=== PATIENT | female | born 1955 | race Caucasian/White ===

== ENCOUNTER 2022-01-14 19:43 | Emergency (ER) | payer OTHER ==
--- OUTSIDE RECORDS SUMMARY | 2022-01-14 19:49 | XMS REPORT | Continuity of Care Document ---
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 He alth 11:40: s 40 No known 2020-0 No No known UT medications 9-21 medication He alth 11:40: s 40 metFORMIN 2020-0 Yes TAKE 1 UT (Glucophage 9-16 TABLET BY [facility] ) 500 MG 00:00: MOUTH TWO tablet 00 TIMES A DAY (WITH BREAKFAST AND SUPPER) metFORMIN Yes TAKE 1 UT (Glucophage 9-16 TABLET BY [facility] ) 500 MG 00:00: MOUTH TWO tablet 00 TIMES A DAY (WITH BREAKFAST AND SUPPER) metFORMIN 2020-0 Yes TAKE 1 UT (Glucophage 9-16 TABLET BY [facility] ) 500 MG 00:00: MOUTH TWO tablet 00 TIMES A DAY (WITH BREAKFAST AND SUPPER) metFORMIN 2020-0 Yes TAKE 1 UT (Glucophage 9-16 TABLET BY [facility] ) 500 MG 00:00: MOUTH TWO tablet 00 TIMES A DAY (WITH BREAKFAST AND SUPPER) metFORMIN 2020-0 Yes TAKE 1 UT (Glucophage 9-16 TABLET BY [facility] ) 500 MG 00:00: MOUTH TWO tablet 00 TIMES A DAY (WITH BREAKFAST AND SUPPER) metFORMIN 2020-0 Yes TAKE 1 UT (Glucophage 9-16 TABLET BY [facility] ) 500 MG 00:00: MOUTH TWO tablet 00 TIMES A DAY (WITH BREAKFAST AND SUPPER) metFORMIN 2020-0 Yes TAKE 1 UT (Glucophage 9-16 TABLET BY [facility] ) 500 MG 00:00: MOUTH TWO tablet 00 TIMES A DAY (WITH BREAKFAST AND SUPPER) metFORMIN 2020-0 Yes TAKE 1 UT (Glucophage 9-16 TABLET BY [facility] ) 500 MG 00:00: MOUTH TWO tablet 00 TIMES A DAY (WITH BREAKFAST AND SUPPER) metFORMIN 2020-0 Yes TAKE 1 UT (Glucophage 9-16 TABLET BY [facility] ) 500 MG 00:00: MOUTH TWO tablet 00 TIMES A DAY (WITH BREAKFAST AND SUPPER) metFORMIN 2020-0 Yes TAKE 1 UT (Glucophage 9-16 TABLET BY [facility] ) 500 MG 00:00: MOUTH TWO tablet 00 TIMES A DAY (WITH BREAKFAST AND SUPPER) metFORMIN 2020-0 Yes TAKE 1 UT (Glucophage 9-16 TABLET BY [facility] ) 500 MG 00:00: MOUTH TWO tablet 00 TIMES A DAY (WITH BREAKFAST AND SUPPER) metFORMIN 2020-0 Yes TAKE 1 UT (Glucophage 9-16 TABLET BY [facility] ) 500 MG 00:00: MOUTH TWO tablet 00 TIMES A DAY (WITH BREAKFAST AND SUPPER) metFORMIN 2020-0 Yes TAKE 1 UT (Glucophage 9-16 TABLET BY [facility] ) 500 MG 00:00: MOUTH TWO tablet 00 TIMES A DAY (WITH BREAKFAST AND SUPPER) metFORMIN 2020-0 Yes TAKE 1 UT (Glucophage 9-16 TABLET BY [facility] ) 500 MG 00:00: MOUTH TWO tablet 00 TIMES A DAY (WITH BREAKFAST AND SUPPER) metFORMIN 2020-0 Yes TAKE 1 UT (Glucophage 9-16 TABLET BY [facility] ) 500 MG 00:00: MOUTH TWO tablet 00 TIMES A DAY (WITH BREAKFAST AND SUPPER) metFORMIN 2020-0 Yes TAKE 1 UT (Glucophage 9-16 TABLET BY [facility] ) 500 MG 00:00: MOUTH TWO tablet 00 TIMES A DAY (WITH BREAKFAST AND SUPPER) metFORMIN 2020-0 Yes TAKE 1 UT (Glucophage 9-16 TABLET BY [facility] ) 500 MG 00:00: MOUTH TWO tablet 00 TIMES A DAY (WITH BREAKFAST AND SUPPER) metFORMIN 2020-0 Yes TAKE 1 UT (Glucophage 9-16 TABLET BY [facility] ) 500 MG 00:00: MOUTH TWO tablet 00 TIMES A DAY (WITH BREAKFAST AND SUPPER) metFORMIN 2020-0 Yes TAKE 1 UT (Glucophage 9-16 TABLET BY [facility] ) 500 MG 00:00: MOUTH TWO tablet 00 TIMES A DAY (WITH BREAKFAST AND SUPPER) metFORMIN 2020-0 Yes TAKE 1 UT (Glucophage 9-16 TABLET BY [facility] ) 500 MG 00:00: MOUTH TWO tablet 00 TIMES A DAY (WITH BREAKFAST AND SUPPER) metFORMIN 2020-0 Yes TAKE 1 UT (Glucophage 9-16 TABLET BY [facility] ) 500 MG 00:00: MOUTH TWO tablet 00 TIMES A DAY (WITH BREAKFAST AND SUPPER) metFORMIN Yes TAKE 1 UT (Glucophage 9-16 TABLET BY [facility] ) 500 MG 00:00: MOUTH TWO tablet 00 TIMES A DAY (WITH BREAKFAST AND SUPPER) metFORMIN Yes TAKE 1 UT (Glucophage 9-16 TABLET BY [facility] ) 500 MG 00:00: MOUTH TWO tablet 00 TIMES A DAY (WITH BREAKFAST AND SUPPER) oxyCODONE 2020- No [id number] 10mg Take 2 UT (Roxicodone 11-04 tablets [facility] ) 5 MG 00:00: 04:59 (10 mg immediate 00 :00 total) by release mouth tablet every 8 (eight) hours if needed for severe pain for up to 5 days. oxyCODONE 2020- No [id number] 10mg Take 2 UT (Roxicodone 11-04 tablets [facility] ) 5 MG 00:00: 04:59 (10 mg immediate 00 :00 total) by release mouth tablet every 8 (eight) hours if needed for severe pain for up to 5 days. oxyCODONE 2020- No [id number] 10mg Take 2 UT (Roxicodone 11-04 tablets [facility] ) 5 MG 00:00: 04:59 (10 mg immediate 00 :00 total) by release mouth tablet every 8 (eight) hours if needed for severe pain for up to 5 days. oxyCODONE 2020- No [id number] 10mg Take 2 UT (Roxicodone 11-04 tablets [facility] ) 5 MG 00:00: 04:59 (10 mg immediate 00 :00 total) by release mouth tablet every 8 (eight) hours if needed for severe pain for up to 5 days. tiZANidine 2021- No [id number] 4mg QD TAKE 1 UT (Zanaflex) 10-23 CAPSULE (4 [facility] alth 4 MG 00:00: 04:59 MG TOTAL) capsule 00 :00 BY MOUTH AT NIGHT IF NEEDED FOR MUSCLE SPASMS. tiZANidine 2021- No [id number] 4mg QD TAKE 1 UT (Zanaflex) 10-23 CAPSULE (4 [facility] 4 MG 00:00: 04:59 MG TOTAL) capsule 00 :00 BY MOUTH AT NIGHT IF NEEDED FOR MUSCLE SPASMS. tiZANidine No [id number] 4mg QD TAKE 1 UT (Zanaflex) 10-23 CAPSULE (4 [facility] 4 MG 00:00: 04:59 MG TOTAL) capsule 00 :00 BY MOUTH AT NIGHT IF NEEDED FOR MUSCLE SPASMS. tiZANidine No [id number] 4mg QD TAKE 1 UT (Zanaflex) 10-23 CAPSULE (4 [facility] 4 MG 00:00: 04:59 MG TOTAL) capsule 00 :00 BY MOUTH AT NIGHT IF NEEDED FOR MUSCLE SPASMS. tiZANidine No [id number] 4mg QD TAKE 1 UT (Zanaflex) 10-23 CAPSULE (4 [facility] 4 MG 00:00: 04:59 MG TOTAL) capsule 00 :00 BY MOUTH AT NIGHT IF NEEDED FOR MUSCLE SPASMS. tiZANidine No [id number] 4mg QD TAKE 1 UT (Zanaflex) 10-23 CAPSULE (4 [facility] 4 MG 00:00: 04:59 MG TOTAL) capsule 00 :00 BY MOUTH AT NIGHT IF NEEDED FOR MUSCLE SPASMS. tiZANidine 2021- No [id number] 4mg QD TAKE 1 UT (Zanaflex) 10-23 CAPSULE (4 [facility] 4 MG 00:00: 04:59 MG TOTAL) capsule 00 :00 BY MOUTH AT NIGHT IF NEEDED FOR MUSCLE SPASMS. tiZANidine 2021- No [id number] 4mg QD TAKE 1 UT (Zanaflex) 10-23 CAPSULE (4 [facility] 4 MG 00:00: 04:59 MG TOTAL) capsule 00 :00 BY MOUTH AT NIGHT IF NEEDED FOR MUSCLE SPASMS. tiZANidine 2021- No [id number] 4mg QD TAKE 1 UT (Zanaflex) 10-23 CAPSULE (4 [facility] 4 MG 00:00: 04:59 MG TOTAL) capsule 00 :00 BY MOUTH AT NIGHT IF NEEDED FOR MUSCLE SPASMS. tiZANidine 2021- No [id number] 4mg QD TAKE 1 UT (Zanaflex) 10-23 CAPSULE (4 [facility] 4 MG 00:00: 04:59 MG TOTAL) capsule 00 :00 BY MOUTH AT NIGHT IF NEEDED FOR MUSCLE SPASMS. tiZANidine 2020- No [id number] 4mg QD TAKE 1 UT (Zanaflex) 10-23 CAPSULE (4 [facility] 4 MG 00:00: 00:00 MG TOTAL) capsule 00 :00 BY MOUTH AT NIGHT IF NEEDED FOR MUSCLE SPASMS. tiZANidine 2020- No [id number] 4mg QD TAKE 1 UT (Zanaflex) 10-23 CAPSULE (4 [facility] 4 MG 00:00: 00:00 MG TOTAL) capsule 00 :00 BY MOUTH AT NIGHT IF NEEDED FOR MUSCLE SPASMS. traMADol 2020- No [id number] 50mg Q6H Take 1 UT (Ultram) 50 10-22-11 tablet (50 [facility] MG tablet 00:00: 04:59 mg total) 00 :00 by mouth every 6 (six) hours if needed for severe pain for up to 10 days. traMADol 2020- No [id number] 50mg Q6H Take 1 UT (Ultram) 50 8- 09-11 tablet (50 [facility] MG tablet 00:00: 04:59 mg total) 00 :00 by mouth every 6 (six) hours if needed for severe pain for up to 10 days. DULoxetine 2020-0 Yes QD Take by [facility] (Cymbalta) 8-14 mouth [address] 00:00: (one) time capsule 00 each day. omeprazole 2020-0 Yes QD Take by [facility] (PriLOSEC) 8-14 mouth [address] 00:00: (one) time capsule 00 each day. DULoxetine 2020-0 Yes QD Take by [facility] (Cymbalta) 8-14 mouth [address] 00:00: (one) time capsule 00 each day. omeprazole 2021-0 Yes QD Take by [facility] (PriLOSEC) 8-14 mouth [address] 00:00: (one) time capsule 00 each day. DULoxetine 2020-0 Yes QD Take by UT (Cymbalta) 8-14 mouth [address] [facility] [address] 00:00: (one) time capsule 00 each day. omeprazole 2021-0 Yes QD Take by UT (PriLOSEC) 8-14 mouth [address] 00:00: (one) time capsule 00 each day. DULoxetine 2021-0 Yes QD Take by UT (Cymbalta) 8-14 mouth [address] [facility] [address] 00:00: (one) time capsule 00 each day. omeprazole 2021-0 Yes QD Take by UT (PriLOSEC) 8-14 mouth [address] [facility] [address] 00:00: (one) time capsule 00 each day. DULoxetine 2021-0 Yes QD Take by UT (Cymbalta) 8-14 mouth [address] [facility] [address] 00:00: (one) time capsule 00 each day. omeprazole 2021-0 Yes QD Take by UT (PriLOSEC) 8-14 mouth [address] [facility] [address] 00:00: (one) time capsule 00 each day. DULoxetine 2021-0 Yes QD Take by UT (Cymbalta) 8-14 mouth [address] [facility] [address] 00:00: (one) time capsule 00 each day. omeprazole 2021-0 Yes QD Take by UT (PriLOSEC) 8-14 mouth [address] [facility] [address] 00:00: (one) time capsule 00 each day. DULoxetine 2021-0 Yes QD Take by UT (Cymbalta) 8-14 mouth [address] [facility] [address] 00:00: (one) time capsule 00 each day. omeprazole 2021-0 Yes QD Take by UT (PriLOSEC) 8-14 mouth [address] [facility] [address] 00:00: (one) time capsule 00 each day. DULoxetine 2021-0 Yes QD Take by UT (Cymbalta) 8-14 mouth [address] [facility] [address] 00:00: (one) time capsule 00 each day. omeprazole 2021-0 Yes QD Take by UT (PriLOSEC) 8-14 mouth [address] [facility] [address] 00:00: (one) time capsule 00 each day. DULoxetine 2021-0 Yes QD Take by UT (Cymbalta) 8-14 mouth [address] [facility] [address] 00:00: (one) time capsule 00 each day. omeprazole 2021-0 Yes QD Take by UT (PriLOSEC) 8-14 mouth [address] [facility] [address] 00:00: (one) time capsule 00 each day. DULoxetine 2021-0 Yes QD Take by UT (Cymbalta) 8-14 mouth [address] [facility] [address] 00:00: (one) time capsule 00 each day. omeprazole 2021-0 Yes QD Take by UT (PriLOSEC) 8-14 mouth [address] [facility] [address] 00:00: (one) time capsule 00 each day. DULoxetine 2021-0 Yes QD Take by UT (Cymbalta) 8-14 mouth [address] [facility] [address] 00:00: (one) time capsule 00 each day. omeprazole 2021-0 Yes QD Take by UT (PriLOSEC) 8-14 mouth [address] [facility] [address] 00:00: (one) time capsule 00 each day. DULoxetine 2021-0 Yes QD Take by UT (Cymbalta) 8-14 mouth [address] [facility] [address] 00:00: (one) time capsule 00 each day. omeprazole 2021-0 Yes QD Take by UT (PriLOSEC) 8-14 mouth [address] [facility] [address] 00:00: (one) time capsule 00 each day. DULoxetine 2021-0 Yes QD Take by UT (Cymbalta) 8-14 mouth [address] [facility] [address] 00:00: (one) time capsule 00 each day. omeprazole 2021-0 Yes QD Take by UT (PriLOSEC) 8-14 mouth [address] [facility] [address] 00:00: (one) time capsule 00 each day. DULoxetine 2021-0 Yes QD Take by UT (Cymbalta) 8-14 mouth [address] [facility] [address] 00:00: (one) time capsule 00 each day. omeprazole 2021-0 Yes QD Take by UT (PriLOSEC) 8-14 mouth [address] [facility] [address] 00:00: (one) time capsule 00 each day. DULoxetine 2021-0 Yes QD Take by UT (Cymbalta) 8-14 mouth [address] [facility] [address] 00:00: (one) time capsule 00 each day. omeprazole 2021-0 Yes QD Take by UT (PriLOSEC) 8-14 mouth [address] [facility] [address] 00:00: (one) time capsule 00 each day. DULoxetine 2021-0 Yes QD Take by UT (Cymbalta) 8-14 mouth [address] [facility] [address] 00:00: (one) time capsule 00 each day. omeprazole 2021-0 Yes QD Take by UT (PriLOSEC) 8-14 mouth [address] [facility] [address] 00:00: (one) time capsule 00 each day. DULoxetine 2021-0 Yes QD Take by UT (Cymbalta) 8-14 mouth [address] [facility] [address] 00:00: (one) time capsule 00 each day. omeprazole 2021-0 Yes QD Take by UT (PriLOSEC) 8-14 mouth [address] [facility] [address] 00:00: (one) time capsule 00 each day. DULoxetine 2021-0 Yes QD Take by UT (Cymbalta) 8-14 mouth [address] [facility] [address] 00:00: (one) time capsule 00 each day. omeprazole 2021-0 Yes QD Take by UT (PriLOSEC) 8-14 mouth [address] [facility] [address] 00:00: (one) time capsule 00 each day. DULoxetine 2021-0 Yes QD Take by UT (Cymbalta) 8-14 mouth [address] [facility] [address] 00:00: (one) time capsule 00 each day. omeprazole 2021-0 Yes QD Take by UT (PriLOSEC) 8-14 mouth [address] [facility] [address] 00:00: (one) time capsule 00 each day. DULoxetine 2021-0 Yes QD Take by UT (Cymbalta) 8-14 mouth [address] [facility] [address] 00:00: (one) time capsule 00 each day. omeprazole 2021-0 Yes QD Take by UT (PriLOSEC) 8-14 mouth [address] [facility] [address] 00:00: (one) time capsule 00 each day. DULoxetine 2021-0 Yes QD Take by UT (Cymbalta) 8-14 mouth [address] [facility] [address] 00:00: (one) time capsule 00 each day. omeprazole 2021-0 Yes QD Take by UT (PriLOSEC) 8-14 mouth [address] [facility] [address] 00:00: (one) time capsule 00 each day. DULoxetine 2021-0 Yes QD Take by UT (Cymbalta) 8-14 mouth [address] [facility] [address] 00:00: (one) time capsule 00 each day. omeprazole 2020-0 Yes QD Take by UT (PriLOSEC) 8-14 mouth [address] [facility] [address] 00:00: (one) time capsule 00 each day. DULoxetine 2020-0 Yes QD Take by UT (Cymbalta) 8-14 mouth [address] [facility] [address] 00:00: (one) time capsule 00 each day. omeprazole 2020-0 Yes QD Take by UT (PriLOSEC) 8-14 mouth [address] 00:00: (one) time capsule 00 each day. tiZANidine 2021- No [id number] 4mg QD TAKE 1 UT (Zanaflex) 09-24-04 CAPSULE (4 He alth 4 MG 00:00: 04:59 MG TOTAL) capsule 00 :00 BY MOUTH AT NIGHT IF NEEDED FOR MUSCLE SPASMS. tiZANidine 2021- No [id number] 4mg QD TAKE 1 UT (Zanaflex) 09-24- CAPSULE (4 [facility] alth 4 MG 00:00: 04:59 MG TOTAL) capsule 00 :00 BY MOUTH AT NIGHT IF NEEDED FOR MUSCLE SPASMS. tiZANidine 2021- No [id number] 4mg QD TAKE 1 UT (Zanaflex) 09-24- CAPSULE (4 [facility] 4 MG 00:00: 04:59 MG TOTAL) capsule 00 :00 BY MOUTH AT NIGHT IF NEEDED FOR MUSCLE SPASMS. tiZANidine 2021- No [id number] 4mg QD TAKE 1 UT (Zanaflex) 09-24- CAPSULE (4 [facility] al[facility] 4 MG 00:00: 04:59 MG TOTAL) capsule 00 :00 BY MOUTH AT NIGHT IF NEEDED FOR MUSCLE SPASMS. tiZANidine 2021- No [id number] 4mg QD TAKE 1 UT (Zanaflex) 09-24-04 CAPSULE (4 [facility] alth 4 MG 00:00: 04:59 MG TOTAL) capsule 00 :00 BY MOUTH AT NIGHT IF NEEDED FOR MUSCLE SPASMS. tiZANidine 2021- No [id number] 4mg QD TAKE 1 UT (Zanaflex) 09-24-04 CAPSULE (4 [facility] alth 4 MG 00:00: 04:59 MG TOTAL) capsule 00 :00 BY MOUTH AT NIGHT IF NEEDED FOR MUSCLE SPASMS. tiZANidine 2021- No [id number] 4mg QD TAKE 1 UT (Zanaflex) 09-24 CAPSULE (4 [facility] al[facility] 4 MG 00:00: 04:59 MG TOTAL) capsule 00 :00 BY MOUTH AT NIGHT IF NEEDED FOR MUSCLE SPASMS. tiZANidine 2020- No [id number] 4mg QD TAKE 1 UT (Zanaflex) 09-24 CAPSULE (4 [facility] al[facility] 4 MG 00:00: 00:00 MG TOTAL) capsule 00 :00 BY MOUTH AT NIGHT IF NEEDED FOR MUSCLE SPASMS. tiZANidine 2020- No [id number] 4mg QD TAKE 1 UT (Zanaflex) 09-24 CAPSULE (4 [facility] al[facility] 4 MG 00:00: 00:00 MG TOTAL) capsule 00 :00 BY MOUTH AT NIGHT IF NEEDED FOR MUSCLE SPASMS. rosuvastati Yes TAKE 1 UT n (Crestor) 7-23 TABLET BY [facility] 10 MG 00:00: MOUTH tablet 00 DAILY IN EVENING rosuvastati Yes TAKE 1 UT n (Crestor) 7-23 TABLET BY [facility] 10 MG 00:00: MOUTH tablet 00 DAILY IN EVENING rosuvastati Yes TAKE 1 UT n (Crestor) 7-23 TABLET BY [facility] 10 MG 00:00: MOUTH tablet 00 DAILY IN EVENING rosuvastati Yes TAKE 1 UT n (Crestor) 7-23 TABLET BY [facility] 10 MG 00:00: MOUTH tablet 00 DAILY IN EVENING rosuvastati Yes TAKE 1 UT n (Crestor) 7-23 TABLET BY [facility] 10 MG 00:00: MOUTH tablet 00 DAILY IN EVENING rosuvastati Yes TAKE 1 UT n (Crestor) 7-23 TABLET BY [facility] 10 MG 00:00: MOUTH tablet 00 DAILY IN EVENING rosuvastati Yes TAKE 1 UT n (Crestor) 7-23 TABLET BY [facility] 10 MG 00:00: MOUTH tablet 00 DAILY IN EVENING rosuvastati Yes TAKE 1 UT n (Crestor) 7-23 TABLET BY [facility] 10 MG 00:00: MOUTH tablet 00 DAILY IN EVENING rosuvastati Yes TAKE 1 UT n (Crestor) 7-23 TABLET BY [facility] 10 MG 00:00: MOUTH tablet 00 DAILY IN EVENING rosuvastati Yes TAKE 1 UT n (Crestor) 7-23 TABLET BY [facility] 10 MG 00:00: MOUTH tablet 00 DAILY IN EVENING rosuvastati Yes TAKE 1 UT n (Crestor) 7-23 TABLET BY [facility] 10 MG 00:00: MOUTH tablet 00 DAILY IN EVENING rosuvastati Yes TAKE 1 UT n (Crestor) 7-23 TABLET BY [facility] 10 MG 00:00: MOUTH tablet 00 DAILY IN EVENING rosuvastati Yes TAKE 1 UT n (Crestor) 7-23 TABLET BY [facility] 10 MG 00:00: MOUTH tablet 00 DAILY IN EVENING rosuvastati Yes TAKE 1 UT n (Crestor) 7-23 TABLET BY [facility] 10 MG 00:00: MOUTH tablet 00 DAILY IN EVENING rosuvastati Yes TAKE 1 UT n (Crestor) 7-23 TABLET BY [facility] 10 MG 00:00: MOUTH tablet 00 DAILY IN EVENING rosuvastati Yes TAKE 1 UT n (Crestor) 7-23 TABLET BY [facility] 10 MG 00:00: MOUTH tablet 00 DAILY IN EVENING rosuvastati Yes TAKE 1 UT n (Crestor) 7-23 TABLET BY [facility] 10 MG 00:00: MOUTH tablet 00 DAILY IN EVENING rosuvastati Yes TAKE 1 UT n (Crestor) 7-23 TABLET BY [facility] 10 MG 00:00: MOUTH tablet 00 DAILY IN EVENING rosuvastati Yes TAKE 1 UT n (Crestor) 7-23 TABLET BY [facility] 10 MG 00:00: MOUTH tablet 00 DAILY IN EVENING rosuvastati Yes TAKE 1 UT n (Crestor) 7-23 TABLET BY [facility] 10 MG 00:00: MOUTH tablet 00 DAILY IN EVENING rosuvastati Yes TAKE 1 UT n (Crestor) 7-23 TABLET BY [facility] 10 MG 00:00: MOUTH tablet 00 DAILY IN EVENING rosuvastati Yes TAKE 1 UT n (Crestor) 7-23 TABLET BY [facility] 10 MG 00:00: MOUTH tablet 00 DAILY IN EVENING rosuvastati Yes TAKE 1 UT n (Crestor) 7-23 TABLET BY [facility] 10 MG 00:00: MOUTH tablet 00 DAILY IN EVENING tiZANidine 2021- No [id number] 4mg QD TAKE 1 UT (Zanaflex) 08-29- CAPSULE (4 He alth 4 MG 00:00: 04:59 MG TOTAL) capsule 00 :00 BY MOUTH AT NIGHT IF NEEDED FOR MUSCLE SPASMS. tiZANidine 2020- No [id number] 4mg QD TAKE 1 UT (Zanaflex) 08-29 CAPSULE (4 He alth 4 MG 00:00: 00:00 MG TOTAL) capsule 00 :00 BY MOUTH AT NIGHT IF NEEDED FOR MUSCLE SPASMS. tiZANidine 2021- No [id number] 4mg QD Take 1 UT (Zanaflex) 08-07 capsule (4 He alth 4 MG 00:00: 04:59 mg total) capsule 00 :00 by mouth at night if needed for muscle spasms. tiZANidine 2020- No [id number] 4mg QD Take 1 UT (Zanaflex) 08-07- capsule (4 He alth 4 MG 00:00: 00:00 mg total) capsule 00 :00 by mouth at night if needed for muscle spasms. tiZANidine 2020- No [id number] 4mg QD Take 1 UT (Zanaflex) 08-07- capsule (4 He alth 4 MG 00:00: 00:00 mg total) capsule 00 :00 by mouth at night if needed for muscle spasms. tiZANidine 2020- No [id number] 4mg QD Take 1 UT (Zanaflex) 08-07- capsule (4 He alth 4 MG 00:00: 00:00 mg total) capsule 00 :00 by mouth at night if needed for muscle spasms. ergocalcife Yes TAKE 1 [facility] rol 4-14 CAPSULE [facility] (Vitamin 00:00: WEEKLY. D2) 1.25 MG 00 (33374 UT) capsule ergocalcife Yes TAKE 1 UT rol 06-05 CAPSULE [facility] (Vitamin 00:00: WEEKLY. D2) 1.25 MG 00 (99331 UT) capsule traMADol traMADol Yes CHACE 1 Q6H TAKE 1 UT HCl - 50 MG HCl - 50 MG -14 RAMIRE[facility] TABLET [facility] Oral Tablet Oral Tablet 00:00: P.A. EVERY 6 ans 00 HOURS PRN pain Vitamin D Vitamin D Yes CHACE TAKE 1 UT (Ergocalcif (Ergocalcif -14 [facility]IRE[facility] CAPSULE [facility] anil) 1.25 anil) 1.25 00:00: P.A. WEEKLY. ans MG (24294 MG (63036 00 UT) Oral UT) Oral Capsule Capsule ergocalcife 2020- No TAKE 1 UT rol 06-05 CAPSULE Health (Vitamin 00:00: 00:00 WEEKLY. D2) 1.25 MG 00 :00 (75096 UT) capsule ergocalcife 0 2020- No TAKE 1 UT rol 06-05 CAPSULE Health (Vitamin 00:00: 00:00 WEEKLY. D2) 1.25 MG 00 :00 (31313 UT) capsule HYDROcodone HYDROcodone Yes MILLI 2 TAKE 1 TO UT -Acetaminop -Acetaminop 4 MALIK Shah 2 TABLETS [facility] hen 10-325 hen 10-325 00:00: EVERY 4 TO ans MG Oral MG Oral 00 6 HOURS Tablet Tablet NEEDED FOR PAIN. TRAMADOL 50 0 Yes [id number] TAKE 1 [facility] mg tablet 6-21 TABLET BY [facility] o f 00:00: MOUTH [place] 00 EVERY 8 Medical HOURS Branch NEEDED FOR PAIN SCALE 7-10 TRAMADOL 50 Yes [id number] TAKE 1 [facility] mg tablet 6-21 TABLET BY ity o f 00:00: MOUTH [place] 00 EVERY 8 Medical HOURS Branch NEEDED FOR PAIN SCALE 7-10 TRAMADOL 50 2018-0 Yes [id number] TAKE 1 [facility] mg tablet 6-21 TABLET BY ity o f 00:00: MOUTH [place] 00 EVERY 8 Medical HOURS Branch NEEDED FOR PAIN SCALE 7-10 TRAMADOL 50 2018-0 Yes [id number] TAKE 1 [facility] mg tablet 6-21 TABLET BY ity o f 00:00: MOUTH [place] 00 EVERY 8 Medical HOURS Branch NEEDED FOR PAIN SCALE 7-10 TRAMADOL 50 2019-0 Yes [id number] TAKE 1 [facility] mg tablet 6-21 TABLET BY ity o f 00:00: MOUTH [place] EVERY 8 Medical HOURS Branch NEEDED FOR PAIN SCALE 7-10 TRAMADOL 50 2019-0 Yes [id number] TAKE 1 [facility] mg tablet 6-21 TABLET BY ity o f 00:00: MOUTH [place] EVERY 8 Medical HOURS Branch NEEDED FOR PAIN SCALE 7-10 omeprazole 2019-0 Yes 40mg Take 40 mg U nivers 40 mg 2-02 by mouth ity of capsule 00:00: in the [place] morning. Medical Branch omeprazole 2019-0 Yes 40mg Take 40 mg U nivers 40 mg 2-02 by mouth ity of capsule 00:00: in the [place] morning. Medical Branch omeprazole 2019-0 Yes 40mg Take 40 mg U nivers 40 mg 2-02 by mouth ity of capsule 00:00: in the [place] morning. Medical Branch omeprazole 2019-0 Yes 40mg Take 40 mg U nivers 40 mg 2-02 by mouth ity of capsule 00:00: in the [place] morning. Medical Branch omeprazole 2019-0 Yes 40mg Take 40 mg U nivers 40 mg 2-02 by mouth ity of capsule 00:00: in the [place] morning. Medical Branch omeprazole 2019-0 Yes 40mg Take 40 mg U nivers 40 mg 2-02 by mouth ity of capsule 00:00: in the [place] morning. Medical Branch ondansetron 2019-0 Yes 4mg Take 4 mg U nivers 4 mg tablet 1-08 by mouth ity of 00:00: as needed. Medical Branch ondansetron 2019-0 Yes 4mg Take 4 mg U nivers 4 mg tablet 1-08 by mouth ity of 00:00: as needed. Medical Branch ondansetron 2019-0 Yes 4mg Take 4 mg U nivers 4 mg tablet 1-08 by mouth ity of 00:00: as needed. Medical Branch ondansetron 2019-0 Yes 4mg Take 4 mg U nivers 4 mg tablet 1-08 by mouth ity of 00:00: as needed. Medical Branch ondansetron 2019-0 Yes 4mg Take 4 mg U nivers 4 mg tablet 1-08 by mouth ity of 00:00: as needed. [place] [facility] ondansetron 2019-0 Yes 4mg Take 4 mg U nivers 4 mg tablet 1-08 by mouth ity of 00:00: as needed. [place] [facility] mesalamine 2019-0 Yes 800mg Take 800 Un theresa 800 mg EC 1-04 mg by ity of tablet 00:00: mouth in [place] 00 the Medical morning Branch and 800 mg in the evening. mesalamine 2019-0 Yes 800mg Take 800 Un theresa 800 mg EC 1-04 mg by ity of tablet 00:00: mouth in [place] [address] the Medical morning Branch and 800 mg in the evening. mesalamine 2019-0 Yes 800mg Take 800 Un theresa 800 mg EC 1-04 mg by ity of tablet 00:00: mouth in [place] [address] the Medical morning Branch and 800 mg in the evening. mesalamine 2019-0 Yes 800mg Take 800 Un theresa 800 mg EC 1-04 mg by ity of tablet 00:00: mouth in [place] [address] the Medical morning Branch and 800 mg in the evening. mesalamine 2019-0 Yes 800mg Take 800 Un theresa 800 mg EC 1-04 mg by ity of tablet 00:00: mouth in [place] [address] the Medical morning Branch and 800 mg in the evening. mesalamine 2019-0 Yes 800mg Take 800 Un theresa 800 mg EC 1-04 mg by ity of tablet 00:00: mouth in [place] [address] the Medical morning Branch and 800 mg in the evening. valsartan 2019-0 Yes 80mg Take 80 mg Un theresa 80 mg 1-02 by mouth ity of tablet 00:00: in the [place] morning. Medical Branch valsartan 2019-0 Yes 80mg Take 80 mg Un theresa 80 mg 1-02 by mouth ity of tablet 00:00: in the [place] morning. Medical Branch valsartan 2019-0 Yes 80mg Take 80 mg Un theresa 80 mg 1-02 by mouth ity of tablet 00:00: in the [place] morning. Medical Branch valsartan 2019-0 Yes 80mg Take 80 mg Un theresa 80 mg 1-02 by mouth ity of tablet 00:00: in the [place] morning. Medical Branch valsartan 2019-0 Yes 80mg Take 80 mg Un theresa 80 mg 1-02 by mouth ity of tablet 00:00: in the [place] 00 morning. Medical Branch valsartan 2019-0 Yes 80mg Take 80 mg Un theresa 80 mg -02 by mouth ity of tablet 00:00: in the [place] 00 morning. Medical Branch Immunizations Ordered Filled Immunization Date Status Comments [facility] e Immunization Name Name SARS-COV-2 COVID-19 2021-02-04 Completed Unive rsity of MODERNA 12+ YRS 00:00:00 [place] [facility] ical VACCINE Branch SARS-COV-2 COVID-19 2021-02-04 Completed Unive rsity of MODERNA 12+ YRS 00:00:00 [facility] ical VACCINE Branch SARS-COV-2 COVID-19 2021-02-04 Completed [facility]ive rsity of MODERNA 12+ YRS 00:00:00 [facility] ical VACCINE Branch SARS-COV-2 COVID-19 2021-02-04 Completed [facility]ive rs[facility] of MODERNA 12+ YRS 00:00:00 [facility] ical VACCINE Branch COVID-19 Moderna 18 2020-04-16 [facility] Vacc[facility]:00 COVID-19 Moderna 18 2020-04-16 [facility] Vacc[facility] 00:00:00 COVID-19 Moderna 18 2020-04-16 Completed [facility] Vacc[facility] 00:00:00 COVID-19 Moderna 18 2020-04-16 [facility] 00:00:00 COVID-19 Moderna 12 2020-04-16 Completed [facility] 00:00:00 (WET TRIMMER) COVID-19 Moderna 12 2020-04-16 Completed [facility] 00:00:00 (WET TRIMMER) COVID-19 Moderna 12 2020-04-16 Completed [facility] 00:00:00 (WET TRIMMER) COVID-19 Moderna 12 2020-04-16 Completed [facility] 00:00:00 (WET TRIMMER) COVID-19 Moderna 12 2020-04-16 Completed [facility] 00:00:00 (WET TRIMMER) COVID-19 Moderna 12 2020-04-16 Completed [facility] 00:00:00 (WET TRIMMER) COVID-19 Moderna 18 2020-03-19 Completed [facility] 00:00:00 COVID-19 Moderna 18 2020-03-19 Completed [facility] 00:00:00 COVID-19 Moderna 18 2020-03-19 Completed [facility] 00:00:00 COVID-19 Moderna 18 2020-03-19 Completed [facility] 00:00:00 COVID-19 Moderna 12 2020-03-19 Completed [facility] 00:00:00 (WET TRIMMER) COVID-19 Moderna 12 2020-03-19 Completed [facility] 00:00:00 (WET TRIMMER) COVID-19 Moderna 12 2020-03-19 Completed [facility] 00:00:00 (WET TRIMMER) COVID-19 Moderna 12 2020-03-19 Completed [facility] 00:00:00 (WET TRIMMER) COVID-19 Moderna 12 2020-03-19 Completed [facility] 00:00:00 (WET TRIMMER) COVID-19 Moderna 12 2020-03-19 Completed [facility] 00:00:00 (WET TRIMMER) Vital Signs Vital Name Observation Time Observation Value Comments Source Systolic blood 2021-12-10 14:20:00 154 mm[Hg] Univer sity of pressure [facility] Diastolic blood 2021-12-10 14:20:00 61 mm[Hg] Unive [facility] Heart rate 2021-12-10 14:20:00 59 /min [facility] Respiratory rate 2021-12-10 14:20:00 16 /min [facility] Oxygen saturation in 2021-12-10 14:20:00 99 /min [facility] Arterial blood by [facility] Pulse oximetry Branch Body temperature 2021-12-10 14:06:00 36.11 Pratima [facility] Body height 2021-12-08 11:57:00 157.5 cm [facility] Body weight 2021-12-08 11:57:00 98.9 kg [facility] BMI 2021-12-08 11:57:00 39.87 kg/m2 [facility] Systolic blood 2021-12-10 12:49:00 135 mm[Hg] Univer sity of pressure [facility] Diastolic blood 2021-12-10 12:49:00 61 mm[Hg] Unive rsity of pressure [facility] Heart rate 2021-12-10 12:49:00 78 /min [facility] Body temperature 2021-12-10 12:42:00 36.56 Pratima [facility] Respiratory rate 2021-12-10 12:42:00 18 /min Univ [facility] Oxygen saturation in 2021-12-10 12:42:00 99 /min [facility] of Arterial blood by [place] [employer] Pulse oximetry Branch Body height 2021-12-08 11:57:00 157.5 cm [facility] Body weight 2021-12-08 11:57:00 98.9 kg [facility] BMI 2021-12-08 11:57:00 39.87 kg/m2 [facility] Body height 2021-12-05 16:04:00 [facility]5 [facility] 2021-12-05 16:04:00 98.431 [facility] BMI 2021-12-05 16:04:00 39.68 kg[facility]m2 [facility] Systolic blood 2021-11-26 14:56:00 126 mm[Hg] Univer sity of pressure [facility] Diastolic blood 2021-11-26 14:56:00 60 mm[Hg] Unive rsity of pressure [facility] Heart rate 2021-11-26 14:56:00 84 /min [facility] Respiratory rate 2021-11-26 14:56:00 19 /min [facility] Oxygen saturation in 2021-11-26 14:56:00 98 /min University of Arterial blood by [facility] Pulse oximetry Branch Body temperature 2021-11-26 14:40:00 36.61 Pratima Univ [facility] Body height 2021-11-13 16:35:00 157.5 cm [facility] Body weight 2021-11-13 16:35:00 105.1 kg [facility] BMI 2021-11-13 16:35:00 42.37 kg/m2 Universi ty [facility] Systolic blood 2021-11-26 12:36:00 154 mm[Hg] Univer sity of pressure [facility] Diastolic blood 2021-11-26 12:36:00 84 mm[Hg] Unive rsity of pressure [facility] Heart rate 2021-11-26 12:36:00 89 /min Universi ty [facility] Body temperature 2021-11-26 12:36:00 36.33 Pratima [facility] Respiratory rate 2021-11-26 12:36:00 14 /min [facility] O[facility] saturation in 2021-11-26 12:36:00 99 /min [facility] Arterial blood by [facility] Pulse oximetry Branch Body height 2021-11-13 16:35:00 157.5 cm Universi ty [facility] Body weight 2021-11-13 16:35:00 105.1 kg Universi [facility] BMI 2021-11-13 16:35:00 42.37 [facility] Body height 2021-11-11 15:50:00 157.5 cm [facility] 2021-11-11 15:50:00 98.431 [facility] BMI 2021-11-11 15:50:00 39.69 kg/m2 [facility] Body height 2021-10-13 15:02:00 157.5 cm [facility] Body weight 2021-10-13 15:02:00 100.245 kg [facility] BMI 2021-10-13 15:02:00 40.42 kg/m2 [facility] Body height 2020-11-22 23:08:16 156.2 cm [facility] Body weight 2020-11-22 23:08:16 100 kg [facility] BMI 2020-11-22 23:08:16 40.98 kg/m2 [facility] Body height 2020-11-22 23:08:16 156.2 cm [facility] Body weight 2020-11-22 23:08:16 100 kg [facility] BMI 2020-11-22 23:08:16 40.98 kg/m2 [facility] Body height 2020-11-22 23:08:16 156.2 cm [facility] Body weight 2020-11-22 23:08:16 100 kg [facility] BMI 2020-11-22 23:08:16 40.98 kg/m2 [facility] Body height 2020-11-22 23:08:16 156.2 cm [facility] Body weight 2020-11-22 23:08:16 100 kg [facility] BMI 2020-11-22 23:08:16 40.98 kg/m2 [facility] Body height 2020-11-12 16:13:00 156.2 cm [facility] Body weight 2020-11-12 16:13:00 100.336 kg [facility] BMI 2020-11-12 16:13:00 41.12 kg/m2 [facility] Procedures Procedure Date / Time Performing Source Performed Clinician PHACOEMULSIFICATION OF 2021-12-10 Rome Serrano [facility] CATARACT WITH INTRAOCULAR 13:25:00 Medica l Branch LENS IMPLANT POCT GLUCOSE (AUTOMATED) 2021-12-10 Rome Serrano [facility] 12:50:00 Medical Branch POCT GLUCOSE (AUTOMATED) 2021-12-10 Rome Serrano [facility] 12:50:00 Medical Branch PATIENT QUESTIONNAIRE 2021-12-10 Doctor Unassvineet, [facility] 05:01:00 [place] [facility] DAY SURGERY - ADC 2021-12-10 Doctor Unassigned, [facility] 05:01:00 [place] [facility] CONSENT/REFUSAL FOR DIAGNOSIS 2021-12-08 Doctor Unassigned, [facility] AND TREATMENT 15:08:31 [place] [facility] CONSENT/REFUSAL FOR DIAGNOSIS 2021-12-08 Doctor Unassigned, [facility] AND TREATMENT 15:08:31 [place] [facility] ASSIGNMENT OF BENEFITS 2021-12-08 Doctor Unassvineet, [facility] 15:07:39 [place] [facility] ASSIGNMENT OF BENEFITS 2021-12-08 Doctor Unassigned, [facility] 15:07:39 [place] [facility] PHACOEMULSIFICATION OF 2021-11-26 Rome Serrano [facility] CATARACT WITH INTRAOCULAR 14:05:00 Medica l Branch LENS IMPLANT POCT GLUCOSE (AUTOMATED) 2021-11-26 Rome Serrano [facility] 12:56:00 Medical Branch POCT GLUCOSE (AUTOMATED) 2021-11-26 Rome Serrano [facility] 12:56:00 Medical Branch POCT GLUCOSE(AGE >30DAYS) 2021-11-26 Rome Serrano [facility] 12:55:00 Medical Branch POCT GLUCOSE(AGE >30DAYS) 2021-11-26 Rome Serrano [facility] 12:55:00 Medical Branch ASSIGNMENT OF BENEFITS 2021-11-21 Doctor Unassigned, [facility] 21:33:15 [place] [facility] XR FEMUR 2+ VW LEFT 2020-11-22 Kristie Jan [facility] 16:40:27 XR FEMUR 2+ VW LEFT 2020-11-22 Kristie Jan [facility] 16:40:[address] [facility] 14:30[facility] 2020[facility]10[facility] 14[facility]30:51 Post Op Promis 29 Survey 2020-05-23 [facility] Encounters Start End Encounter Admission Attending Care Care Encounter Source Date/Time Date/Time Type Type Clinicians Facility Department ID 2021-12-29 Outpatient [facility] [id number] [place] 07:45:14 [id number] [facility] 2021-03-10 Outpatient [facility] [id number] [place] 10:27:15 [facility] 2021-01-27 Outpatient [facility] [id number] [place] 10:02:37 Health 2021-01-10 Outpatient [facility] [id number] [place] 08:59:27 [facility] 2020-12-09 [facility] [id number] [place] 12:41:11 YASEMIN [facility] 2020-12-09 Outpatient [facility] [id number] [place] 11:48:25 Health 2020-11-11 Outpatient [facility] [id number] [place] 09:03:22 Health 2020-11-11 Outpatient [facility] [id number] [place] 09:03:22 Health 2020-08-09 Outpatient [facility] [id number] [place] 14:07:26 Health 2020-08-01 Outpatient [facility] [id number] [place] 15:12:43 Health 2020-07-15 Outpatient MALIK, [facility] [id number] [place] 01:02:05 MILLI [facility] 2022-01-12 2022-01-12 Outpatient ZAN, [facility] [id number] [place] 10:15:00 10:15:00 YASEMIN Health 2021-12-29 2021-12-29 Outpatient [facility] [id number] [place] 10:00:00 10:50:58 Health 2021-12-29 2021-12-29 Office DENISSE Zuluaga 6414 [id number] [place] 10:00:00 10:50:58 Visit Yasemin KRAUS [id number] Health 9.2.7.2.686 [id number] 1 2021-12-19 2021-12-19 Office Pilar Pelaez [facility] [id number] [place] 11:30:00 12:13:34 Visit [place] 350.1.13.58 H [facility] 9.2.7.2.686 [address] [id number] 2021-12-12 2021-12-12 Outpatient PILAR HUTTON [facility] [id number] [facility] 12:00:00 12:00:00 98 [facility] 2021-12-10 2021-12-10 [facility]patient [facility] [id number] Univers 07:37:00 09:34:00 ROME carver [facility] 2021-12-10 2021-12-10 Hospital [facility] [id number] Univers 07:37:00 09:34:00 Encounter Rome GARNER [id number] ity [place] [id number] [facility] 071 Branch 2021-12-10 2021-12-10 Surgery [facility] [id number] Univers 08:25:00 08:58:00 Rome GARNER [id number] it[place] [id number] [facility] 020 Branch 2021-12-05 2021-12-05 Office LatanyaPilar [facility] [id number] [place] 11:00:00 11:41:03 Visit WAYLON 350.1.13.58 H [facility] 9.2.7.2.686 [address] [id number] 2021-12-01 2021-12-01 Outpatient LATANYA PILAR [facility] [id number] [place] 12:30:00 12:30:00 Health 2021-11-26 2021-11-26 Hospital [facility] [id number] Univers 07:26:00 10:11:00 Encounter [place] GARNER 350.1.13.10 [place] [id number] [address] 2021-11-26 2021-11-26 Outpatient R [facility] [id number] Univers 07:26:00 10:11:00 ROME carver [facility] 2021-11-26 2021-11-26 Surgery [facility] [id number] [facility] 08:25:00 09:01:00 Rome GARNER 350.1.13.10 wen [place] [id number] [facility] [address] [place] 2021-11-24 2021-11-24 [facility] [id number] Univers 09:15:00 09:15:00 ROME carver [facility] 2021-11-21 2021-11-21 Clinical Education Specialist Jackeline, [facility] [id number] [id number] Univers 16:00:00 16:15:00 Visit [place] Serrano 350.1.13.1 0 [place] PROF[place] [id number] [address] 2021-11-21 2021-11-21 [facility] [id number] Univers 16:00:00 16:00:00 ROME carver [facility] 2021-11-21 2021-11-21 Orders Doctor ESTER 1.2.840.114 [id number] Univers 00:00:00 00:00:00 Only Unassigned, DEVENDRA 350.1.13.10 ity of [place] [facility] 4.2.7.2.686 Macario as [id number] [address] 2021-11-11 2021-11-11 Outpatient [facility] [id number] [place] 10:45:00 11:27:45 Health 2021-11-11 2021-11-11 Office Danny-Soledad [facility] 1.2.840.114 [id number] [place] 10:45:00 11:27:29 Visit uintana, ORTHO AND 350.1.13.58 Health Grabiel [facility] 9.2.7.2.686 MEDICAL [id number] PLAZA 2 2021-10-13 2021-10-13 Office DENISSE Zuluaga 6414 1.2.840.114 [id number] [place] 10:15:00 10:28:[address] 350.1.13.58 Health 9.2.7.2.686 [id number] 1 2021-10-13 2021-10-13 Outpatient [facility] [id number] [place] 10:00:00 10:28:36 Health 2021-08-11 2021-08-11 Office Zan, DENISSE 6414 1.2.840.114 [id number] [place] 10:15:00 10:15:[address] 350.1.13.58 Health 9.2.7.2.686 [id number] 1 2021-07-14 2021-07-14 Office DENISSE Nina 6414 1.2.840.114 [id number] [place] 10:15:00 10:36:[address] 350.1.13.58 Health 9.2.7.2.686 [id number] 1 2021-06-30 2021-06-30 Outpatient KRISTIE, [facility] [id number] [facility] 05:38:00 23:59:00 JAN 2021-06-30 2021-06-30 Outpatient KRISTIE, [facility] [id number] [place] 07:45:00 07:45:00 [facility] 2021-06-02 2021-06-02 Office Zan, DENISSE 6414 1.2.840.114 [id number] [place] 11:15:00 13:07:[address] 350.1.13.58 Health 9.2.7.2.686 [id number] 1 2021-03-03 2021-03-03 Office Zan, UTP 6414 1.2.840.114 [id number] [place] 11:00:00 11:27:[address] 350.1.13.58 Health 9.2.7.2.686 [id number] 1 2021-01-10 2021-01-10 AlbertDENISSE Knutson 6414 1.2.840.114 [id number] [place] 00:00:00 00:00:[address] 350.1.13.58 Health 9.2.7.2.686 [id number] 1 2020-12-16 2020-12-16 DENISSE Garcia [id number] [place] 00:00:00 00:00:00 Jotimh TRAUMA 350.1.13.58 He alth CLINIC 9.2.7.2.686 [id number] 1 2020-12-09 2020-12-09 Office Zan DENISSE 1.2.840.114 [id number] [place] 11:02:10 12:40:28 Visit Yasemin TRAUMA 350.1.13.58 He alth CLINIC 9.2.7.2.686 [id number] 1 2020-11-22 2020-11-25 Outpatient ACHFRANK, [facility] [id number] [facility] 18:25:00 15:05:00 JAN 2020-11-25 2020-11-25 Orders Sonali Brandon UTP 1.2.840.114 1 [id number] [place] 00:00:00 00:00:00 Only Sonali Brandon TRAUMA 350.1.13.58 Health CLINIC 9.2.7.2.686 [id number] 1 2020-11-22 2020-11-22 EXT H OP KRISTIE, EXT MSRDP 1.2.840.114 1 [id number] [place] 08:49:54 12:19:54 JAN LOCATION 350.1.13.58 H ealth 9.2.7.2.686 [id number] 1 2020-11-22 2020-11-22 EXT MH OP Achfrank, EXT MSRDP 1.2.840.114 1 [id number] [place] 08:49:54 12:19:54 Jan LOCATION 350.1.13.58 H ealth 9.2.7.2.686 [id number] 1 2020-11-16 2020-11-16 Refill DENISSE Ramirez 1.2.182.316 [id number] [place] 00:00:00 00:00:00 Joannah TRAUMA 350.1.13.58 He alth CLINIC 9.2.7.2.686 [id number] 1 2020-11-14 2020-11-14 Refill DENISSE Ramirez 1.2.127.848 [id number] [place] 00:00:00 00:00:00 Joannah TRAUMA 350.1.13.58 He alth CLINIC 9.2.7.2.686 [id number] 1 2020-11-12 2020-11-12 Office Eve [facility] 1.2.840.114 [id number] [place] 10:40:58 12:20:13 Visit uintana, ORTHO AND 350.1.13.58 Health Grabiel [facility] 9.2.7.2.686 MEDICAL [id number] PLAZA 2 2020-11-04 2020-11-04 Office DENISSE Zuluaga 1.2.840.114 [id number] [place] 07:37:07 09:13:02 Visit Yasemin TRAUMA 350.1.13.58 He alth CLINIC 9.2.7.2.686 [id number] 1 2020-11-04 2020-11-04 Refill Patricia Alexander UTP 1.2.840.11 [id number] [place] 00:00:00 00:00:00 Patricia Alexander TRAUMA 350.1.13.58 Health CLINIC 9.2.7.2.686 [id number] 1 2020-10-22 2020-10-22 Sonali Ignacio UTP 1.2.840.114 1 [id number] [place] 00:00:00 00:00:00 Only Sonali Brandon TRAUMA 350.1.13.58 Health CLINIC 9.2.7.2.686 [id number] 1 2020-10-19 2020-10-19 Genoveva Ramirez UTP 1.2.805.709 [id number] [place] 00:00:00 00:00:00 Joannah TRAUMA 350.1.13.58 He alth CLINIC 9.2.7.2.686 [id number] 1 2020-10-18 2020-10-18 EXT MHH OP EXT MSRDP 1.2.840.114 1 [id number] [place] 00:00:00 00:00:00 LOCATION 350.1.13.58 H ealth 9.2.7.2.686 [id number] 0 2020-10-18 2020-10-18 EXT MHH OP EXT MSRDP 1.2.840.114 1 [id number] [place] 00:00:00 00:00:00 LOCATION 350.1.13.58 H ealth 9.2.7.2.686 [id number] 0 2020-10-11 2020-10-11 Sonali Ignacio UTP 1.2.840.114 1 [id number] [place] 00:00:00 00:00:00 Only Sonali Brandon TRAUMA 350.1.13.58 Health CLINIC 9.2.7.2.686 [id number] 1 2020-10-11 2020-10-11 Sonali Ignacio UTP 1.2.840.114 1 [id number] [place] 00:00:00 00:00:00 Only Sonali Brandon TRAUMA 350.1.13.58 Health CLINIC 9.2.7.2.686 [id number] 1 2020-10-09 2020-10-09 Office DENISSE Oradz 1.2.840.114 [id number] [place] 10:48:31 11:58:44 Visit Milli TRAUMA 350.1.13.58 He alth CLINIC 9.2.7.2.686 [id number] 1 2020-10-08 2020-10-08 Chloé Brandon Sonali UTP 1.2.840.114 1 [id number] [place] 00:00:00 00:00:00 Only Sonali Brandon TRAUMA 350.1.13.58 Health CLINIC 9.2.7.2.686 [id number] 1 2020-09-22 2020-09-22 Refill DENISSE Ramirez 1.2.364.269 [id number] [place] 00:00:00 00:00:00 Joannah TRAUMA 350.1.13.58 He alth CLINIC 9.2.7.2.686 [id number] 1 2020-08-29 2020-08-29 Refill DENISSE Ordaz 1.2.840.114 [id number] [place] 00:00:00 00:00:00 Milli TRAUMA 350.1.13.58 He alth CLINIC 9.2.7.2.686 [id number] 1 2020-08-07 2020-08-07 Office DENISSE Ordaz 1.2.840.114 [id number] [place] 09:59:07 11:25:55 Visit Milli TRAUMA 350.1.13.58 He alth CLINIC 9.2.7.2.686 [id number] 1 2020-08-07 2020-08-07 Orders Soanli Brandon UTP 1.2.840.114 1 [id number] [place] 00:00:00 00:00:00 Only Sonali Brandon TRAUMA 350.1.13.58 Health CLINIC 9.2.7.2.686 [id number] 1 2020-06-14 2020-06-14 Outpatient MALIK [facility] [id number] [facility] 06:19:00 23:59:00 MILLI 2020-06-05 2020-06-05 AppointDENISSE [facility] 7 [id number] [place] 11:00:00 11:00:00 t; CHACE, Trauma Physi ci Becca [facility] 2020-05-22 2020-05-22 AppointDENISSE Perez UTP [id number] [place] 09:15:00 09:15:00 t; MILLI ORDAZ, Physi colette MORLEY M.D. ans Alyssa 2020-04-28 2020-04-28 DENISSE Raya [facility] [id number] [place] 12:00:00 12:00:00 t; MILLI ORDAZ, Physi ci Alyssa MORLEY M.D. Results Test Description Test Time Test Comments Results Result Comments Source POCT GLUCOSE (AUTOMATED) 2021-12-10 12:54:45 Test Item Value Reference Range Interpretation Comme nts POCT GLU (test code = 0323239874) 151 mg/dL 70-110 H Lab Interpretation (test code = 30313-2) Abnormal [facility] GLUCOSE (AUTOMATED)2021-12-10 12:54:45 Test Item Value Reference Range Interpretation Comments POCT GLU (test code = 7512455320) 151 mg/dL 70-110 H Lab Interpretation (test code = Abnormal 24633-7) [facility] GLUCOSE (AUTOMATED)2021-11-26 13:01:46 Test Item Value Reference Range Interpretation Comments POCT GLU (test code = 3335442936) 115 mg/dL 70-110 H Lab Interpretation (test code = Abnormal 55389-3) [facility] GLUCOSE (AUTOMATED)2021-11-26 13:01:46 Test Item Value Reference Range Interpretation Comments POCT GLU (test code = [id number]) 115 mg/dL 70-110 H Lab Interpretation (test code = Abnormal 46191-4) [facility] GLUCOSE(AGE >30DAYS)2021-11-26 12:55:00 Test Item Value Reference Range Interpretation Comments POCT Glu (age>30days) (test code = 115 mg/dL 70-110 A 3342) Lab Interpretation (test code = Abnormal 57390-8) [facility] GLUCOSE(AGE >30DAYS)2021-11-26 12:55:00 Test Item Value Reference Range Interpretation Comments POCT Glu (age>30days) (test code = 115 mg/dL 70-110 A 3342) Lab Interpretation (test code = Abnormal 31181-9) [facility][U] XRAY FEMUR 2 VWS LEFT [id number] 10:25:00Images acquired, not reported on this accession number.[facility]
[2022-01-14 20:33] LABS: Urine Blood 3+ (Negative); Urine Glucose 1+ (Negative); Urine Protein 2+ (Negative)
[2022-01-14 20:51] LABS: Urine Crystals Unidentified Few /HPF (None Seen); Urine Mucus Slight /HPF (None Seen); Urine RBC >50 /HPF (None Seen)
--- NOTE | 2022-01-14 21:17 | RAD REPORT ---
EXAM DESCRIPTION: CTStone Protocol - 01/14/2022 8:57 pm CLINICAL HISTORY: hx of stones, right flank pain COMPARISON: CTSTONE PROTOCOL dated 10/31/2012; CT ABD PELVIS W WO CONTRAST dated 03/25/2012; CTSTONE PRO TOCOL dated 03/19/2012; CT ABDOMEN PELVIS WO CONTRAST dated 04/13/2011 TECHNIQUE: CT of the abdomen and pelvis was performed. All CT scans are performed using dose optimization technique as appropriate and may include automated exposure control or mA/KV adjustment according to patient size. FINDINGS: Lower chest: Small hiatal hernia. Liver: No acute abnormality or suspicious lesions. Biliary: Extrahepatic biliary ductal dilatation. This may be related to the postcholecystectomy state . Cholecystectomy. Stomach: Partial gastrectomy. Duodenum: No significant focal abnormality. Pancreas: No significant abnormality. Spleen: No significant abnormality. Adrenal: Benign right adrenal nodule Kidney/ureter: Mild left-sided hydroureteronephrosis secondary to a 7 mm stone in the left distal ure ter. 5 mm left renal calculus. Retroperitoneum: No retroperitoneal adenopathy. 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 Bowel: No significant focal abnormality. Peritoneum: No ascites or free air. Prior ventral hernia repair. Bladder: Grossly unremarkable. Reproductive: No adnexal masses. Hysterectomy. Bones: No acute fracture. Intramedullary edouard in the left femur. Other: n/a IMPRESSION: Mild left-sided hydroureteronephrosis secondary to a 7 mm stone in the left distal urete r, just proximal to the UVJ.
[2022-01-14] MEDS ORDERED: ACETAMINOPHEN 325 MG TABLET ONE (21:28)
[2022-01-14] MEDS ORDERED: TAMSULOSIN 0.4 MG SR CAP ONE (21:28)
[2022-01-14] MEDS ORDERED: ONDANSETRON 4 MG/2 ML VIAL ONE ×2 (21:29→23:34)
[2022-01-14] MEDS ORDERED: MAGNESIUM SULFATE 1 gm IVPB 1 GM/100 ML BAG IV ONE (21:29)
[2022-01-14] MEDS ORDERED: CEFTRIAXONE 1000 MG/VIAL ONE (21:29)
[2022-01-14] MEDS ORDERED: NA CHLORIDE 0.9% 500 ML ONE (21:29)
[2022-01-14] MEDS ORDERED: MEPERIDINE HCL 25 MG/ML SYR ONE (21:35)
--- NOTE | 2022-01-14 21:36 | EDPHYS ---
Physician Documentation [facility] Name: Amber Ward Age: 66 yrs Sex: Female : 1955 Arrival Date: 01/14/2022 Time: 19:45 Bed 7 Private MD: ED Physician Eladio Salinas HPI: 01/14 20:05 This 66 yrs old Female presents to ER via Ambulatory with complaints of Possible Kidney rn Stone. 20:05 The patient complains of pain in the right mid back. The pain radiates to the abdomen. rn Onset: The symptoms/episode began/occurred today. Modifying factors: The symptoms are alleviated by nothing. the symptoms are aggravated by nothing. Associated signs and symptoms: Pertinent positives: diarrhea, dysuria, nausea, vomiting, Pertinent negatives: fever. Severity of pain: At its worst the pain was moderate in the emergency department the pain is unchanged. The patient has experienced similar episodes in the past. The patient has not recently seen a physician. Pt reports hx of kidney stones, today began with right flank pain, constant, assoc with nausea/vomiting/diarrhea. NO fever. + dysuria. Went to urgent care and given AZO. Got KUB that didn't show a stone. . Historical: - Allergies: 21:30 amlodipine; aa9 21:30 Carbamazepine; aa9 21:30 Lisinopril; aa9 - Home Meds: 20:01 Cymbalta Oral [Active]; kd3 21:30 Acetaminophen-Codeine Oral [Active]; biotin oral [Active]; aa9 - PMHx: 20:01 cholesterol meds; Hyperlipidemia; kd3 - PSHx: 21:30 Cholecystectomy; Hysterectomy; aa9 - Immunization history:: Adult Immunizations up to date. - Social history:: Smoking status: unknown. - Family history:: not pertinent. - Hospitalizations: : No recent hospitalization is reported. ROS: 20:05 Constitutional: Negative for fever, chills, and weight loss, Eyes: Negative for injury, rn pain, redness, and discharge, Neck: Negative for injury, pain, and swelling, Cardiovascular: Negative for chest pain, palpitations, and edema, Respiratory: Negative for shortness of breath, cough, wheezing, and pleuritic chest pain, Abdomen/GI: + right flank and abd pain Back: + right flank pain : + dysuria MS/Extremity: Negative for injury and deformity, Skin: Negative for injury, rash, and discoloration, Neuro: Negative for headache, weakness, numbness, tingling, and seizure. Exam: 20:05 Constitutional: This is a well developed, well nourished patient who is awake, alert, rn appears a little uncomfortable, ambulatory with cane to triage. Head/Face: Normocephalic, atraumatic. Cardiovascular: Regular rate and rhythm. No pulse deficits. Respiratory: No increased work of breathing, no retractions or nasal flaring. Abdomen/GI: soft, mild lower abd tenderness, no distension Back: No spinal tenderness. No costovertebral tenderness. Full range of motion. Skin: Warm, dry MS/ Extremity: Pulses equal, no cyanosis. Neuro: Awake and alert, GCS 15 Vital Signs: 20:04 BP 167 / 77; Pulse 68; Resp 23; Temp 99(O); Pulse Ox 100% ; Weight 99.79 kg; Height 5 kd3 ft. 2 in. (157.48 cm); Pain 10/10; 21:45 BP 167 / 84; Pulse 97; Resp 20 S; Pulse Ox 100% on R/A; aa9 20:04 Body Mass Index 40.24 (99.79 kg, 157.48 cm) kd3 MDM: 19:49 Patient medically screened. rn 21:35 Differential diagnosis: nephrolithiasis, pyelonephritis, UTI. Data reviewed: vital rn signs, nurses notes, lab test result(s), radiologic studies, CT scan, and as a result, I will admit patient. Counseling: I had a detailed discussion with the patient and/or guardian regarding: the historical points, exam findings, and any diagnostic results supporting the discharge/admit diagnosis, lab results, radiology results, the need for further work-up and treatment in the hospital, the need to transfer to another facility, [facility] does not immediately have the required specialist. Response to treatment: the patient's symptoms have mildly improved after treatment, and as a result, I will admit patient. 01/15 00:35 ED course: Consulted with Dr. Muniz, states if WBC normal and afebrile, could send rn her home with abx and return precautions, offered this to patient as she does not want to be transferred, and patient and choose to go home tonight. Will dc home with abx, flomax, zofran, and already has norco at home. . 01/14 20:04 Order name: CBC with Diff; Complete Time: 22:14 rn 01/14 20:04 Order name: CMP; Complete Time: 22:16 rn 01/14 20:04 Order name: Lipase; Complete Time: 22:16 rn 01/14 20:04 Order name: Urine Microscopic Only; Complete Time: 20:53 rn 01/14 20:33 Order name: Urine Dipstick-Ancillary; Complete Time: 20:53 EDMS 01/14 21:01 Order name: Blood Culture Adult (2) rn 01/14 20:04 Order name: CT Stone Protocol; Complete Time: 21:19 rn 01/14 21:01 Order name: Lactate w/ 2H reflex if indic.; Complete Time: 22:14 rn 01/14 21:33 Order name: SARS RAPID; Complete Time: 22:16 rn 01/14 20:04 Order name: IV Saline Lock; Complete Time: 21:30 rn 01/14 20:04 Order name: Labs collected and sent; Complete Time: 21:30 rn 01/14 20:04 Order name: Urine Dipstick-Ancillary (obtain specimen); Complete Time: 22:07 rn Administered Medications: 01/14 21:27 CANCELLED (Patient Refused): Demerol (meperidine) 12.5 mg IVP once rn 21:39 Drug: Magnesium Sulfate 1 grams Route: IVPB; Infused Over: 1 hrs; Site: right [place] [employer] [facility] antecubital; 01/15 01:05 Follow up: IV Status: Completed infusion; IV Intake: 100ml [place] [employer] [facility] 01/14 21:47 Drug: Zofran (Ondansetron) 4 mg Route: IVP; Site: right antecubital; aa9 21:55 Follow up: Response: No adverse reaction [place] [employer] [facility] :47 Drug: NS 0.9% 500 ml Route: IV; Rate: bolus; Site: right antecubital; aa9 01/15 01:05 Follow up: Response: No adverse reaction; IV Status: Completed infusion; IV Intake: aa9 500ml 01/14 21:47 Drug: Rocephin (cefTRIAXone) 1 grams Route: IV; Rate: calculated rate; Site: right aa9 antecubital; 21:55 Follow up: Response: No adverse reaction; IV Status: Completed infusion; IV Intake: [id number] 21:55 Drug: Tylenol 650 mg Route: PO; aa9 22:07 Follow up: Response: No adverse reaction aa9 21:55 Drug: Flomax (tamsulosin) 0.4 mg Route: PO; aa9 22:07 Follow up: Response: No adverse reaction aa9 21:55 Drug: morphine 4 mg Route: IVP; Infused Over: 4 mins; Site: right antecubital; aa9 22:07 Follow up: Response: No adverse reaction aa9 23:46 Drug: Zofran (Ondansetron) 4 mg Route: IVP; Site: right antecubital; aa9 01/15 01:05 Follow up: Response: No adverse reaction aa9 01/14 23:46 Drug: morphine 4 mg Route: IVP; Infused Over: 4 mins; Site: right antecubital; aa9 01/15 01:04 Follow up: Response: No adverse reaction aa9 Disposition Summary: 01/15/22 00:37 Discharge Ordered Location: Home rn Problem: new(01/15/22 00:37) rn Symptoms: have improved(01/15/22 00:37) rn Condition: Stable(01/15/22 00:37) rn Diagnosis - Calculus of ureter rn - UTI/ Urinary tract infection, site not specified(01/15/22 00:37) rn Followup: rn - With: Private Physician - When: As needed - Reason: Recheck today's complaints, Re-evaluation by your physician Discharge Instructions: - Discharge Summary Sheet rn - Kidney Stones rn - Renal Colic rn - Urinary Tract Infection, Adult rn Forms: - Medication Reconciliation Form rn - Thank You Letter rn - Antibiotic internal communications specialist - Prescription Opioid Use rn Prescriptions: - Flomax 0.4 mg Oral capsule - take 1 capsule by ORAL route once daily As needed Stop taking once you have rn passed the kidney stone.; 10 capsule; Refills: 0, Product Selection Permitted - ondansetron 4 mg Oral tablet,disintegrating - place 1 tablet by TRANSLINGUAL route every 6-8 hours As needed; 10 tablet; rn Refills: 0, Product Selection Permitted - cefpodoxime 100 mg Oral Tablet - take 2 tablets by ORAL route every 12 hours for 10 days take with food; 40 rn tablet; Refills: 0, Product Selection Permitted Signatures: Dispatcher [employer] Eladio Milian MD MD rn Doucette, Kyli RN RN kd3 Judy Wallace, RN RN aa9 Corrections: (The following items were deleted from the chart) 01/14 20:04 20:01 Allergies: Morphine; kd3 kd3 21:27 21:09 Demerol (meperidine) 12.5 mg IVP once ordered. rn rn 01/15 00:36 01/14 21:36 rn rn 01/15 00:36 01/14 21:36 [facility] rn rn 01/15 00:36 01/14 21:36 Higher level of care rn rn 01/15 00:36 01/14 21:36 Stable rn rn 01/15 00:36 01/14 21:36 new rn rn 01/15 00:36 01/14 21:36 have improved rn rn 01/15 00:36 01/14 21:36 Hydronephrosis with renal and ureteral calculous obstruction rn rn 01/15 00:36 01/14 21:36 UTI/ Urinary tract infection, site not specified rn rn
--- NOTE | 2022-01-14 21:36 | ER ---
Nurse's Notes [facility] Name: Amber Ward Age: 66 yrs Sex: Female : 1955 Arrival Date: 01/14/2022 Time: 19:45 Bed 7 Private MD: Diagnosis: Calculus of ureter;UTI/ Urinary tract infection, site not specified Presentation: 01/14 20:00 Chief complaint: Patient states: I think it is a kidney stone. i hurt on my right side kd3 and back. I have vomited. I also have not been able to urinate today. 20:00 Method Of Arrival: Ambulatory kd3 20:00 Risk Assessment: Do you want to hurt yourself or someone else? Patient reports no kd3 desire to harm self or others. Onset of symptoms was January 13, 2022. 20:00 Acuity: SHAUNA 3 kd3 20:04 Coronavirus screen: Vaccine status: Patient reports receiving the 2nd dose of the covid kd3 vaccine. Ebola Screen: No symptoms or risks identified at this time. Initial Sepsis Screen: Does the patient meet any 2 criteria? No. Patient's initial sepsis screen is negative. Does the patient have a suspected source of infection? No. Patient's initial sepsis screen is negative. Triage Assessment: 20:01 General: Appears uncomfortable, Behavior is calm, cooperative. Pain: Complains of pain kd3 in right lower quadrant Pain radiates to right low back. Neuro: Level of Consciousness is awake, alert, obeys commands, Oriented to person, place, time, situation. GI: Reports diarrhea. Historical: - Allergies: 21:30 amlodipine; aa9 21:30 Carbamazepine; aa9 21:30 Lisinopril; aa9 - Home Meds: 20:01 Cymbalta Oral [Active]; kd3 21:30 Acetaminophen-Codeine Oral [Active]; biotin oral [Active]; aa9 - PMHx: 20:01 cholesterol meds; Hyperlipidemia; kd3 - PSHx: 21:30 Cholecystectomy; Hysterectomy; aa9 - Immunization history:: Adult Immunizations up to date. - Social history:: Smoking status: unknown. - Family history:: not pertinent. - Hospitalizations: : No recent hospitalization is reported. Screenin:04 Abuse screen: Denies threats or abuse. Denies injuries from another. Nutritional kd3 screening: No deficits noted. Tuberculosis screening: No symptoms or risk factors identified. 20:07 Fall Risk None identified. kd3 Assessment: 20:07 GI: Bowel sounds present X 4 quads. Abdomen is tender to palpation in right lower kd3 quadrant. 22:04 General: Appears comfortable, obese, Behavior is calm, cooperative, appropriate for aa9 age. Pain: Complains of pain in suprapubic area, posterior aspect of right lateral abdomen and posterior aspect of left lateral abdomen. Neuro: Level of Consciousness is awake, alert, obeys commands, Oriented to person, place, time, situation. Cardiovascular: Patient's skin is warm and dry. Respiratory: Airway is patent Respiratory effort is even, unlabored. : Parent/caregiver report the patient having urinary frequency. Derm: Skin is intact, with poor turgor. 23:00 Reassessment: Patient appears in no apparent distress at this time. Patient is alert, aa9 oriented x 3, equal unlabored respirations, skin warm/dry/pink. pt reported "I can pee now,my pain now is manageable.". 01/15 01:05 Reassessment: Patient appears in no apparent distress at this time. Patient is alert, aa9 oriented x 3, equal unlabored respirations, skin warm/dry/pink. pt understand discharge instructions. Vital Signs: 01/14 20:04 BP 167 / 77; Pulse 68; Resp 23; Temp 99(O); Pulse Ox 100% ; Weight 99.79 kg; Height 5 kd3 ft. 2 in. (157.48 cm); Pain 10/10; 21:45 BP 167 / 84; Pulse 97; Resp 20 S; Pulse Ox 100% on R/A; aa9 20:04 Body Mass Index 40.24 (99.79 kg, 157.48 cm) kd3 ED Course: 19:45 Patient arrived in ED. rg4 19:49 Eladio Salinas MD is Attending Physician. rn 20:01 Triage completed. kd3 20:01 Arm band placed on right wrist. kd3 20:07 Patient has correct armband on for positive identification. kd3 20:07 No provider procedures requiring assistance completed. kd3 20:59 CT Stone Protocol In Process Unspecified. EDMS 21:18 Judy Wallace, RN is Primary Nurse. aa9 21:36 Inserted saline lock: 20 gauge in right antecubital area, using aseptic technique. aa9 Blood collected. 21:55 SARS RAPID Sent. aa9 22:07 SARS RAPID Sent. aa9 22: Blood Culture Adult (2) Sent. aa9 22: CMP Sent. aa9 22: Lipase Sent. aa9 01/15 01:14 IV discontinued, intact, bleeding controlled, No redness/swelling at site. Pressure aa9 dressing applied. Administered Medications: 01/14 21:27 CANCELLED (Patient Refused): Demerol (meperidine) 12.5 mg IVP once rn 21:39 Drug: Magnesium Sulfate 1 grams Route: IVPB; Infused Over: 1 hrs; Site: right aa9 antecubital; 01/15 01:05 Follow up: IV Status: Completed infusion; IV Intake: 100ml 9 01/14 21:47 Drug: Zofran (Ondansetron) 4 mg Route: IVP; Site: right antecubital; aa9 21:55 Follow up: Response: No adverse reaction :47 Drug: NS 0.9% 500 ml Route: IV; Rate: bolus; Site: right antecubital; aa9 01/15 01:05 Follow up: Response: No adverse reaction; IV Status: Completed infusion; IV Intake: aa9 500ml 01/14 21:47 Drug: Rocephin (cefTRIAXone) 1 grams Route: IV; Rate: calculated rate; Site: right aa9 antecubital; 21:55 Follow up: Response: No adverse reaction; IV Status: Completed infusion; IV Intake: [id number] 21:55 Drug: Tylenol 650 mg Route: PO; aa9 22:07 Follow up: Response: No adverse reaction aa9 21:55 Drug: Flomax (tamsulosin) 0.4 mg Route: PO; aa9 22:07 Follow up: Response: No adverse reaction aa9 21:55 Drug: morphine 4 mg Route: IVP; Infused Over: 4 mins; Site: right antecubital; aa9 22:07 Follow up: Response: No adverse reaction aa9 23:46 Drug: Zofran (Ondansetron) 4 mg Route: IVP; Site: right antecubital; aa9 01/15 01:05 Follow up: Response: No adverse reaction 9 01/14 23:46 Drug: morphine 4 mg Route: IVP; Infused Over: 4 mins; Site: right antecubital; aa9 01/15 01:04 Follow up: Response: No adverse reaction aa9 Medication: 01/14 20:07 VIS not applicable for this client. kd3 Intake: 21:55 IV: 10ml; Total: 10ml. aa9 01/15 01:05 IV: 100ml; Total: 110ml. aa9 01:05 IV: 500ml; Total: 610ml. aa9 Outcome: 01/14 21:36 ER care complete, transfer ordered by . rn 01/15 00:37 Discharge ordered by . rn 01:06 Discharged to home ambulatory, with family. aa9 01:06 Condition: stable 01:06 Discharge instructions given to patient, family, Instructed on discharge instructions, follow up and referral plans. medication usage, Demonstrated understanding of instructions, follow-up care, medications. 01:14 Patient left the ED. aa9 Signatures: Dispatcher [employer] EDMS Eladio Salinas MD MD rn Garcia, Rubi 4 Marizol Ruiz RN RN kd3 Judy Wallace RN RN aa9 Corrections: (The following items were deleted from the chart) 01/14 20:04 20:01 Allergies: Morphine; kd3 kd3
[2022-01-14] MEDS ORDERED: MORPHINE 4 MG/ML SYR ONE ×2 (21:51→23:34)
[2022-01-14 21:54] LABS: Absolute Lymphocytes (CBC) 1.1 K/uL (0.7-4.9); Hematocrit 37.7 % (36.0-45.0); Lymphocytes % 14.7 % (15.3-44.8); MCV 75.7 fL (80-100); MPV 8.3 fL (7.6-11.3); RBC Red Blood Cell Count 4.98 M/uL (3.86-4.86)
[2022-01-14 22:14] LABS: Albumin 3.9 g/dL (3.4-5.0); Bilirubin Total 0.6 mg/dL (0.2-1.0); Protein, Total 7.6 g/dL (6.4-8.2)
[2022-01-14 22:15] LABS: SARS-CoV-2 Antigen Rapid Res Negative (Negative)
[2022-01-15 02:00] VITALS: TEMP 99; O2SAT 100
[2022-01-15 02:01] VITALS: BP 167/84
== END 2022-01-15 01:14 | disposition home or self-care (01) ==
LOC: ER 19:43
DX: N20.1 Calculus of ureter (principal); N39.0 Urinary tract infection, site not specified; E78.5 Hyperlipidemia, unspecified; Z20.822 Contact with and (suspected) exposure to COVID-19; Z88.8 Allergy status to other drugs, medicaments and biological substances
CPT/HCPCS: 96365; 87040 ×2; 85025; 36415; 83605; 83690; 80053; 76377; 74176; 96375; 99284; 96366; 87811; J3475; J2175; J7040; J2405 ×2; 81003; 81015

== ENCOUNTER 2024-06-29 06:46 | Day surgery (SDC) | payer OTHER ==
[2024-06-28 13:42] LABS: Absolute Eosinophils 0.1 K/uL (0-0.5); Absolute Lymphocytes (CBC) 2.3 K/uL (0.7-4.9); Absolute Monocytes 0.3 K/uL (0.1-1.3); Absolute Neutrophil 3.6 K/uL (1.8-8.0); Basophils % 0.6 % (0-1.3); Eosinophils % 1.6 % (0-4.4); Hematocrit 41.3 % (36.0-45.0); Hemoglobin 13.9 g/dL (12.0-15.0); Lymphocytes % 37.2 % (15.3-44.8); MCH 32.7 pg (27.0-35.0); MCHC 33.7 g/dL (32.0-36.0); MPV 7.9 fL (7.6-11.3); Monocytes % 4.2 % (3.3-12.3); Neutrophils % 56.4 % (41.7-73.7); Platelets 162 thou/uL (152-406); RBC Red Blood Cell Count 4.26 M/uL (3.86-4.86); Red Cell Distribution Width 14.2 % (12.1-15.2)
[2024-06-28 13:55] LABS: PT Prothrombin Time 12.9 SECONDS (10-13.0); PTT, Activated Partial Thromb 37.3 SECONDS (27.2-37.4); Protime INR 1.14
[2024-06-28 14:01] LABS: Anion Gap 7.8 mEq/L (5.0-15.0); Potassium 3.8 mEq/L (3.5-5.1)
[2024-06-29] MEDS ORDERED: NA CHLORIDE 0.9% 500 ML ONE (07:27)
[2024-06-29] MEDS ORDERED: LIDOCAINE 1% MPF 5 ML VIAL ONE (07:57)
[2024-06-29] MEDS ORDERED: propofoL 200 MG/20 ML VIAL IV ONE (07:57)
[2024-06-29 08:36] VITALS: TEMP 98.7
[2024-06-29 08:52] VITALS: BP 133/61; O2SAT 98
--- NOTE | 2024-06-29 11:38 | EKG ---
Test Date: 2024-06-29 Test Time: 08:25:46 Boat Outfitter: ROSA MEASUREMENT RESULTS: Intervals: Rate: 81 IA: 172 QRSD: 78 QT: 418 QTc: 485 [place]: P: 90 IA: 172 QRS: 64 T: 60 INTERPRETIVE STATEMENTS: Normal sinus rhythm Nonspecific T wave abnormality Prolonged QT Abnormal ECG Compared to ECG 06/28/2024 13:14:07 T-wave abnormality now present Prolonged QT interval now present Atrial fibrillation no longer present Electronically Signed On 06-29-24 11:37:46 CDT by Calos Bermeo
--- NOTE | 2024-06-29 11:43 | EKG ---
Test Date: 2024-06-28 Test Time: 13:14:07 Clinical Data Associate: NICKI MEASUREMENT RESULTS: Intervals: Rate: 75 HI: QRSD: 78 QT: 402 QTc: 448 [place]: P: HI: QRS: 46 T: 37 INTERPRETIVE STATEMENTS: Atrial fibrillation Low voltage QRS Abnormal ECG Compared to ECG 04/10/2024 14:50:12 Low QRS voltage now present Electronically Signed On 06-29-24 11:39:50 CDT by Calos Bermeo
--- NOTE | 2024-06-29 12:07 | TEE ---
TRANSESOPHAGEAL ECHOCARDIOGRAM REPORT CARDIOLOGY DEPARTMENT DATE OF STUDY: 06/29/2024 HEIGHT: 5'2" WEIGHT: 191 lbs DIAGNOSIS: ATRIAL FIBRILLATION RESIDENTIAL PLUMBER COMMENTS: DERRICK CARDIAC HISTORY: CATHERIZATION: SURGERY: PROSTHETIC VALVE: PACEMAKER: 2 DIMENSIONAL ASSESSMENT: RIGHT ATRIUM: LEFT ATRIUM: RIGHT VENTRICLE: LEFT VENTRICLE: TRICUSPID VALVE: MITRAL VALVE: PULMONIC VALVE: AORTIC VALVE: PERICARDIAL EFFUSION: AORTIC ROOT: [*] EJECTION FRACTION: LEFT VENTRICULAR WALL MOTION: DOPPLER/COLOR FLOW: COMMENTS: 1. NORMAL LEFT ATRIAL APPENDAGE, NO CLOT 2. MILD MITRAL REGIRGITATION 3. MODERATELY DILATED LEFT ATRIUM TECHNOLOGIST: KATI GANDARA
--- NOTE | 2024-06-29 12:59 | OP ---
Date of Procedure: 06/29/2024 Surgeon: Calos Bermeo Procedure Performed: Synchronized transesophageal echocardiogram cardioversion. Indication For Procedure: Atrial fibrillation. Complications: None. Estimated Blood Loss: None. Sedation: Done by Anesthesia team. Description Of Procedure: After risks, benefits, and alternatives were explained to the patient, pat ient agreed to proceed with procedure and signed informed consent. The patient was brought back to he OR. Time-out was performed. Sedation was administered by Anesthesia Team. The DERRICK probe was ins erted. Images were obtained and the DERRICK probe was out. Cardioversion was done, synchronized with 20 0 joules. The patient was converted back into sinus rhythm. At the end of procedure, the patient wa s moved back to recovery in stable condition. Assessment And Plan: 1. Atrial fibrillation, status post successful transesophageal echocardiogram cardioversion. 2. Plan is to continue sotalol 80 mg p.o. b.i.d. Repeated EKG shows normal QTc and also continue Bev devyn 5 mg p.o. b.i.d. PRATEEK Voice ID: [id number] Report ID: [id number]
== END 2024-06-29 09:00 | disposition home or self-care (01) ==
LOC: CCL 06:46
PROVIDERS: ADMIT Internal Medicine; ATTEND Internal Medicine Interventional Cardiology
DX: I48.91 Unspecified atrial fibrillation (principal)
CPT/HCPCS: 93005 ×2; 93312; 85025; 80048; 36415; 85610; 82947; 85730; 92960; J2704; J2003; J7040; 01922

== ENCOUNTER 2024-11-14 19:01 | Emergency (ER) | payer OTHER ==
--- OUTSIDE RECORDS SUMMARY | 2024-11-14 19:14 | XMS REPORT | Continuity of Care Document ---
Author Name Unknown Address [address] [facility] [address] [place] [address] Organization [facility] [place] Address [address] [facility] [address] [place] [address] Care Team Providers Care Adoption Social Worker Name Role Phone No MD, Pcp Primary Care Physician UnavailSHONDA Darby Attending Clinician Unavailable MILLI ORDAZ Attending Clinician Unavailable Caprice East MD Attending Clinician Therese Morales Attending Clinician [phone] Mehdi Dodson Attending Clinician [phone] CAPRICE EAST Attending Clinician Un available BETSEY ONEAL Attending Clinician Unavailab DANIA Elaine Attending Clinician Unavailab ROGER Sherwood Attending Clinician Unavailable Jose D [employer] DRILL OPERATOR, [place] Attending Clinician [phone] Doctor Unassigned, [place] Attending Clinician Pilar Davis Attending Clinician [phone] PILAR PELAEZ Attending Clinician Unavailable ROME SERRANO Attending Clinician UnavailRome Arauz MD Attending Clinician [phone] Pob, [facility] Attending Clinician UnavailFide Rajan Attending Clinician [phone] MISAEL FLOWERS Attending Clinician MISAEL Torres Attending Clinician Unavailable Chace Christian Attending Clinician [phone] Sonali Brandon MA Attending Clinician Unavailable Patricia Alexander RN Attending Clinician UnavailMILLI Phillips Attending Clinician UnavailCHACE Flores, P.A. Attending Clinician MILLI Dean M.D. Attending Clinician Unavailab CAPRICE Bridges Admitting Clinician Un available CAPRICE EAST Admitting Clinician Un available PILAR PELAEZ Admitting Clinician Unavailable ROME SERRANO Admitting Clinician UnavailRome Arauz MD Admitting Clinician [phone] MISAEL FLOWERS Admitting Clinician Misael Torres MD Admitting Clinician [phone] Payers Payer Name Policy Type Policy Number Effective Date Expirati on Date Source [employer] MED[employer]ARE PPO [id number] 2018 00:00:00 2021 00:00:00 [employer]VANTAGE Medicare [id number] 2023 00:00:00 Problems Condition Name Condition Details Condition Category Status Onset Date Resolution Date Last Treatment Date Treating Clinician Comments Source Status post revision of total knee replacemen t, 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, left Disease Active 06-30 00:00: 00 [facility] 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 Active 05-29 00:00: 00 [facility] Acute pain of left knee Acute pain of left knee Disease Active 05-29 00:00: 00 [facility] 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 Disease Active 2022-02 00:00: 00 [facility] Oral lesion (finding) Oral lesion (finding) Active 12/02/2022 Problem 12/16/2022 FOLLOW UP WITH DENTIST ON 12-09-22 [facility] Problem Active 2022-02 0-11 00:00: 00 2022-12-16 22:38:08 Juanpablo Burger LT KNEE OA, PAINFUL HARDWARE LT KNEE OA, PAINFUL HARDWARE Active 12/02/2022 [facility] Diagnosis Active 2022-02 0-11 00:00: 00 2023-01-12 10:00:00 Juanpablo Burger Status post right knee replacemen t Status post right knee replacemen t Disease Active 09-14 00:00: 00 [facility] RT KNEE OA RT KNEE OA Active 08/13/2022 [facility] Diagnosis Active 08-13 00:00: 00 2022-08-27 14:21:00 Juanpablo Burger Bilateral primary osteoarthr itis of knee Bilateral primary osteoarthr itis of knee Disease Active 08-09 00:00: 00 [facility] Chronic pain of both knees Chronic pain of both knees Disease Active 08-09 00:00: 00 [facility] T84.84XA T84.84XA Active 06/02/2021 [facility] Diagnosis Active 4-11 00:00: 00 2021-06-30 05:47:00 Juanpablo Burger DISPLACED SUPRACONDY LAR FRACTURE WITHOUT DISPLACED SUPRACONDY LAR FRACTURE WITHOUT Active 11/15/2020 [facility] Diagnosis Active 11-15 00:00: 00 2020-11-27 13:13:00 Juanpablo Burger Closed displaced supracondy lar fracture without intracondy lar extension of lower end of left femur with routine healing Closed displaced supracondy lar fracture without intracondy lar extension of lower end of left femur with routine healing Disease Active 11-12 00:00: 00 [facility] 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 Disease Active 11-12 00:00: 00 [facility] S72.462D - DISPL SUPRCNDL FX W INTRCNDL S72.462D - DISPL SUPRCNDL FX W INTRCNDL Active 10/14/2020 [facility] Diagnosis Active 10-14 00:01: 00 2020-10-18 08:38:00 Boomarissa head [place] PAIN DUE TO INTERNAL ORTHOPEDIC PROSTHET PAIN DUE TO INTERNAL ORTHOPEDIC PROSTHET Active 06/05/2020 [facility] Diagnosis Active -14 00:00: 00 2020-06-14 06:28:00 Boomarissa head Tao FEMUR FX,S/P FALL FEMUR FX,S/P FALL Active 04/27/2020 [facility] Diagnosis Active 3-06 00:00: 00 2020-05-07 21:57:00 Boomarissa Burger FALL FALL Active 04/27/2020 [facility] Diagnosis Active 3-06 00:00: 00 2020-04-27 09:09:00 Boomarissa adilene Burger N20.0 - CALCULUS OF KIDNEY N20.0 - CALCULUS OF KIDNEY Active 03/19/2020 [facility] Diagnosis Active - 00:01: 00 2020-03-29 10:36:00 Juanpablo Burger UNSP FRACTURE OF UNSP FEMUR, INIT ENCNTR UNSP FRACTURE OF UNSP FEMUR, INIT ENCNTR Active [facility] Diagnosis Active 2020-05-07 21:57:00 Juanpablo Burger S72.452K - DISPL SUPRCNDL FX W/O INTRCND S72.452K - DISPL SUPRCNDL FX W/O INTRCND Active [facility], [facility] Diagnosis Active 2021-06-17 12:16:00 Juanpablo Burger N39.0 - URINARY TRACT INFECTION, SITE N2 N39.0 - URINARY TRACT INFECTION, SITE N2 Active [facility] Diagnosis Active 2022-04-27 08:45:00 Juanpablo Burger Anemia (disorder) Anemia (disorder) Active Problem 12/16/2022 [facility] Problem Active 2022-12-16 22:38:08 Juanpablo Burger Chronic pain (finding) Chronic pain (finding) Active Problem 12/16/2022 [facility] Problem Active 2022-12-16 22:38:08 Juanpablo Burger Morbid obesity (disorder) Morbid obesity (disorder) Active Problem 12/16/2022 [facility] Problem Active 2022-12-16 22:38:08 Juanpablo Burger 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) Active Problem 12/16/2022 [facility] Problem Active 2022-12-16 22:38:08 Juanpablo Burger Osteoarthr itis (disorder) Osteoarthr itis (disorder) Active Problem 12/16/2022 [facility] Problem Active 2022-12-16 22:38:08 Juanpablo Burger Osteoarthr itis of right knee joint (disorder) Osteoarthr itis of right knee joint (disorder) Active Problem 12/16/2022 [facility] Problem Active 2022-12-16 22:38:08 Juanpablo Burger Patient encounter status (finding) Patient encounter status (finding) Active Problem 12/16/2022 [facility] Problem Active 2022-12-16 22:38:08 Juanpablo Burger Postoperat nelson nausea and vomiting (disorder) Postoperat nelson nausea and vomiting (disorder) Active Problem 12/16/2022 [facility] Problem Active 2022-12-16 22:38:08 Juanpablo Burger Recurrent urinary tract infection (disorder) Recurrent urinary tract infection (disorder) Active Problem 12/16/2022 [facility] Problem Active 2022-12-16 22:38:08 Juanpablo Burger Obese class II (finding) Obese class II (finding) Active Problem 12/16/2022 [facility] Problem Active 2022-12-16 22:38:08 Juanpablo Burger Osteoarthr itis of left knee joint (disorder) Osteoarthr itis of left knee joint (disorder) Active Problem 12/16/2022 [facility] Problem Active 2022-12-16 22:38:08 Juanpablo Burger M17.11 - UNILATERAL PRIMARY OSTEOARTHR I M17.11 - UNILATERAL PRIMARY OSTEOARTHR I Active [facility] Diagnosis Active 2022-08-17 11:02:00 Juanpablo Burger Painful orthopaedi c hardware Painful orthopaedi c hardware [facility]osed displaced supracondy lar fracture of distal end of left femur with intracondy lar extension with routine healing Closed displaced supracondy lar fracture of distal end of left femur with intracondy lar extension with routine healing Problem Active [facility] Burn (disorder) Burn (disorder) Active Problem 12/16/2022 [facility] Problem Active 2022-12-16 22:38:08 Juanpablo Burger Fracture of bone (disorder) Fracture of bone (disorder) Resolved Problem 11/15/2021 [facility] Problem Resolve d 2021-11-15 04:24:34 Juanpablo Burger 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 Problem 11/15/2021 [facility] Problem Resolve d 2021-11-15 04:24:34 Juanpablo Burger Severe obesity (disorder) Severe obesity (disorder) Active Problem 10/20/2020 [facility], [facility] Problem Active 2020-10-20 23:01:36 Juanpablo Burger Crohn's disease (disorder) Crohn's disease (disorder) Active Problem 12/16/2022 [facility], [facility] Problem Active 2022-12-16 22:38:08 Juanpablo Burger Diabetes mellitus (disorder) Diabetes mellitus (disorder) Active Problem 05/21/2022 type 2 [facility] Active 2022-05-21 10:30:30 Juanpablo Burger Gastroesop hageal reflux disease (disorder) Gastroesop hageal reflux disease (disorder) Active Problem 12/16/2022 [facility], [facility] Active 2022-12-16 22:38:08 Juanpablo Burger Hyperchole sterolemia (disorder) Hyperchole sterolemia (disorder) Active Problem 05/21/2022 [facility] Problem Active 2022-05-21 10:30:30 Juanpablo Burger Hyperlipid emia (disorder) Hyperlipid emia (disorder) Active Problem 12/16/2022 [facility] Active 2022-12-16 22:38:08 Juanpablo Burger Hypertensi ve disorder, systemic arterial (disorder) Hypertensi ve disorder, systemic arterial (disorder) Active Problem 12/16/2022 [facility], [facility] Active 2022-12-16 22:38:08 Juanpablo Burger Kidney stone (disorder) Kidney stone (disorder) Active Problem 12/16/2022 [facility], [facility] Burger[facility] Active 2022-12-16 22:38:08 Juanpablo Burger Migraine (disorder) Migraine (disorder) Active Problem 12/16/2022 [facility], [facility] Active 2022-12-16 22:38:08 Juanpablo Burger Osteoporos is (disorder) Osteoporos is (disorder) Active Problem 12/16/2022 [facility] Problem Active 2022-12-16 22:38:08 Juanpablo Burger Diabetes mellitus type 2 (disorder) Diabetes mellitus type 2 (disorder) Active Problem 05/21/2022 [facility], [facility] Burger[facility] Active 2022-05-21 10:30:30 Juanpablo Burger Urinary tract infectious disease (disorder) Urinary tract infectious disease (disorder) Active Problem 12/16/2022 [facility] Problem Active 2022-12-16 22:38:08 Juanpablo Burger Allergies, Adverse Reactions, Alerts Allergy Name Allergy Type Status Severity Reaction(s) Onset Date Inactive Date Treating Clinician Comments Source AMLODIPI NE DRUG INGREDI Active Unknown-Cmnt 2021-02 0-05 00:00: 00 [facility] CARBAMAZ EPINE DRUG INGREDI Active Unknown-Cmnt 2021-02 0-05 00:00: 00 [facility] LISINOPR IL DRUG INGREDI Active Unknown-Cmnt 2021-02 0-05 00:00: 00 [facility] Amlodipi ne Propensi ty to adverse reaction s to drug Active Other - See comments 2021-02 0-05 00:00: 00 Pt states made her weak [facility] Carbamaz epine Propensi ty to adverse reaction s Active Other - See comments 2021-02 0-05 00:00: 00 [facility] Lisinopr il Propensi ty to adverse reaction s Active Other - See comments 2021-02 0-05 00:00: 00 [facility] Amlodipi ne Propensi ty to adverse reaction s Active 6-16 00:00: 00 [facility] Carbamaz epine Propensi ty to adverse reaction s Active 6-16 00:00: 00 [facility] MORPHINE DRUG INGREDI Active Other-Cmnt 2-05 00:00: 00 [facility] morphine DA Active SV CONVULSION 03-13 00:00: 00 [facility] NO KNOWN ALLERGIE S Drug Class Active [facility] AmLODIPi ne Besylate AmLODIPi ne Besylate Active [facility] CarBAMaz epine ER CarBAMaz epine ER Active [facility] adilene Burger lisinopr il lisinopr il Active [facility] adilene [facility] NKFA NKFA Active [place] adilene Burger Social History Social Habit Start Date Stop Date Quantity Comments Source Sexual orientation [facility] ASSERTION Possible [facility] History SDOH Alcohol Std Drinks [facility] History SDOH Alcohol Binge [facility] History SDOH Alcohol Comment [facility] History of Social function 2024-03-29 00:00:00 2024-03-29 00:00:00 [facility] Alcoholic beverage intake 2024-03-29 00:00:00 2024-03-29 00:00:00 Ex-drinker (finding) [facility] Cigarette pack-years 2023-02-04 00:00:00 2023-02-04 00:00:00 [facility] Cigarettes smoked current (pack per day) - Reported 2023-02-04 00:00:00 2023-02-04 00:00:00 [facility] Tobacco use and exposure 2023-02-04 00:00:00 2023-02-04 00:00:00 Smokeless tobacco non-user [facility] Exposure to SARS-CoV-2 (event) 2022-07-26 00:00:00 2022-08-05 13:40:00 Not sure [facility] Alcohol intake 2021-12-11 00:00:00 2021-12-11 00:00:00 Current non-drinker of alcohol (finding) [facility] Tobacco Comment 2021-11-20 00:00:00 2021-11-20 00:00:00 quit in 1978 [facility] Social History 2020-11-22 22:59:01 2020-11-22 22:59:01 [facility] Tao History SDOH Alcohol Frequency 2020-11-12 00:00:00 2020-11-12 00:00:00 1 [facility] Sex 2020-05-06 22:05:41 2020-05-06 22:05:41 Female (finding) [facility] History of tobacco use 1975-08-23 00:00:00 1980-08-22 00:00:00 Cigarette Smoker [facility] Sex Assigned At 1955 00:00:00 1955 00:00:00 [facility] Smoking Status Start Date Stop Date Source Tobacco smoking consumption unknown [facility] Ex-smoker 2023-02-04 00:00:00 2023-02-04 00:00:00 [facility] Medications Ordered Medication Name Filled Medication Name Start Date Stop Date Current Medication? Ordering Clinician Indication Dosage Frequency Signature (SIG) Comments Components Source cefadroxil (Duricef) 500 MG capsule 08-12 00:00: 00 08-27 04:59 :00 No [id number] 500mg Q.5D Take 1 capsule (500 mg total) by mouth in the morning and 1 capsule (500 mg total) in the evening. Do all this for 14 days. [facility] cefadroxil (Duricef) 500 MG capsule 08-03 00:00: 00 08-14 04:59 :00 No [id number] 500mg Q.5D Take 1 capsule (500 mg total) by mouth in the morning and 1 capsule (500 mg total) in the evening. Do all this for 10 days. [facility] celecoxib (CeleBREX) 200 MG capsule 06-21 00:00: 00 07-22 04:59 :00 No [id number] 200mg Q.5D Take 1 capsule (200 mg total) by mouth in the morning and 1 capsule (200 mg total) in the evening. [facility] aspirin 81 MG EC tablet 06-21 00:00: 00 07-13 04:59 :00 No [id number] 81mg Q.5D Take 1 tablet (81 mg total) by mouth in the morning and 1 tablet (81 mg total) in the evening. Do all this for 21 days. [facility] Yuvafem 10 MCG tablet vaginal tablet 02-26 11:38: 40 Yes 1 TABLET VAGINAL TWO TIMES A WEEK 90 DAY(S) [facility] mesalamine (Asacol) 800 MG EC tablet 02-26 11:38: 40 Yes 800mg Q.5D Take 800 mg by mouth in the morning and 800 mg before bedtime. [facility] Trulicity 1.5 MG/0.5ML solution pen-injecto r 02-25 00:00: 00 Yes [facility] Trulicity 1.5 MG/0.5ML solution pen-injecto r 02-25 00:00: 00 Yes [facility] celecoxib (CeleBREX) 200 MG capsule 2022-02-14 00:00: 00 02-26 05:59 :00 No [id number] 200mg Q.5D Take 1 capsule (200 mg total) by mouth in the morning and 1 capsule (200 mg total) in the evening. Do all this for 21 days. [facility] valsartan (Diovan) 40 MG tablet 2022-02 00:00: 00 Yes TAKE 1 TABLET BY MOUTH EVERY DAY. STOP VALSARTAN 80 [facility] penicillin V potassium 500 mg oral tablet 2022-02 17:30: 00 Yes TAKE 1 TABLET BY MOUTH EVERY 6 HOURS UNTIL ALL ARE TAKEN FOR DENTAL INFECTION Juanpablo Burger chlorhexidi ne topical 0.12% liquid 2022-02 17:30: 00 Yes SWISH AND SPIT 15 ML'S TWICE DAILY AFTER BREAKFAST/ BEFORE BEDTIME FOLLOWING BRUSHING AND FLOSSING Juanpablo Burger amoxicillin 500 mg oral capsule 2022-02 17:30: 00 Yes 0 Refill(s) Juanpablo Burger Excedrin Migraine 250 mg-250 mg-65 mg oral tablet 2022-02 15:57: 00 Yes 2 tab, PO, Q6H, PRN for headache, # 50 tab, 0 Refill(s) Juanpablo Burger Tylenol Arthritis Gelcap 650 mg oral tablet, extended release 2022-02 15:57: 00 Yes 1,300 mg = 2 tab, PO, Q8H, 0 Refill(s) Juanpablo Burger acetaminoph en-hydrocod one 325 mg-10 mg oral tablet 2022-02 15:56: 00 Yes 1 tab, PO, Q8H, PRN Pain, # 60 tab, 0 Refill(s) Juanpablo Burger Trulicity Pen 1.5 mg/0.5 mL subcutaneou s solution 2022-02 15:52: 00 Yes QWed, 0 Refill(s) Boomarissa Burger aspirin (Aspirin Low Dose) 81 MG EC tablet 09-14 00:00: 00 04-05 00:00 :00 No [id number] TAKE 1 TABLET BY MOUTH TWICE A DAY [facility] aspirin 81 mg tablet, enteric coated 08-27 16:30: 00 Yes 81 mg, PO, BID, # 30 tab, 0 Refill(s), [facility]acy: [id number], 156.21, cm, 08/17/22 15:31:00 CDT, Height, 96.091, kg, 08/17/22 15:31:00 CDT, Weight Memmarissa Burger What Cheer 10/325 oral tablet 08-27 16:29: 00 Yes 1 tab, PO, Q6H, PRN Pain, X 7 day, # 30 tab, 0 Refill(s), Pharmacy: [id number], 156.21, cm, 08/17/22 15:31:00 CDT, Height, 96.091, kg, 08/17/22 15:31:00 CDT, Weight Memmarissa Burger CeleBREX 200 mg oral capsule 08-27 16:28: 00 Yes 200 mg, PO, BID, 0 Refill(s) Boomarissa Burger Keflex 500 mg oral capsule 08-27 16:28: 00 Yes 500 mg = 1 cap, PO, BID, X 7 day, # 14 cap, 0 Refill(s), Pharmacy: [id number], 156.21, cm, 08/17/22 15:31:00 CDT, Height, 96.091, kg, 08/17/22 15:31:00 CDT, Weight Boomarissa Burger valsartan 40 mg oral tablet 08-17 20:31: 00 Yes 40 mg = 1 tab, PO, Daily, 0 Refill(s) Memmarissa adilene Burger MiraLax 08-17 20:08: 00 Yes 17 gm, PO, Daily, 0 Refill(s) Memmarissa head Tao Yuvafem 10 mcg vaginal tablet 08-17 13:58: 00 Yes Q-Th and F, 0 Refill(s) Juanpablo Burger Tymlos 80 mcg/0.04 mL subcutaneou s solution 08-14 18:27: 00 Yes 80 microgram, SUB-Q, Daily, 0 Refill(s) Juanpablo Burger lactated ringers IV infusion 1,000 mL 2021-02 15:15: 00 Yes 1000mL at 50 mL/hr, 1,000 mL, IV Infusion, CONTINUOUS , Starting on Wed12/10/21 at 1015, Until Discontinu ed, Routine, PACU [facility] ondansetron (ZOFRAN (PF)) injection 4 mg 2021-02 15:05: 04 Yes 4mg 4 mg, Slow IV Push, PRN, 1 dose, Starting on Wed12/10/21 at 1005, Until Discontinu ed, Routine, Nausea and Vomiting (N/V), PACU [facility] neomycin-po lymyxin-dex amethasone (MAXITROL) 3.5 mg/g-10,000 unit/g-0.1 % ophthalmic ointment 2021-02 14:01: 00 12-10 14:06 :01 No PRN, Starting on Wed12/10/21 at 0901, Until Wed12/10/21 at 0906, Routine, Intra-op [facility] sodium chloride (NS) injection 2021-02 14:00: 00 12-10 14:06 :01 No PRN, Starting on Wed12/10/21 at 0900, Until Wed12/10/21 at 0906, Routine, Intra-op [facility] dexamethaso ne (DECADRON PHOSPHATE) injection 2021-02 14:00: 00 12-10 14:06 :01 No PRN, Starting on Wed12/10/21 at 0900, Until Wed12/10/21 at 0906, Routine, Intra-op [facility] ceFAZolin (ANCEF) injection 2021-02 14:00: 00 12-10 14:06 :01 No PRN, Starting on Wed12/10/21 at 0900, Until Wed12/10/21 at 0906, JUSTINE, Intra-op [facility] carbachoL (MIOSTAT) 0.01 % intraocular injection 2021-02 13:59: 00 12-10 14:06 :01 No PRN, Starting on Wed12/10/21 at 0859, Until Wed12/10/21 at 0906, Routine, Intra-op [facility] EPINEPHrine 1:1,000 (1 mg/mL) (ADRENALIN) injection 2021-02 13:47: 00 12-10 14:06 :01 No PRN, Starting on Wed12/10/21 at 0847, Until Wed12/10/21 at 09, Routine, Intra-op [facility] chondroitin sulf-sod hyaluronate (DUOVISC VISCO ELASTIC) intraocular injection 2021-02 13:47: 00 12-10 14:06 :01 No PRN, Starting on Wed12/10/21 at 0847, Until Wed12/10/21 at 09, Routine, Intra-op [facility] balanced salt irrig soln comb1 (BSS PLUS) ophthalmic solution 500 mL bag 2021-02 13:47: 00 12-10 14:06 :01 No PRN, Starting on Wed12/10/21 at 0847, Until Wed12/10/21 at 0906, Routine, Intra-op [facility] water for irrigation irrigation solution 2021-02 13:42: 00 12-10 14:06 :01 No PRN, Starting on Wed12/10/21 at 0842, Until Wed12/10/21 at 0906, Routine, Intra-op [facility] Hyaluronida se, Human Recomb. (HYLENEX) injection 2021-02 13:37: 00 12-10 14:06 :01 No PRN, Starting on Wed12/10/21 at 0837, Until Wed12/10/21 at 0906, Routine, Intra-op [facility] eye block syringe 11 mL 2021-02 13:37: 00 12-10 14:06 :01 No PRN, Starting on Wed12/10/21 at 0837, Until Wed12/10/21 at 0906, Intra-op [facility] cyclopent 1%-tropic 1%-phenyl 2.5%-ketor 0.5% (MYDRIATIC #5) ophthalmic solution syringe 0.5 mL 2021-02 12:45: 00 12-10 12:48 :00 No .5mL 0.5 mL, Right Eye, ONCE, 1 dose, On Wed12/10/21 at 0745, Routine, DSU Pre-op [facility] lactated ringers IV infusion 1,000 mL 2021-02 12:45: 00 12-10 13:00 :00 No 1000mL at 42 mL/hr, 1,000 mL, IV Infusion, ONCE, 1 dose, On Wed12/10/21 at 0745, Routine, DSU Pre-op [facility] rosuvastati n 10 mg tablet 2021-02 10:15: 36 Yes 10mg Take 10 mg by mouth at bedtime. [facility] metFORMIN 500 mg tablet 2021-02 10:15: 36 Yes 500mg Take 500 mg by mouth 2 (two) times daily with meals. [facility] DULoxetine 30 mg capsule 2021-02 10:15: 36 Yes 30mg Take 30 mg by mouth in the morning. Takes in evening [facility] HYDROcodone -acetaminop hen 7.5-325 mg per tablet 2021-02 10:15: 36 Yes 1{tbl} Take 1 tablet by mouth every 6 (six) hours as needed. [facility] sodium chloride (NS) injection 2021-02 14:36: 00 11-26 15:06 :05 No PRN, Starting on Wed11/26/21 at 0936, Until Wed11/26/21 at 1006, Routine, Intra-op [facility] neomycin-po lymyxin-dex amethasone (MAXITROL) 3.5 mg/g-10,000 unit/g-0.1 % ophthalmic ointment 2021-02 0-05 14:36: 00 11-26 15:06 :05 No PRN, Starting on Wed11/26/21 at 0936, Until Wed11/26/21 at 1006, Routine, Intra-op [facility] dexamethaso ne (DECADRON PHOSPHATE) injection 2021-02 0-05 14:36: 00 11-26 15:06 :05 No PRN, Starting on Wed11/26/21 at 0936, Until Wed11/26/21 at 1006, Routine, Intra-op [facility] ceFAZolin (ANCEF) injection 2021-02 0-05 14:36: 00 11-26 15:06 :05 No PRN, Starting on Wed11/26/21 at 0936, Until Wed11/26/21 at 1006, JUSTINE, Intra-op [facility] carbachoL (MIOSTAT) 0.01 % intraocular injection 2021-02 0-05 14:35: 00 11-26 15:06 :05 No PRN, Starting on Wed11/26/21 at 0935, Until Wed11/26/21 at 1006, Routine, [facility]-op [facility] chondroitin sulf-sod hyaluronate (DUOVISC VISCO ELASTIC) intraocular injection 2021-02 0-05 14:26: 00 11-26 15:06 :05 No PRN, Starting on Wed11/26/21 at 0926, Until Wed11/26/21 at 1006, Routine, [facility]-op [facility] EPINEPHrine 1:1,000 (1 mg/mL) (ADRENALIN) injection 2021-02 0-05 14:25: 00 11-26 15:06 :05 No PRN, Starting on Wed11/26/21 at 0925, Until Wed11/26/21 at 1006, Routine, Intra-op [facility] balanced salt irrig soln comb1 (BSS PLUS) ophthalmic solution 500 mL bag 2021-02 0-05 14:25: 00 11-26 15:06 :05 No PRN, Starting on Wed11/26/21 at 0925, Until Wed11/26/21 at 1006, Routine, Intra-op [facility] water for irrigation irrigation solution 2021-02 14:20: 00 11-26 15:06 :05 No PRN, Starting on Wed11/26/21 at 0920, Until Wed11/26/21 at 1006, Routine, Intra-op [facility] Hyaluronida se, Human Recomb. (HYLENEX) injection 2021-02 14:15: 00 11-26 15:06 :05 No PRN, Starting on Wed11/26/21 at 0915, Until Wed11/26/21 at 1006, Routine, Intra-op [facility] eye block syringe 11 mL 2021-02 14:15: 00 11-26 15:06 :05 No PRN, Starting on Wed11/26/21 at 0915, Until Wed11/26/21 at 1006, Intra-op [facility] HYDROcodone -acetaminop hen 5-325 mg tablet 2021-02 12:56: 47 Yes 1{tbl} Take 1 tablet by mouth every 6 (six) hours as needed. [facility] rosuvastati n 10 mg tablet 2021-02 12:56: 47 Yes 10mg Take 10 mg by mouth at bedtime. [facility] metFORMIN 500 mg tablet 2021-02 12:56: 47 Yes 500mg Take 500 mg by mouth 2 (two) times daily with meals. [facility] DULoxetine 30 mg capsule 2021-02 12:56: 47 Yes 30mg Take 30 mg by mouth daily. [facility] cyclopent 1%-tropic 1%-phenyl 2.5%-ketor 0.5% (MYDRIATIC #5) ophthalmic solution syringe 0.5 mL 2021-02 12:30: 00 11-26 13:49 :00 No .5mL 0.5 mL, Left Eye, ONCE, 1 dose, On Wed11/26/21 at 0730, Routine, DSU Pre-op [facility] lactated ringers IV infusion 1,000 mL 2021-02 12:30: 00 11-26 13:49 :00 No 1000mL at 42 mL/hr, 1,000 mL, IV Infusion, ONCE, 1 dose, On Wed11/26/21 at 0730, Routine, DSU Pre-op [facility] HYDROcodone -acetaminop hen 5-325 mg tablet 11-20 17:16: 40 Yes 1{tbl} Take 1 tablet by mouth every 6 (six) hours as needed. [facility] rosuvastati n 10 mg tablet 11-20 17:14: 12 Yes 10mg Take 10 mg by mouth at bedtime. [facility] metFORMIN 500 mg tablet 11-20 17:14: 12 Yes 500mg Take 500 mg by mouth 2 (two) times daily with meals. [facility] DULoxetine 30 mg capsule 11-20 17:14: 12 Yes 30mg Take 30 mg by mouth daily. [facility] risedronate 150 mg tablet 10-16 00:00: 00 Yes 1{tbl} Take 1 tablet by mouth once every month. [facility] sugammadex (ANES) 07-01 16:50: 00 No Route: IV, Drug form: SOLN, ONCE, Stop date: 07/01/21 11:50:00 CDT Juanpablo Burger gabapentin 300 mg oral capsule 06-30 19:10: 00 Yes 300 mg = 1 cap, PO, TID, # 90 cap, 0 Refill(s), Pharmacy: [id number], 160.02, cm, 06/30/21 6:02:00 CDT, Height, 100.5, kg, 06/30/21 6:02:00 CDT, Weight Juanpablo Burger acetaminoph en 500 mg oral tablet. 06-30 19:09: 00 Yes 500 mg = 1 tab, PO, Q4-6H, PRN Pain, X 30 day, # 60 tab, 0 Refill(s), Pharmacy: [facility] #[id number], 160.02, cm, 06/30/21 6:02:00 CDT, Height, 100.5, kg, 06/30/21 6:02:00 CDT, Weight Juanpablo Burger acetaminoph en 500 mg oral tablet. 06-30 19:08: 00 No 500 mg = 1 tab, PO, Q4-6H, PRN Pain, X 30 day, # 60 tab, 0 Refill(s) Juanpablo Burger gabapentin 300 mg oral capsule 06-30 19:08: 00 No 300 mg = 1 cap, PO, TID, # 90 cap, 0 Refill(s) Memmarissa Burger ondansetron (ANES) 06-30 14:36: 00 No Route: IV, Drug form: INJ, ONCE, Stop date: 06/30/21 9:36:00 CDT Memmarissa Burger ketOROLAC (ANES) 06-30 14:31: 00 No IV, ONCE Juanpablo Burger famotidine (ANES) 06-30 13:35: 00 No Route: IV, Drug form: INJ, ONCE, Stop date: 06/30/21 8:35:00 CDT Memmarissa Burger dexamethaso ne (ANES) 06-30 13:30: 00 No Route: IV, Drug form: INJ, ONCE, Stop date: 06/30/21 8:30:00 CDT Memmarissa Burger lidocaine (ANES) 06-30 13:20: 00 No Route: IV, Drug form: INJ, ONCE, Stop date: 06/30/21 8:20:00 CDT Memmarissa Burger propofol (ANES) 06-30 13:20: 00 No Route: IV, Drug form: INJ, ONCE, Stop date: 06/30/21 8:20:00 CDT Memmarissa Burger rocuronium (ANES) 06-30 13:20: 00 No Route: IV, Drug form: INJ, ONCE, Stop date: 06/30/21 8:20:00 CDT Memmarissa Hardyann fentaNYL (ANES) 06-30 13:20: 00 No Route: IV, Drug form: INJ, ONCE, Stop date: 06/30/21 8:20:00 CDT Juanpablo Burger ceFAZolin (ANES) 06-30 13:20: 00 No Route: IV, Drug form: INJ, ONCE, Stop date: 06/30/21 8:20:00 CDT Juanpablo ANDRADE oxyCODONE 5 mg immediate release tablet 06-30 13:07: 00 No Notes: (Same as: Roxicodone ) Juanpablo Burger LUIS ANGELIveth HYDROmorpho ne 06-30 13:07: 00 No Notes: Same as Dilaudid Juanpablo adilene Tao ANEIveth flumazenil 06-30 13:07: 00 No Notes: (Same as: Romazicon) Juanpablo Hardynimisha PLASENCIAIveth naloxone 06-30 13:07: 00 No Notes: Same as Narcan Juanpablo adilene [place] ANEIveth ondansetron 06-30 13:07: 00 No Notes: (Same as: Zofran) MEDICATION WASTE Product Size: 4 mg Product Wasted: ___ mg Juanpablo adilene [place] ANEIveth promethazin e + Sodium Chloride 0.9% IV 50 mL 06-30 13:07: 00 No Notes: Do not give IV push. (Same as: Phenergan) Juanpablo aHrdyann Lactated Ringers Injection IV (ANES) 1000 mL 06-30 12:27: 00 No Route: IV, Total Volume: 1,000, Start date: 06/30/21 7:27:00 CDT, Stop date: 06/30/21 8:27:00 CDT Juanpablo adilene Tao Isolyte S PH 7.4 1,000 mL 06-30 10:52: 00 No Notes: (Same as: Isolyte S PH7.4, Normosol-R PH 7.4, Plasma-Lyt e A ) Juanpablo adilene Burger acetaminoph en 06-30 10:52: 00 No Notes: Max acetaminop hen 4000 mg/day (4 gm/day). (Same as: Tylenol Extra Strength) Juanpablo Burger risedronate 150 mg oral tablet 06-27 13:17: 00 Yes 150 mg = 1 tab, PO, qMonth, # 3 tab, 3 Refill(s) Juanpablo Burger What Cheer 10/325 oral tablet 06-27 13:17: 00 Yes 1-2 tab, PO, Q4-6H, PRN Pain, # 30 tab, 0 Refill(s) Juanpablo Burger ergocalcife rol (Vitamin D2) 1.25 MG (83770 UT) capsule 4-25 00:00: 00 10-14 00:00 :00 No [id number] TAKE 1 CAPSULE (50,000 UNITS TOTAL) BY MOUTH TWO TIMES A WEEK [facility] HYDROcodone -acetaminop hen (Hycet) 10-300 MG/15ML solution -13 00:00: 00 Yes [facility] tiZANidine (Zanaflex) 4 MG capsule 2-14 00:00: 00 10-14 00:00 :00 No [id number] 4mg QD TAKE 1 CAPSULE (4 MG TOTAL) BY MOUTH AT NIGHT IF NEEDED FOR MUSCLE SPASMS. [facility] ergocalcife rol (Drisdol) 1.25 MG (36730 UT) capsule 1-10 00:00: 00 05-27 04:59 :00 No [id number] 54396Q Take 1 capsule (50,000 Units total) by mouth 2 (two) times a week. [facility] tiZANidine (Zanaflex) 4 MG capsule 2020-02 00:00: 00 02-13 05:59 :00 No [id number] 4mg QD Take 1 capsule (4 mg total) by mouth at night if needed for muscle spasms. [facility] naloxone (Narcan) 2 MG/2ML injection 2020-02- 00:00: 00 10-14 00:00 :00 No [id number] .4mg Administer 0.4 mL (0.4 mg total) into affected nostril(s) if needed for opioid reversal. May repeat every 2-3 minutes as needed until medical assistance available. [facility] tiZANidine (Zanaflex) 4 MG capsule 2020-02- 00:00: 00 01-14 05:59 :00 No [id number] 4mg QD TAKE 1 CAPSULE (4 MG TOTAL) BY MOUTH AT NIGHT IF NEEDED FOR MUSCLE SPASMS. [facility] tiZANidine (Zanaflex) 4 MG capsule 2020-02 00:00: 00 12-17 04:59 :00 No [id number] 4mg QD TAKE 1 CAPSULE (4 MG TOTAL) BY MOUTH AT NIGHT IF NEEDED FOR MUSCLE SPASMS. [facility] acetaminoph en-codeine (Tylenol w/ Codeine #3) 300-30 MG tablet 2020-02 00:00: 00 12-18 04:59 :00 No [id number] 1{tbl} Q6H Take 1 tablet by mouth every 6 (six) hours if needed for severe pain for up to 8 days. [facility] enoxaparin 40 mg/0.4 mL subcutaneou s solution 2020-02 18:01: 00 Yes 40 mg = 0.4 mL, SUB-Q, [id number], X 19 day, # 15 mL, 0 Refill(s), Pharmacy: [id number], 156.21, cm, 11/22/20 18:08:00 CDT, Height, 100, kg, 11/22/20 18:08:00 CDT, Weight Juanpablo Burger tizanidine 2 mg oral tablet 2020-02 17:56: 00 Yes 2 mg = 1 tab, PO, Q8H, PRN Muscle Spasms, # 15 tab, 0 Refill(s), Pharmacy: [id number], 156.21, cm, 11/22/20 18:08:00 CDT, Height, 100, kg, 11/22/20 18:08:00 CDT, Weight Juanpablo Burger Oxycodone Hydrochlori de 5 MG Oral Tablet 2020-02 16:30: 00 Yes 5 mg = 1 tab, PO, Q4H, PRN Pain Score 7-10, X 3 day, # 15 tab, 0 Refill(s), Pharmacy: [id number], 156.21, cm, 11/22/20 18:08:00 CDT, Height, 100, kg, 11/22/20 18:08:00 CDT, Weight Memoria l Tao tizanidine 4 mg oral capsule 2020-02 16:30: 00 No 4 mg = 1 cap, PO, Q8H, PRN for muscle spasms, # 15 cap, 0 Refill(s), Pharmacy: [id number], 156.21, cm, 11/22/20 18:08:00 CDT, Height, 100, kg, 11/22/20 18:08:00 CDT, Weight Memoria l Tao acetaminoph en 500 mg oral tablet. 2020-02 16:30: 00 Yes 1,000 mg = 2 tab, PO, Q8H-06, X 5 day, # 30 tab, 0 Refill(s), Pharmacy: [id number], 156.21, cm, 11/22/20 18:08:00 CDT, Height, 100, kg, 11/22/20 18:08:00 CDT, Weight Memoria l Tao celecoxib 200 mg oral capsule 2020-02 16:30: 00 Yes 200 mg = 1 cap, PO, Q12H, # 10 cap, 0 Refill(s), Pharmacy: [id number], 156.21, cm, 11/22/20 18:08:00 CDT, Height, 100, kg, 11/22/20 18:08:00 CDT, Weight Memoria l Tao gabapentin 100 MG Oral Capsule 2020-02 16:30: 00 Yes 100 mg = 1 cap, PO, Q8H-06, # 21 cap, 0 Refill(s), Pharmacy: [id number], 156.21, cm, 11/22/20 18:08:00 CDT, Height, 100, kg, 11/22/20 18:08:00 CDT, Weight Memoria l Tao Lidocaine 0.04 MG/MG Medicated Patch 2020-02 16:30: 00 Yes 1 patch, TOP, Q24H, X 5 day, # 5 patch, 0 Refill(s), Pharmacy: [id number], 156.21, cm, 11/22/20 18:08:00 CDT, Height, 100, kg, 11/22/20 18:08:00 CDT, Weight Juanpablo Burger Acetaminoph en 2020-02 19:00: 00 No Notes: Max acetaminop hen 4000 mg/day (4 gm/day). (Same as: Tylenol Extra Strength) Juanpablo Burger gabapentin 2020-02 19:00: 00 No Notes: (Same as: Neurontin) Juanpablo Burger Dextrose 50% Syringe (D50W) 2020-02 12:37: 00 No 12.5 gm, 25 mL, Route: IVP, Drug Form: INJ, Dosing Weight 100, kg, PRN, PRN Blood Glucose Results, Start date: 11/24/20 7:37:00 CDT, Duration: 30 day, Stop date: 12/24/20 7:36:00 CDT, 0 Juanpablo Burger Glucagon 2020-02 12:37: 00 No 1 mg, Route: IM, Drug form: PDR/INJ, PRN, Dosing Weight 100, kg, PRN Blood Glucose Results, Start date: 11/24/20 7:37:00 CDT, Duration: 30 day, Stop date: 12/24/20 7:36:00 CDT, 0 Juanpablo uBrger Insulin Lispro 2020-02 12:37: 00 No Notes: (Same as: Humalog) Roll in palms of hands gently; Do not shake vigorously . WASTE: F/P - Black; E - Municipal Trash Bin Stable for 28 days at room temperatur e. Expires in days from ____Date Juanpablo Burger rosuvastati n 2020-02 02:00: 00 No Notes: (Same As: Crestor) Juanpablo Burger duloxetine 2020-02 22:00: 00 No Notes: (Same as: Cymbalta) (Do Not Crush) Juanpablo Burger Protonix 2020-02 21:30: 00 No Notes: Tablet should not be chewed or crushed. (Same as: Protonix) Juanpablo Burger Simethicone 2020-02 16:34: 00 No Notes: (Same as: Mylicon) Juanpablo Burger mesalamine 800 MG Enteric Coated Tablet 2020-02 14:00: 00 No Notes: (Same as: Asacol HD) (Do not crush) Juanpablo Burger Omeprazole 2020-02 14:00: 00 No 40 mg, 1 cap, Route: PO, Drug form: DRC, Daily, Dosing Weight 100, kg, Start date: 11/23/20 9:00:00 CDT, Duration: 30 day, Stop date: 12/22/20 9:00:00 CDT Juanpablo Burger valsartan 2020-02 14:00: 00 No Notes: Same as Diovan Juanpablo Burger POLYETHYLEN E GLYCOL 3350 2020-02 14:00: 00 No Notes: Dissolve in 8 oz of water or juice. (Same as: Miralax) Juanpablo Burger Docusate Sodium 50 MG / sennosides, RESIDENTIAL 8.6 MG Oral Tablet 2020-02 14:00: 00 No Notes: (Same as Senokot-S) Equiv. to Perla-Colac e. Juanpablo Burger Docusate 2020-02 14:00: 00 No Notes: (Same as: Colace) (Do Not Crush) Juanpablo Burger remove patch 2020-02 13:00: 00 No Notes: Remove patch 12 hours after applicatio n each day. Juanpablo Burger gabapentin 300 MG Oral Capsule 2020-02 05:00: 00 No Notes: (Same as: Neurontin) Juanpablo uBrger Celebrex 2020-02 02:00: 00 No Notes: NSAID. Please check indication . Not for seizure. (Same As: CeleBREX) Juanpablo Burger sennosides, RESIDENTIAL 2020-02 02:00: 00 No Notes: (Same as: Senokot) Juanpablo Burger Ancef 2020-02 01:00: 00 No Notes: (Same as Ancef) Juanpablo Burger Lidocaine 0.04 MG/MG Medicated Patch 2020-02 00:00: 00 No Notes: Apply only once for up to 12 hours in a 24-hour period (12 hours on and 12 hours off). (Same as: Aspercreme Lidocaine Patch) "Remove old patch before applicatio n of new patch" Juanpablo Burger Acetaminoph en 2020-02 00:00: 00 No Notes: Max acetaminop hen 4000 mg/day (4 gm/day). (Same as: Tylenol Extra Strength) Juanpablo adilene [place] gabapentin 2020-02 00:00: 00 No Notes: (Same as: Neurontin) Juanpablo Hardyann Enoxaparin 2020-02 00:00: 00 No Notes: (Same as: Lovenox) Juanpablo Burger Dextrose 50% Syringe (D50W) 2020-02 23:29: 00 No 12.5 gm, 25 mL, Route: IVP, Drug Form: INJ, Dosing Weight 100, kg, PRN, PRN Blood Glucose Results, Start date: 11/22/20 18:29:00 CDT, Duration: 30 day, Stop date: 12/22/20 18:28:00 CDT, 0 Juanpablo Hardyann Glucagon 2020-02 23:29: 00 No 1 mg, Route: IM, Drug form: PDR/INJ, PRN, Dosing Weight 100, kg, PRN Blood Glucose Results, Start date: 11/22/20 18:29:00 CDT, Duration: 30 day, Stop date: 12/22/20 18:28:00 CDT, 0 Juanpablo adilene Burger Insulin Lispro 2020-02 23:29: 00 No Notes: (Same as: Humalog) Roll in palms of hands gently; Do not shake vigorously . WASTE: F/P - Black; E - Municipal Trash Bin Stable for 28 days at room temperatur e. Expires in days from ____Date Juanpablo Burger Oxycodone Hydrochlori de 1 MG/ML Oral Solution 2020-02 23:28: 00 No Notes: (Same as:'Roxico done) To be drawn up in 3 mL syr Juanpablo Burger Bisacodyl 2020-02 23:28: 00 No Notes: (Same As: Dulcolax, Bisco-Lax) Juanpablo Burger tizanidine 2020-02 23:28: 00 No Notes: (Same As: Zanaflex) Juanpablo Burger Melatonin 2020-02 23:28: 00 No Notes: (Same as: Melatonin) Juanpablo Burger Dextrose 50% Syringe (D50W) 2020-02 23:25: 00 No 12.5 gm, 25 mL, Route: IVP, Drug Form: INJ, Dosing Weight 100, kg, PRN, PRN Blood Glucose Results, Start date: 11/22/20 18:25:00 CDT, Duration: 30 day, Stop date: 12/22/20 18:24:00 CDT, 0 Juanpablo Burger Glucagon 2020-02 23:25: 00 No 1 mg, Route: IM, Drug form: PDR/INJ, PRN, Dosing Weight 100, kg, PRN Blood Glucose Results, Start date: 11/22/20 18:25:00 CDT, Duration: 30 day, Stop date: 12/22/20 18:24:00 CDT, 0 Juanpablo Burger Bisacodyl 2020-02 23:25: 00 No Notes: (Same As: Dulcolax, Bisco-Lax) Juanpablo Burger Ondansetron 2020-02 23:25: 00 No Notes: (Same as: Zofran) MEDICATION WASTE Product Size: 4 mg Product Wasted: ___ mg Juanpablo Burger Melatonin 2020-02 23:25: 00 No 3 mg, Route: PO, Bedtime, Dosing Weight 100, kg, PRN Insomnia, Start date: 11/22/20 18:25:00 CDT, Duration: 30 day, Stop date: 12/22/20 18:24:00 CDT Juanpablo Burger Robitussin- DM 2020-02 23:25: 00 No Notes: (dextromet horphan-gu aifenesin 10-100mg/5 ml 10 ml oral SOLN ud) (Same as: Robitussin DM) Boomarissa Hardyann Lubricant Eye Drops ophthalmic solution 2020-02 23:25: 00 No Notes: (Same as: Aquasite) Juanpablo Burger Nasal Saline 0.65% solution 2020-02 23:25: 00 No Notes: (Same as: [place]dee, Deep Sea Nasal [place]). Juanpablo Burger Benadryl Maximum Strength 2% topical cream 2020-02 23:25: 00 No 1 appl, Route: TOP, QID, Drug form: CRM, PRN as needed for itching, Start date: 11/22/20 18:25:00 CDT, Duration: 30 day, Stop date: 12/22/20 18:24:00 CDT, 0 Juanpablo Burger Tums 2020-02 23:25: 00 No Notes: (Same As: Tums) Calcium Carbonate 500 mg = 200 mg elemental calcium Dose = mg calcium carbonate ( mg elemental calcium) Juanpablo Burger Benzocaine 15 MG / Menthol 3.6 MG Lozenge [Cepacol Sore Throat Pain Relief 15/3.6] 2020-02 23:25: 00 No Notes: Cepacol lozenges Dispense 1 box = 16 lozenges (Same As: Cepacol Lozenges) Juanpablo Burger Fluticasone propionate 0.05 MG/ACTUAT Metered Dose Nasal [place] [Flonase] 2020-02 23:25: 00 No Notes: (Same as: Flonase) Juanpablo Burger Calmoseptin e topical ointment 2020-02 23:25: 00 No Notes: (Same as: Calmosepti ne) Juanpablo Burger Cetirizine 2020-02 23:25: 00 No Notes: (Same As: Zyrtec) Juanpablo Burger Blistex topical ointment 2020-02 23:25: 00 No Notes: Same as: Blistex Juanpablo Burger Aquaphor 2020-02 23:25: 00 No 1 appl, Route: TOP, Q4H, Drug form: OINT, PRN as needed for dry skin, Start date: 11/22/20 18:25:00 CDT, Duration: 30 day, Stop date: 12/22/20 18:24:00 CDT, 0 Juanpablo Burger Acetaminoph en 2020-02 23:00: 00 No Notes: Max acetaminop hen 4000 mg/day (4 gm/day). (Same as: Tylenol Extra Strength) Juanpablo Burger Tramadol 2020-02 22:40: 00 No Notes: Not to exceed 400mg/day. (Same As: Ultram) Juanpablo Burger Methocarbam ol 2020-02 17:32: 00 No Notes: (Same as:Robaxin ) Juanpablo Burger Fentanyl 2020-02 17:30: 00 No 25 microgram, Route: IVP, Q5Min, Dosing Weight 99.4, kg, PRN Pain Score 7-10, Priority: Routine, Start date: 11/22/20 12:30:00 CDT, Duration: 4 doses or times, Stop date: Limited # of times Juanpablo Burger sugammadex (ANES) 2020-02 16:45: 00 No Route: IV, Drug form: SOLN, ONCE, Stop date: 11/22/20 11:45:00 CDT Juanpablo Burger ondansetron (ANES) 2020-02 16:40: 00 No Route: IV, Drug form: INJ, ONCE, Stop date: 11/22/20 11:40:00 CDT Juanpablo Burger metoprolol (ANES) 2020-02 0 14:07: 00 No Route: IV, Drug form: INJ, ONCE, Stop date: 11/22/20 9:07:00 CDT Juanpablo Burger ketAMINE (ANES) 2020-02 0 14:02: 00 No Route: IV, Drug form: INJ, ONCE, Stop date: 11/22/20 9:02:00 CDT Juanpablo Burger calcium chloride (ANES) 2020-02 0 14:02: 00 No Route: IV, Drug form: INJ, ONCE, Stop date: 11/22/20 9:02:00 CDT Boomarissa Burger lidocaine (ANES) 2020-02 0 13:57: 00 No Route: IV, Drug form: INJ, ONCE, Stop date: 11/22/20 8:57:00 CDT Memmarissa Burger propofol (BANNER) 2020-02 0 13:57: 00 No Route: IV, Drug form: INJ, ONCE, Stop date: 11/22/20 8:57:00 CDT Memoria adilene Burger rocuronium (BANNER) 2020-02 0 13:57: 00 No Route: IV, Drug form: INJ, ONCE, Stop date: 11/22/20 8:57:00 CDT Memmarissa Burger ceFAZolin (BANNER) 2020-02 0 13:57: 00 No Route: IV, Drug form: INJ, ONCE, Stop date: 11/22/20 8:57:00 CDT Memmarissa Burger tranexamic acid (BANNER) 2020-02 0 13:57: 00 No Route: IV, Drug form: INJ, ONCE, Stop date: 11/22/20 8:57:00 CDT Memmarissa Burger hydromorpho ne (BANNER) 2020-02 0 13:57: 00 No Route: IV, Drug form: INJ, ONCE, Stop date: 11/22/20 8:57:00 CDT Memoria adilene Burger midazolam (BANNER) 2020-02 0 13:52: 00 No Route: IV, Drug form: SOLN, ONCE, Stop date: 11/22/20 8:52:00 CDT Memmarissa Burger dexamethaso ne (BANNER) 2020-02 0 13:47: 00 No Route: IV, Drug form: INJ, ONCE, Stop date: 11/22/20 8:47:00 CDT Memmarissa Burger Hydralazine 2020-02 0 13:32: 00 No Notes: (Same as: Apresoline ) Push over 5 minutes Juanpablo Burger Metoprolol 2020-02 13:32: 00 No 1 mg, 1 mL, Route: IVP, Drug form: INJ, Q5Min, Dosing Weight 99.4, kg, PRN Other -See Comment, Start date: 11/22/20 8:32:00 CDT, Duration: 5 doses or times, Stop date: Limited # of times, 0 Memmarissa head Tao Oxycodone Hydrochlori de 5 MG Oral Tablet 2020-02 13:32: 00 No Notes: (Same as: Roxicodone ) Juanpablo Burger Hydromorpho ne 2020-02 13:32: 00 No Notes: Same as Dilaudid Juanpablo Burger Flumazenil 2020-02 13:32: 00 No Notes: (Same as: Romazicon) Juanpablo adilene [place] Naloxone 2020-02 13:32: 00 No Notes: Same as Narcan Memmarissa Burger Ondansetron 2020-02 13:32: 00 No 4 mg, Route: IVP, ONCE, Dosing Weight 99.4, kg, PRN Nausea & Vomiting, Start date: 11/22/20 8:32:00 CDT Boomarissa adilene Tao Insulin regular 2020-02 13:32: 00 No Notes: (Same as: Humulin R) Roll in palms of hands gently; Do not shake vigorously . WASTE: F/P - Black; E - Municipal Trash Bin Stable for 31 days at room temperatur e Expires in days from ____Date Juanpablo Burger Lactated Ringers Injection IV (ANES) 1000 mL 2020-02 13:10: 00 No Route: IV, Total Volume: 1,000, Start date: 11/22/20 8:10:00 CDT, Stop date: 11/22/20 9:10:00 CDT Juanpablo adilene Tao Tramadol 2020-02 13:00: 00 No Notes: Not to exceed 400mg/day. (Same As: Ultram) Juanpablo Burger gabapentin 2020-02 13:00: 00 No Notes: (Same as: Neurontin) Boomarissa adilene Tao Isolyte S PH 7.4 (ANES) 1000 mL 2020-02 12:47: 00 No Route: IV, Total Volume: 1,000, Start date: 11/22/20 7:47:00 CDT, Stop date: 11/22/20 8:47:00 CDT Boomarissa Burger Isolyte S PH 7.4 1,000 mL 2020-02 10:48: 00 No Notes: (Same as: Isolyte S PH7.4, Normosol-R PH 7.4, Plasma-Lyt e A ) Juanpablo Burger Acetaminoph en 2020-02 10:48: 00 No 1,000 mg, Route: PO, Drug form: TAB, PRE OP, Dosing Weight 100, kg, Priority: NOW, Start date: 11/22/20 5:48:00 CDT, Duration: 1 doses or times Juanpablo Burger Vitamin D2 50,000 intl units (1.25 mg) oral capsule 11-19 16:43: 00 Yes 50,000 IntlUnit = 1 cap, PO, qWeek, 0 Refill(s) Juanpablo Burger Vitamin D2 50,000 intl units (1.25 mg) oral capsule 11-19 16:43: 00 Yes 50,000 IntlUnit = 1 cap, PO, qWeek, 0 Refill(s) Juanpablo Burger Zofran 4 mg oral tablet 11-19 16:42: 00 Yes 4 mg = 1 tab, PO, Q6H, PRN Nausea/Vom iting, # 30 tab, 0 Refill(s) Juanpablo Burger Ondansetron 4 MG Oral Tablet [Zofran] 11-19 16:42: 00 Yes 4 mg = 1 tab, PO, Q6H, PRN Nausea/Vom iting, # 30 tab, 0 Refill(s) Juanpablo Burger tizanidine 4 mg oral capsule 11-19 16:42: 00 No 4 mg = 1 cap, PO, Q8H, PRN for muscle spasms, # 90 cap, 0 Refill(s) Juanpablo Burger tiZANidine (Zanaflex) 4 MG capsule 11-19 00:00: 00 12-16 00:00 :00 No [id number] 4mg QD TAKE 1 CAPSULE (4 MG TOTAL) BY MOUTH AT NIGHT IF NEEDED FOR MUSCLE SPASMS. [facility] ergocalcife rol (Vitamin D2) 1.25 MG (36250 UT) capsule 11-14 00:00: 00 Yes [id number] TAKE 1 CAPSULE BY MOUTH ONE TIME PER WEEK [facility] No known medications -21 11:40: 40 No No known medication s [facility] metFORMIN (Glucophage ) 500 MG tablet -16 00:00: 00 02-19 00:00 :00 No TAKE 1 TABLET BY MOUTH TWO TIMES A DAY (WITH BREAKFAST AND SUPPER) [facility] oxyCODONE (Roxicodone ) 5 MG immediate release tablet - 00:00: 00 11-13 04:59 :00 No [id number] 10mg Take 2 tablets (10 mg total) by mouth every 8 (eight) hours if needed for severe pain for up to 5 days. [facility] tiZANidine (Zanaflex) 4 MG capsule 10-23 00:00: 00 11-19 00:00 :00 No [id number] 4mg QD TAKE 1 CAPSULE (4 MG TOTAL) BY MOUTH AT NIGHT IF NEEDED FOR MUSCLE SPASMS. [facility] traMADol (Ultram) 50 MG tablet 10-22 00:00: 00 11-02 04:59 :00 No [id number] 50mg Q6H Take 1 tablet (50 mg total) by mouth every 6 (six) hours if needed for severe pain for up to 10 days. [facility] DULoxetine (Cymbalta) [address] capsule -14 00:00: 00 Yes QD Take by mouth 1 (one) time each day. [facility] omeprazole (PriLOSEC) [address] capsule 8-14 00:00: 00 Yes QD Take by mouth 1 (one) time each day. [facility] tiZANidine (Zanaflex) 4 MG capsule 8-03 00:00: 00 10-23 00:00 :00 No [id number] 4mg QD TAKE 1 CAPSULE (4 MG TOTAL) BY MOUTH AT NIGHT IF NEEDED FOR MUSCLE SPASMS. [facility] rosuvastati n (Crestor) 10 MG tablet - 00:00: 00 Yes TAKE 1 TABLET BY MOUTH DAILY IN EVENING [facility] tiZANidine (Zanaflex) 4 MG capsule -08 00:00: 00 08-30 04:59 :00 No [id number] 4mg QD TAKE 1 CAPSULE (4 MG TOTAL) BY MOUTH AT NIGHT IF NEEDED FOR MUSCLE SPASMS. [facility] tiZANidine (Zanaflex) 4 MG capsule 6-16 00:00: 00 08-29 00:00 :00 No [id number] 4mg QD Take 1 capsule (4 mg total) by mouth at night if needed for muscle spasms. [facility] Acetaminoph en 06-14 16:35: 00 No 1,000 mg, Route: PO, Drug form: TAB, ONCE, Dosing Weight 96, kg, PRN Pain Score 1-3, Start date: 06/14/20 11:35:00 CDT Juanpablo Burger midazolam (ANES) 06-14 15:53: 00 No Route: IV, Drug form: SOLN, ONCE, Stop date: 06/14/20 10:53:00 CDT Juanpablo Burger lidocaine (ANES) 06-14 15:53: 00 No Route: IV, Drug form: INJ, ONCE, Stop date: 06/14/20 10:53:00 CDT Juanpablo Burger propofol (ANES) 06-14 15:53: 00 No Route: IV, Drug form: INJ, ONCE, Stop date: 06/14/20 10:53:00 CDT Memmarissa Burger rocuronium (ANES) 06-14 15:53: 00 No Route: IV, Drug form: INJ, ONCE, Stop date: 06/14/20 10:53:00 CDT Juanpablo Burger fentaNYL (ANES) 06-14 15:53: 00 No Route: IV, Drug form: INJ, ONCE, Stop date: 06/14/20 10:53:00 CDT Memmarissa Burger ondansetron (ANES) 06-14 15:53: 00 No Route: IV, Drug form: INJ, ONCE, Stop date: 06/14/20 10:53:00 CDT Memmarissa Burger ceFAZolin (ANES) 06-14 15:53: 00 No Route: IV, Drug form: INJ, ONCE, Stop date: 06/14/20 10:53:00 CDT Memmarissa Burger ketAMINE (ANES) 06-14 15:53: 00 No Route: IV, Drug form: INJ, ONCE, Stop date: 06/14/20 10:53:00 CDT Memmarissa Burger sugammadex (ANES) 06-14 15:53: 00 No Route: IV, Drug form: SOLN, ONCE, Stop date: 06/14/20 10:53:00 CDT Memmarissa Burger acetaminoph en (ANES) 10 mg 06-14 15:27: 00 No Route: IV, Drug form: INJ, Start date: 06/14/20 10:27:00 CDT, Stop date: 06/14/20 11:27:00 CDT Juanpablo Burger Lactated Ringers Injection IV (ANES) 1000 mL 06-14 15:13: 00 No Route: IV, Total Volume: 1,000, Start date: 06/14/20 10:13:00 CDT, Stop date: 06/14/20 11:13:00 CDT Juanpablo Burger Hydralazine 06-14 14:34: 00 No 10 mg, Route: IVP, Q20Min, Dosing Weight 96, kg, PRN Elevated BP, Start date: 06/14/20 9:34:00 CDT, Duration: 2 doses or times, Stop date: Limited # of times Juanpablo Burger Labetalol 06-14 14:34: 00 No 10 mg, Route: IVP, Q5Min, Dosing Weight 96, kg, PRN Elevated BP, Start date: 06/14/20 9:34:00 CDT, Duration: 5 doses or times, Stop date: Limited # of times Juanpablo Burger Oxycodone Hydrochlori de 5 MG Oral Tablet 06-14 14:34: 00 No 5 mg, Route: PO, Drug form: TAB, Q4H, Dosing Weight 96, kg, PRN Pain Score 4-6, Start date: 06/14/20 9:34:00 CDT, Duration: 30 day, Stop date: 07/14/20 9:33:00 CDT Memoria l Toa Hydromorpho ne 06-14 14:34: 00 No 0.5 mg, Route: IVP, Q5Min, Dosing Weight 96, kg, PRN Pain Score 7-10, Start date: 06/14/20 9:34:00 CDT, Duration: 4 doses or times, Stop date: Limited # of times Juanpablo Burger Flumazenil 06-14 14:34: 00 No 0.2 mg, Route: IVP, PRN, Dosing Weight 96, kg, PRN Benzodiaze pine Reversal, Initial dose, Start date: 06/14/20 9:34:00 CDT, Duration: 30 day, Stop date: 07/14/20 9:33:00 CDT Juanpablo Burger Naloxone 06-14 14:34: 00 No 0.4 mg, Route: IVP, Q2MIN, Dosing Weight 96, kg, PRN Narcotic Reversal, Start date: 06/14/20 9:34:00 CDT, Duration: 8 doses or times, Stop date: Limited # of times Juanpablo Burger Ondansetron 06-14 14:34: 00 No Notes: (Same as: Vivienne) MEDICATION WASTE Product Size: 4 mg Product Wasted: ___ mg Juanpablo Burger Isolyte S PH 7.4 1,000 mL 06-14 13:02: 00 No Notes: (Same as: Isolyte S PH7.4, Normosol-R PH 7.4, Plasma-Lyt e A ) Juanpablo Burger Acetaminoph en 06-14 13:02: 00 No 1,000 mg, Route: PO, Drug form: TAB, PRE OP, Dosing Weight 94.091, kg, Priority: NOW, Start date: 06/14/20 8:02:00 CDT, Duration: 1 doses or times Juanpablo Hardyann Vitamin B12 06-07 17:31: 00 Yes QAM, 0 Refill(s) Boomarissa adilene Burger valsartan 80 mg oral tablet 06-07 17:30: 00 Yes 80 mg = 1 tab, PO, QAM, 0 Refill(s) Juanpablo Burger Acetaminoph en 325 MG / Hydrocodone Bitartrate 10 MG Oral Tablet [What Cheer 10/325] 06-07 17:26: 00 Yes 1 tab, PO, Q6H, PRN Pain Score 4-6, 0 Refill(s) Juanpablo Burger non-formula ry 06-07 17:26: 00 Yes Refill(s) 0 Juanpablo Burger Centrum Silver Ultra Women's 06-07 17:25: 00 Yes PO, Daily, 0 Refill(s) Juanpablo Burger biotin 1000 mcg oral tablet 06-07 17:24: 00 Yes 1,000 microgram = 1 tab, PO, Daily, # 30 tab, 0 Refill(s) Juanpablo Burger Vitamin D3 5000 intl units oral tablet 06-07 17:23: 00 Yes 125 microgram, PO, QPM, 0 Refill(s) Juanpablo Burger traMADol HCl - 50 MG Oral Tablet traMADol HCl - 50 MG Oral Tablet 06-05 00:00: 00 Yes CHACE RAMIREZ P.AKasie 1 Q6H TAKE 1 TABLET EVERY 6 HOURS PRN pain [facility] ergocalc[facility] (Vitamin D2) 1.25 MG (08536 [facility]) capsule 06-05 00:00: 00 11-14 00:00 :00 No TAKE 1 CAPSULE WEEKLY. [facility] HYDROcodone -Acetaminop hen 10-325 MG Oral Tablet HYDROcodone -Acetaminop hen 10-325 MG Oral Tablet 05-23 00:00: 00 Yes MILLI ORDAZ M.D. 2 TAKE 1 TO 2 TABLETS EVERY 4 TO 6 HOURS NEEDED FOR PAIN. [facility] Oxycodone Hydrochlori de 5 MG Oral Tablet 05-02 21:13: 00 No Notes: (Same as: Roxicodone ) Juanpablo Burger sennosides, RESIDENTIAL 8.6 MG Oral Tablet 05-02 16:57: 00 Yes 17.2 mg = 2 tab, PO, Bedtime, 0 Refill(s) Juanpablo Burger POLYETHYLEN E GLYCOL 3350 05-02 16:57: 00 Yes 17 gm, PO, Daily, 0 Refill(s) Boomarissa adilene [place] Oxycodone Hydrochlori de 5 MG Oral Tablet 05-02 16:57: 00 Yes 5 mg = 1 tab, PO, Q4H, PRN Pain Score 7-10, 0 Refill(s) Boomarissa adilene [place] Acetaminoph en 500 MG Oral Tablet 05-02 16:56: 00 Yes 1,000 mg = 2 tab, PO, Q8H-06, 0 Refill(s) Boomarissa adilene Tao cholecalcif anil 1000 intl units oral tablet 05-02 16:56: 00 Yes 2,000 IntlUnit = 2 tab, PO, Daily, 0 Refill(s) Boomarissa adilene [place] Enoxaparin 05-02 16:56: 00 Yes 30 mg = 0.3 mL, SUB-Q, Q12H, 0 Refill(s) Boomarissa adilene Burger gabapentin 300 MG Oral Capsule 05-02 16:56: 00 Yes 300 mg = 1 cap, PO, Q8Hnow, 0 Refill(s) Boomarissa adilene Burger Lidocaine 0.04 MG/MG Medicated Patch 05-02 16:56: 00 Yes 1 patch, TOP, Q24H, 0 Refill(s) Boomarissa adilene Burger Fleet Glycerin Suppositori es Adult 04-30 18:27: 00 No 1 supp, Route: FL, Drug Form: SUPP, Dosing Weight 99.091, kg, ONCE, Start date: 04/30/20 12:27:00 OUTREACH AND [employer]UCATION SOCIAL WORKER, Stop date: 04/30/20 12:27:00 OUTREACH AND EDUCATION SOCIAL WORKER, 0 Juanpablo Burger Insulin Glargine 100 UNT/ML Injectable Solution [Lantus] 04-30 15:00: 00 No 5 unit, 0.05 mL, Route: SUB-Q, Drug form: SOLN, Daily, Dosing Weight 99.091, kg, Start date: 04/30/20 9:00:00 OUTREACH AND EDUCATION SOCIAL WORKER, Duration: 30 day, Stop date: 05/29/20 9:00:00 CDT, 0 Juanpablo Burger Insulin Lispro 04-30 04:14: 00 No Notes: (Same as: Humalog) Roll in palms of hands gently; Do not shake vigorously . WASTE: F/P - Black; E - Municipal Trash Bin Stable for 28 days at room temperatur e. Expires in days from ____Date Boomarissa adilene Burger Cefazolin 04-29 02:30: 00 No Notes: (Same as Ancef) Juanpablo Hardyann Acetaminoph en 04-28 22:00: 00 No Notes: Max acetaminop hen 4000 mg/day (4 gm/day). (Same as: Tylenol Extra Strength) Juanpablo adilene Burger glycopyrrol ate (ANES) 04-28 21:09: 00 No Route: IV, Drug form: INJ, ONCE, Stop date: 04/28/20 15:09:00 OUTREACH AND [employer]UCATION SOCIAL WORKER Juanpablo Burger neostigmine (ANES) 04-28 21:09: 00 No Route: IV, Drug form: INJ, ONCE, Stop date: 04/28/20 15:09:00 OUTREACH AND EDUCATION SOCIAL WORKER Boomarissa adilene Burger ondansetron (ANES) 04-28 20:59: 00 No Route: IV, Drug form: INJ, ONCE, Stop date: 04/28/20 14:59:00 OUTREACH AND EDUCATION SOCIAL WORKER Juanpablo adilene Burger dexamethaso ne (ANES) 04-28 19:28: 00 No Route: IV, Drug form: INJ, ONCE, Stop date: 04/28/20 13:28:00 OUTREACH AND EDUCATION SOCIAL WORKER Juanpablo adilene Burger phenylephri ne (ANES) 04-28 19:23: 00 No Route: IV, Drug form: INJ, ONCE, Stop date: 04/28/20 13:23:00 OUTREACH AND EDUCATION SOCIAL WORKER Juanpablo Burger midazolam (ANES) 04-28 19:18: 00 No Route: IV, Drug form: SOLN, ONCE, Stop date: 04/28/20 13:18:00 OUTREACH AND EDUCATION SOCIAL WORKER Juanpablo Burger lidocaine (ANES) 04-28 19:18: 00 No Route: IV, Drug form: INJ, ONCE, Stop date: 04/28/20 13:18:00 OUTREACH AND EDUCATION SOCIAL WORKER Memmarissa Burger propofol (ANES) 04-28 19:18: 00 No Route: IV, Drug form: INJ, ONCE, Stop date: 04/28/20 13:18:00 OUTREACH AND EDUCATION SOCIAL WORKER Memmarissa Burger rocuronium (ANES) 04-28 19:18: 00 No Route: IV, Drug form: INJ, ONCE, Stop date: 04/28/20 13:18:00 OUTREACH AND EDUCATION SOCIAL WORKER Boomarissa Burger fentaNYL (ANES) 04-28 19:18: 00 No Route: IV, Drug form: INJ, ONCE, Stop date: 04/28/20 13:18:00 OUTREACH AND EDUCATION SOCIAL WORKER Boomarissa Burger ceFAZolin (ANES) 04-28 19:18: 00 No Route: IV, Drug form: INJ, ONCE, Stop date: 04/28/20 13:18:00 OUTREACH AND EDUCATION SOCIAL WORKER Boomarissa Burger ketAMINE (ANES) 04-28 19:18: 00 No Route: IV, Drug form: INJ, ONCE, Stop date: 04/28/20 13:18:00 OUTREACH AND EDUCATION SOCIAL WORKER Boomarissa Burger Hydralazine 04-28 18:56: 00 No Notes: (Same as: Apresoline ) Push over 5 minutes Juanpablo adilene HardyTao Labetalol 04-28 18:56: 00 No 10 mg, 2 mL, Route: IVP, Drug form: INJ, Q5Min, Dosing Weight 99.091, kg, PRN Elevated BP, Start date: 04/28/20 12:56:00 OUTREACH AND EDUCATION SOCIAL WORKER, Duration: 5 doses or times, Stop date: 04/29/20 13:04:00 OUTREACH AND EDUCATION SOCIAL WORKER, 0 Memmarissa Hardyann Acetaminoph en 04-28 18:56: 00 No Notes: Max acetaminop hen 4000 mg/day (4 gm/day). (Same as: Tylenol Extra Strength) Juanpablo head [place] Oxycodone Hydrochlori de 5 MG Oral Tablet 04-28 18:56: 00 No Notes: (Same as: Roxicodone ) Juanpablo Burger Morphine 04-28 18:56: 00 No Notes: (Same as:MORPhin e Sulfate) Juanpablo Burger Hydromorpho ne 04-28 18:56: 00 No Notes: Same as Dilaudid Memmarissa Burger Flumazenil 04-28 18:56: 00 No Notes: (Same as: Romazicon) Juanpablo Burger Naloxone 04-28 18:56: 00 No Notes: Same as Narcan Juanpablo Burger Ondansetron 04-28 18:56: 00 No Notes: (Same as: Zofran) MEDICATION WASTE Product Size: 4 mg Product Wasted: ___ mg Juanpablo Burger Lactated Ringers Injection IV (ANES) 1000 mL 04-28 18:14: 00 No Route: IV, Total Volume: 1,000, Start date: 04/28/20 12:14:00 OUTREACH AND EDUCATION SOCIAL WORKER, Stop date: 04/28/20 13:14:00 OUTREACH AND EDUCATION SOCIAL WORKER Juanpablo Burger POLYETHYLEN E GLYCOL 3350 04-28 15:00: 00 No Notes: Dissolve in 8 oz of water or juice. (Same as: Miralax) Juanpablo Burger Vitamin D3 04-28 15:00: 00 No Notes: Same as : Vitamin D3 Juanpablo Burger duloxetine 04-28 15:00: 00 No Notes: (Same as: Cymbalta) (Do Not Crush) Juanpablo Burger Enoxaparin 04-28 09:00: 00 No 40 mg, Route: SUB-Q, Drug form: INJ, [id number], Dosing Weight 99.091, kg, Start date: 04/28/20 3:00:00 OUTREACH AND EDUCATION SOCIAL WORKER, Stop date: 05/27/20 3:00:00 CDT Memmarissa Burger remove patch 04-28 09:00: 00 No 1 patch, Route: TOP, Q24H, Drug form: ERFILM, Start date: 04/28/20 3:00:00 OUTREACH AND EDUCATION SOCIAL WORKER, Duration: 30 day, Stop date: 05/27/20 3:00:00 CDT, 0 Memmarissa Burger Lactated Ringers IV 1,000 mL 04-28 06:01: 00 No 1,000 mL, Rate: 75 ml/hr, Infuse over: 13.3 hr, Route: IV, Dosing Weight 99.091 kg, Total Volume: 1,000, Start date: 04/28/20 0:01:00 OUTREACH AND EDUCATION SOCIAL WORKER, Duration: 16 hr, Stop date: 04/28/20 16:00:00 OUTREACH AND EDUCATION SOCIAL WORKER, 2.12, m2, 0 Boomarissa adilene Burger sennosides, RESIDENTIAL 04-28 03:00: 00 No Notes: (Same as: Senokot) Boomarissa adilene Burger Enoxaparin 04-28 03:00: 00 No 40 mg, Route: SUB-Q, Drug form: INJ, Q12H, Dosing Weight 99.091, kg, Start date: 04/27/20 21:00:00 OUTREACH AND EDUCATION SOCIAL WORKER, Duration: 30 day, Stop date: 05/27/20 9:00:00 CDT Boomarissa adilene Burger rosuvastati n 04-28 03:00: 00 No Notes: (Same As: Crestor) Juanpablo Burger mesalamine 800 MG Enteric Coated Tablet 04-27 23:00: 00 No Notes: (Same as: Asacol HD) (Do not crush) Juanpablo Burger pantoprazol e 04-27 22:30: 00 No Notes: Tablet should not be chewed or crushed. (Same as: Protonix) Boomarissa adilene Burger rosuvastati n 10 mg oral tablet 04-27 22:02: 00 Yes 10 mg = 1 tab, PO, Bedtime, 0 Refill(s) Juanpablo Burger valsartan 80 mg oral tablet 04-27 22:02: 00 No 80 mg = 1 tab, PO, Daily, 0 Refill(s) Juanpablo Burger omeprazole 40 mg oral delayed release capsule 04-27 22:01: 00 Yes 40 mg = 1 cap, PO, QAM, 0 Refill(s) Juanpablo Burger mesalamine 800 mg oral enteric coated tablet 04-27 21:59: 00 Yes 800 mg = 1 tab, PO, BID, 0 Refill(s) Juanpablo Burger metFORMIN 500 mg oral tablet 04-27 21:59: 00 Yes 500 mg = 1 tab, PO, BID, 0 Refill(s) Juanpablo Burger mesalamine 800 MG Enteric Coated Tablet 04-27 21:59: 00 Yes 800 mg = 1 tab, PO, BID, 0 Refill(s) Juanpablo Burger Metformin hydrochlori de 500 MG Oral Tablet 04-27 21:59: 00 Yes 500 mg = 1 tab, PO, BID, 0 Refill(s) Juanpablo Burger linaclotide 0.145 MG Oral Capsule [Linzess] 04-27 21:56: 00 No 145 microgram = 1 cap, PO, Daily, 0 Refill(s) Juanpablo Burger DULoxetine 30 mg oral delayed release capsule 04-27 21:54: 00 Yes 30 mg = 1 cap, PO, QPM, 0 Refill(s) Juanpablo Burger Enoxaparin 04-27 21:00: 00 No 40 mg, Route: SUB-Q, Drug form: INJ, [id number], Dosing Weight 99.091, kg, Start date: 04/27/20 15:00:00 OUTREACH AND EDUCATION SOCIAL WORKER, Stop date: 05/26/20 15:00:00 CDT Juanpablo Burger Lidocaine 0.04 MG/MG Medicated Patch 04-27 21:00: 00 No Notes: Apply only once for up to 12 hours in a 24-hour period (12 hours on and 12 hours off). (Same as: Aspercreme Lidocaine Patch) "Remove old patch before applicatio n of new patch" Juanpablo Burger Acetaminoph en 04-27 21:00: 00 No Notes: Max acetaminop hen 4000 mg/day (4 gm/day). (Same as: Tylenol Extra Strength) Juanpablo Burger gabapentin 04-27 21:00: 00 No Notes: (Same as: Neurontin) Juanpablo Burger Centrum Silver Women's 04-27 20:24: 00 No PO, Daily, 0 Refill(s) Juanpablo Burger D50W (bolus) IV 04-27 20:19: 00 No 12.5 gm, 25 mL, Route: IVP, Drug Form: INJ, Dosing Weight 99.091, kg, PRN, PRN Blood Glucose Results, Start date: 04/27/20 14:19:00 OUTREACH AND EDUCATION SOCIAL WORKER, Duration: 30 day, Stop date: 05/27/20 15:18:00 CDT, 0 Juanpablo Burger Glucagon 04-27 20:19: 00 No 1 mg, Route: IM, Drug form: PDR/INJ, PRN, Dosing Weight 99.091, kg, PRN Blood Glucose Results, Start date: 04/27/20 14:19:00 OUTREACH AND EDUCATION SOCIAL WORKER, Duration: 30 day, Stop date: 05/27/20 15:18:00 CDT, 0 Juanpablo Burger Insulin Lispro 04-27 20:19: 00 No Notes: (Same as: Humalog) Roll in palms of hands gently; Do not shake vigorously . WASTE: F/P - Black; E - Municipal Trash Bin Stable for 28 days at room temperatur e. Expires in days from ____Date Juanpalbo Burger Oxycodone Hydrochlori de 5 MG Oral Tablet 04-27 20:16: 00 No Notes: (Same as: Roxicodone ) Boomarissa adilene Burger Morphine 04-27 20:16: 00 No Notes: (Same as:MORPhin e Sulfate) Juanpablo Burger Ondansetron 04-27 20:03: 00 No Notes: (Same as: Nikkifrbirdie) MEDICATION WASTE Product Size: 4 mg Product Wasted: ___ mg Boomarissa adilene Burger Melatonin 04-27 20:03: 00 No Notes: (Same as: Melatonin) Boomarissa adilene Burger Acetaminoph en 04-27 20:03: 00 No Notes: Do not exceed 4 gm/day. (Same as: Tylenol) Juanpablo Burger Calcium Chloride 0.0014 MEQ/ML / Potassium Chloride 0.004 MEQ/ML / Sodium Chloride 0.103 MEQ/ML / Sodium Lactate 0.028 MEQ/ML Injectable Solution 04-27 19:32: 00 No 1,000 mL, 1,000 ml/hr, Infuse Over: 1 hr, Route: IV, 1,000, Drug form: INJ, ONCE, Priority: STAT, Dosing Weight 99.091 kg, Start date: 04/27/20 13:32:00 OUTREACH AND EDUCATION SOCIAL WORKER, Stop date: 04/27/20 13:32:00 OUTREACH AND EDUCATION SOCIAL WORKER, 0 Memoria l [place] Morphine 0 04-27 19:05: 00 No 4 mg, Route: IVP, ONCE, Dosing Weight 99.091, kg, Priority: STAT, Start date: 04/27/20 13:05:00 OUTREACH AND EDUCATION SOCIAL WORKER, Stop date: 04/27/20 13:05:00 OUTREACH AND EDUCATION SOCIAL WORKER Memoria l [place] Morphine 04-27 17:14: 00 No 4 mg, Route: IVP, ONCE, Dosing Weight 99.091, kg, Start date: 04/27/20 11:14:00 OUTREACH AND EDUCATION SOCIAL WORKER, Stop date: 04/27/20 11:14:00 OUTREACH AND EDUCATION SOCIAL WORKER Memoria l [place] Ketamine 0 04-27 17:03: 00 No 20 mg, Route: IV, ONCE, Dosing Weight 99.091, kg, Start date: 04/27/20 11:03:00 OUTREACH AND EDUCATION SOCIAL WORKER, Stop date: 04/27/20 11:03:00 OUTREACH AND EDUCATION SOCIAL WORKER Memoria l [place] Calcium Chloride 0.0014 MEQ/ML / Potassium Chloride 0.004 MEQ/ML / Sodium Chloride 0.103 MEQ/ML / Sodium Lactate 0.028 MEQ/ML Injectable Solution 04-27 15:56: 00 No 1,000 mL, Infuse Over: 1 hr, Route: IV, ONCE, Priority: STAT, Dosing Weight 99.091 kg, Start date: 04/27/20 9:56:00 OUTREACH AND EDUCATION SOCIAL WORKER, Stop date: 04/27/20 9:56:00 OUTREACH AND EDUCATION SOCIAL WORKER Memoria l [place] Ketamine 0 04-27 15:55: 00 No 20 mg, Route: IV, ONCE, Dosing Weight 99.091, kg, Start date: 04/27/20 9:55:00 OUTREACH AND EDUCATION SOCIAL WORKER, Stop date: 04/27/20 9:55:00 OUTREACH AND EDUCATION SOCIAL WORKER Memoria l Tao Fentanyl 2020-0 04-27 15:42: 00 No 50 microgram, Route: IVP, ONCE, Dosing Weight 99.091, kg, Priority: STAT, Start date: 04/27/20 9:42:00 OUTREACH AND EDUCATION SOCIAL WORKER, Stop date: 04/27/20 9:42:00 OUTREACH AND EDUCATION SOCIAL WORKER Juanpablo Burger Fentanyl 04-27 14:45: 00 No Notes: (Same as: Sublimaze) Preservati ve free. Juanpablo Burger Fentanyl 04-27 14:33: 00 No 50 microgram, Route: IVP, ONCE, Dosing Weight 99.091, kg, Priority: STAT, Start date: 04/27/20 8:33:00 OUTREACH AND EDUCATION SOCIAL WORKER, Stop date: 04/27/20 8:33:00 OUTREACH AND EDUCATION SOCIAL WORKER Juanpablo Burger Fentanyl 04-27 14:15: 00 No 50 microgram, Route: IVP, ONCE, Dosing Weight 99.091, kg, Priority: STAT, Start date: 04/27/20 8:15:00 OUTREACH AND EDUCATION SOCIAL WORKER, Stop date: 04/27/20 8:15:00 OUTREACH AND EDUCATION SOCIAL WORKER Juanpablo Burger linaclotide 0.145 MG Oral Capsule [Linzess] 2019-02 16:20: 00 Yes 0 Refill(s) Juanpablo Burger omeprazole 40 mg oral delayed release capsule 2019-02 21:18: 00 Yes 0 Refill(s) Juanpablo Burger rosuvastati n 10 mg oral tablet 2019-02 21:18: 00 Yes 0 Refill(s) Juanpablo Burger valsartan 80 mg oral tablet 2019-02 21:18: 00 Yes 0 Refill(s) Juanpablo Burger mesalamine 800 MG Enteric Coated Tablet 2019-02 21:18: 00 Yes 0 Refill(s) Juanpablo Burger Metformin hydrochlori de 500 MG Oral Tablet 2019-02 21:18: 00 Yes 0 Refill(s) Juanpablo Burger DULoxetine 30 mg oral delayed release capsule 2019-02 21:18: 00 Yes 0 Refill(s) Juanpablo Burger ondansetron 4 mg oral tablet 2019-02 21:18: 00 Yes 0 Refill(s) Juanpablo Burger Vitamin D3 2019-02 21:18: 00 Yes 0 Refill(s) Juanpablo Burger biotin 2019-02 21:18: 00 Yes PO, Daily, 0 Refill(s) Juanpablo Burger Centrum Silver oral tablet 2019-02 21:18: 00 Yes PO, Daily, 0 Refill(s) Juanpablo Burger Docusate Sodium 100 MG Oral Capsule [Colace] 2019-02 21:18: 00 Yes 100 mg = 1 cap, PO, BID, 0 Refill(s) Juanpablo Burger Magnesium Sulfate 2019-02 21:18: 00 Yes 1 gm, IV, ONCE, 0 Refill(s) Juanpablo Burger Miralax 2019-02 21:18: 00 Yes 17 gm, PO, Daily, 0 Refill(s) Juanpablo Burger Vitamin B12 2019-02 21:18: 00 Yes 0 Refill(s) Juanpablo Burger TRAMADOL 50 mg tablet 08-12 00:00: 00 Yes [id number] TAKE 1 TABLET BY MOUTH EVERY 8 HOURS NEEDED FOR PAIN SCALE 7-10 [facility] omeprazole 40 mg capsule 03-26 00:00: 00 Yes 40mg Take 40 mg by mouth in the morning. [facility] ondansetron 4 mg tablet 03-01 00:00: 00 Yes 4mg Take 4 mg by mouth as needed. [facility] mesalamine 800 mg EC tablet 02-25 00:00: 00 Yes 800mg Take 800 mg by mouth in the morning and 800 mg in the evening. [facility] valsartan 80 mg tablet 02-23 00:00: 00 Yes 80mg Take 80 mg by mouth in the morning. [facility] Immunizations Ordered Immunization Name Filled Immunization Name Date Status Comments Source SARS-COV-2 COVID-19 MODERNA 12+ YRS VACCINE 2021-02-04 00:00:00 Completed [facility] SARS-COV-2 COVID-19 MODERNA 12+ YRS VACCINE 2021-02-04 00:00:00 Completed [facility] SARS-COV-2 COVID-19 MODERNA 12+ YRS VACCINE 2021-02-04 00:00:00 Completed [facility] SARS-COV-2 COVID-19 MODERNA 12+ YRS VACCINE 2021-02-04 00:00:00 Completed [facility] SARS-COV-2 COVID-19 MODERNA 12+ YRS VACCINE 2021-02-04 00:00:00 Completed [facility] COVID-19 Moderna 18 & Over Vaccination 2020-04-16 00:00:00 Completed [facility] COVID-19 Moderna 18 & Over Vaccination 2020-04-16 00:00:00 Completed [facility] COVID-19 Moderna 18 & Over Vaccination 2020-04-16 00:00:00 Completed [facility] COVID-19 Moderna 18 & Over Vaccination 2020-04-16 00:00:00 Completed [facility] COVID-19 Moderna 12 & Over Vaccination (CREDIT CLERK) 2020-04-16 00:00:00 Completed [facility] COVID-19 Moderna 12 & Over Vaccination (CREDIT CLERK) 2020-04-16 00:00:00 Completed [facility] COVID-19 Moderna 12 & Over Vaccination (CREDIT CLERK) 2020-04-16 00:00:00 Completed [facility] COVID-19 Moderna 12 & Over Vaccination (CREDIT CLERK) 2020-04-16 00:00:00 Completed [facility] COVID-19 Moderna 12 & Over Vaccination (CREDIT CLERK) 2020-04-16 00:00:00 Completed [facility] COVID-19 Moderna Primary 12+yr (red) 2020-04-16 00:00:00 Completed [facility] COVID-19 Moderna Primary 12+yr (red) 2020-04-16 00:00:00 Completed [facility] COVID-19 Moderna Primary 12+yr (red) 2020-04-16 00:00:00 Completed [facility] COVID-19 Moderna Primary 12+yr (red) 2020-04-16 00:00:00 Completed [facility] COVID-19 Moderna Primary 12+yr (red) 2020-04-16 00:00:00 Completed [facility] COVID-19 Moderna 18 & Over Vaccination 2020-03-19 00:00:00 Completed [facility] COVID-19 Moderna 18 & Over Vaccination 2020-03-19 00:00:00 Completed [facility] COVID-19 Moderna 18 & Over Vaccination 2020-03-19 00:00:00 Completed [facility] COVID-19 Moderna 18 & Over Vaccination 2020-03-19 00:00:00 Completed [facility] COVID-19 Moderna 12 & Over Vaccination (CREDIT CLERK) 2020-03-19 00:00:00 Completed [facility] COVID-19 Moderna 12 & Over Vaccination (CREDIT CLERK) 2020-03-19 00:00:00 Completed [facility] COVID-19 Moderna 12 & Over Vaccination (CREDIT CLERK) 2020-03-19 00:00:00 Completed [facility] COVID-19 Moderna 12 & Over Vaccination (CREDIT CLERK) 2020-03-19 00:00:00 Completed [facility] COVID-19 Moderna 12 & Over Vaccination (CREDIT CLERK) 2020-03-19 00:00:00 Completed [facility] COVID-19 Moderna Primary 12+yr (red) 2020-03-19 00:00:00 Completed [facility] COVID-19 Moderna Primary 12+yr (red) 2020-03-19 00:00:00 Completed [facility] COVID-19 Moderna Primary 12+yr (red) 2020-03-19 00:00:00 Completed [facility] COVID-19 Moderna Primary 12+yr (red) 2020-03-19 00:00:00 Completed [facility] COVID-19 Moderna Primary 12+yr (red) 2020-03-19 00:00:00 Completed [facility] [id number] Unknown Completed [facility] [id number] RNA-[id number] Unknown Completed [facility] COVID-19 [facility] Primary 12+yr (red) Unknown [facility] (red[facility] Unknown Completed [facility]19 [facility]+yr (red[facility] Unknown Completed [facility] COVID-19 [facility] 12+yr (red[facility] Unknown Completed [facility] COVID-19 [facility] 12+yr (red[facility] Unknown Completed [facility]-19 [facility] 12+yr (red[facility] Unknown Completed [facility] COVID-19 [facility] 12+yr (red[facility] Unknown Completed [facility] COVID-19 [facility] 12+yr (red) Unknown Completed [facility] COVID-19 [facility] 12+yr (red[facility] Unknown Completed [facility] COVID-19 [facility] 12+yr (red[facility] Unknown Completed [facility]19 [facility]+yr (red) Unknown [facility] Vital Signs Vital Name Observation Time Observation Value Comments S ource Body height 2024-03-29 19:33:00 157.5 cm [facility] Body weight 2024-03-29 19:33:00 89.359 [facility] BMI 2024-03-29 19:33:00 36.03 kg/m2 [facility] Body height 2023-09-22 18:47:00 154.9 cm [facility] Body weight 2023-09-22 18:47:00 84.369 kg [facility] BMI 2023-09-22 18:47:00 35.14 kg/m2 [facility] Body height 2023-08-13 15:14:00 156.2 cm [facility] Body weight 2023-08-13 15:14:00 84.596 [facility] BMI 2023-08-13 15:14:00 34.67 kg/m2 [facility] Body height 2023-05-28 17:00:00 156.2 [facility] Body weight 2023-05-28 17:00:00 81.647 [facility] BMI 2023-05-28 17:00:00 33.46 kg[facility]m2 [facility] Body height 2023-02-04 16:40:00 156.2 cm [facility] Body weight 2023-02-04 16:40:00 92.08 kg [facility] BMI 2023-02-04 16:40:00 37.74 kg/m2 [facility] Body height 2023-01-20 21:33:00 156.2 cm [facility] Body weight 2023-01-20 21:33:00 92.08 kg [facility] BMI 2023-01-20 21:33:00 37.74 kg/m2 [facility] Systolic blood pressure 2021-12-10 14:20:00 154 mm[Hg] [facility] Diastolic blood pressure 2021-12-10 14:20:00 61 mm[Hg] [facility] Heart rate 2021-12-10 14:20:00 59 /min [facility] Respiratory rate 2021-12-10 14:20:00 16 /min [facility] Oxygen saturation in Arterial blood by Pulse oximetry 2021-12-10 14:20:00 99 /min [facility] Body temperature 2021-12-10 14:06:00 36.11 Pratima [facility] Body height 2021-12-08 11:57:00 157.5 cm [facility] Body weight 2021-12-08 11:57:00 98.9 kg [facility] BMI 2021-12-08 11:57:00 39.87 kg/m2 [facility] Systolic blood pressure 2021-12-10 12:49:00 135 mm[Hg] [facility] Diastolic blood pressure 2021-12-10 12:49:00 61 mm[Hg] [facility] Heart rate 2021-12-10 12:49:00 78 /min [facility] Body temperature 2021-12-10 12:42:00 36.56 Pratima [facility] Respiratory rate 2021-12-10 12:42:00 18 /min [facility] Oxygen saturation in Arterial blood by Pulse oximetry 2021-12-10 12:42:00 99 /min [facility] Body height 2021-12-08 11:57:00 157.5 cm [facility] Body weight 2021-12-08 11:57:00 98.9 kg [facility] BMI 2021-12-08 11:57:00 39.87 kg/m2 [facility] Body height 2021-12-05 16:04:00 157.5 cm [facility] weight 2021-12-05 16:04:00 98.431 kg [facility] BMI 2021-12-05 16:04:00 39.68 kg/m2 [facility] Systolic blood pressure 2021-11-26 14:56:00 126 mm[Hg] [facility] Diastolic blood pressure 2021-11-26 14:56:00 60 mm[Hg] [facility] Heart rate 2021-11-26 14:56:00 84 /min [facility] Respiratory rate 2021-11-26 14:56:00 19 /min [facility] Oxygen saturation in Arterial blood by Pulse oximetry 2021-11-26 14:56:00 98 /min [facility] Body temperature 2021-11-26 14:40:00 36.61 Pratima [facility] Body height 2021-11-13 16:35:00 157.5 cm [facility] Body weight 2021-11-13 16:35:00 105.1 kg [facility] BMI 2021-11-13 16:35:00 42.37 kg/m2 [facility] Systolic blood pressure 2021-11-26 12:36:00 154 mm[Hg] [facility] Diastolic blood pressure 2021-11-26 12:36:00 84 mm[Hg] [facility] Heart rate 2021-11-26 12:36:00 89 /min [facility] Body temperature 2021-11-26 12:36:00 36.33 Pratima [facility] Respiratory rate 2021-11-26 12:36:00 14 /min [facility] Oxygen saturation in Arterial blood by Pulse oximetry 2021-11-26 12:36:00 99 /min [facility] Body height 2021-11-13 16:35:00 157.5 cm [facility] Body weight 2021-11-13 16:35:00 105.1 kg [facility] BMI 2021-11-13 16:35:00 42.37 kg/m2 [facility] Body height 2021-11-11 15:50:00 157.5 cm [facility] weight 2021-11-11 15:50:00 [facility]431 [facility] BMI 2021-11-11 15:50:00 39.69 kg/m2 [facility] height 2021-10-13 15:02:00 157.5 cm [facility] Body weight 2021-10-13 15:02:00 100.245 kg [facility] BMI 2021-10-13 15:02:00 40.42 kg/m2 [facility] Body height 2020-11-22 23:08:16 156.2 cm [facility] Body weight 2020-11-22 23:08:16 100 kg [facility] BMI 2020-11-22 23:08:16 40.98 kg/m2 [facility] Body height 2020-11-22 23:08:16 156.2 cm [facility] Body weight 2020-11-22 23:08:16 100 kg [facility] BMI 2020-11-22 23:08:16 40.98 kg/m2 [facility] Body height 2020-11-22 23:08:16 156.2 cm [facility] Body weight 2020-11-22 23:08:16 100 kg [facility] BMI 2020-11-22 23:08:16 40.98 kg/m2 [facility] Body height 2020-11-22 23:08:16 156.2 cm [facility] Body weight 2020-11-22 23:08:16 100 kg [facility] BMI 2020-11-22 23:08:16 40.98 kg/m2 [facility] Body height 2020-11-12 16:13:00 156.2 cm [facility] Body weight 2020-11-12 16:13:00 100.336 kg [facility] BMI 2020-11-12 16:13:00 41.12 kg/m2 [facility] Heart Rate 2022-08-27 22:15:52 [facility] Systolic (mm Hg) 2022-08-27 22:15:42 [facility] Diastolic (mm Hg) 2022-08-27 22:15:42 [facility] Temperature Oral (F) 2022-08-27 22:15:32 97.5 F [facility] Weight 2022-08-27 12:37:00 [facility] Height 2022-08-17 20:31:00 0 [ft_i] [facility] Weight 2022-08-17 20:31:00 [facility] BMI Calculated 2022-08-17 20:31:00 [facility] Height 2021-11-12 14:23:00 160.02 cm [facility] Weight 2021-11-12 14:23:00 [facility] BMI Calculated 2021-11-12 14:23:00 [facility] Respitory Rate 2021-06-30 17:55:00 [facility] Systolic (mm Hg) 2021-06-30 17:55:00 [facility] Diastolic (mm Hg) 2021-06-30 17:55:00 [facility] Systolic (mm Hg) 2021-06-30 17:15:00 [facility] Diastolic (mm Hg) 2021-06-30 17:15:00 [facility] Systolic (mm Hg) 2021-06-30 17:00:00 [facility] Diastolic (mm Hg) 2021-06-30 17:00:00 [facility] Respitory Rate 2021-06-30 16:00:00 [facility] Respitory Rate 2021-06-30 15:45:00 [facility] Temperature Oral (F) 2021-06-30 11:17:00 98.4 F [facility] Heart Rate 2021-06-30 11:17:00 [facility] Height 2021-06-30 11:02:00 160.02 cm [facility] Weight 2021-06-30 11:02:00 [facility] BMI Calculated 2021-06-30 11:02:00 [facility] Height 2021-06-27 13:40:00 157.48 cm [facility] Weight 2021-06-27 13:40:00 [facility] BMI Calculated 2021-06-27 13:40:00 [facility] Temperature Oral (F) 2020-11-25 17:38:00 97.2 F [facility] Heart Rate 2020-11-25 17:38:00 [facility] Systolic (mm Hg) 2020-11-25 17:38:00 [facility] Diastolic (mm Hg) 2020-11-25 17:38:00 [facility] Temperature Oral (F) 2020-11-25 13:00:00 97.4 F [facility] Heart Rate 2020-11-25 13:00:00 [facility] Systolic (mm Hg) 2020-11-25 13:00:00 [facility] Diastolic (mm Hg) 2020-11-25 13:00:00 [facility] Temperature Oral (F) 2020-11-25 09:29:00 97.7 F [facility] Heart Rate 2020-11-25 09:29:00 [facility] Respitory Rate 2020-11-25 09:29:00 [facility] Systolic (mm Hg) 2020-11-25 09:29:00 [facility] Diastolic (mm Hg) 2020-11-25 09:29:00 [facility] Respitory Rate 2020-11-25 04:59:00 [facility] Respitory Rate 2020-11-25 00:14:00 [facility] Height 2020-11-22 23:08:00 156.21 cm [facility] Weight 2020-11-22 23:08:00 [facility] BMI Calculated 2020-11-22 23:08:00 [facility] Height 2020-11-22 11:00:00 156.21 cm [facility] Weight 2020-11-22 11:00:00 [facility] BMI Calculated 2020-11-22 11:00:00 [facility] Height 2020-11-19 16:18:00 156.21 cm [facility] Weight 2020-11-19 16:18:00 [facility] BMI Calculated 2020-11-19 16:18:00 [facility] Respitory Rate 2020-06-14 18:15:00 [facility] Systolic (mm Hg) 2020-06-14 18:15:00 [facility] Diastolic (mm Hg) 2020-06-14 18:15:00 [facility] Respitory Rate 2020-06-14 17:45:00 [facility] Systolic (mm Hg) 2020-06-14 17:45:00 [facility] Diastolic (mm Hg) 2020-06-14 17:45:00 [facility] Respitory Rate 2020-06-14 17:30:00 [facility] Systolic (mm Hg) 2020-06-14 17:30:00 [facility] Diastolic (mm Hg) 2020-06-14 17:30:00 [facility] Height 2020-06-14 13:20:00 157.48 cm [facility] Weight 2020-06-14 13:20:00 [facility] BMI Calculated 2020-06-14 13:20:00 [facility] Heart Rate 2020-06-14 12:57:00 [facility] Height 2020-06-07 17:21:00 157.48 cm [facility] Weight 2020-06-07 17:21:00 [facility] BMI Calculated 2020-06-07 17:21:00 [facility] Temperature Oral (F) 2020-05-03 21:53:00 98 F [facility] Respitory Rate 2020-05-03 21:53:00 [facility] Systolic (mm Hg) 2020-05-03 21:53:00 [facility] Diastolic (mm Hg) 2020-05-03 21:53:00 [facility] Heart Rate 2020-05-03 21:53:00 [facility] Temperature Oral (F) 2020-05-03 17:29:00 98.0 F [facility] Heart Rate 2020-05-03 17:29:00 [facility] [place] Respitory Rate 2020-05-03 17:29:00 [facility] Systolic (mm Hg) 2020-05-03 17:29:00 [facility] Diastolic (mm Hg) 2020-05-03 17:29:00 [facility] Temperature Oral (F) 2020-05-03 13:51:00 97.9 F [facility] Respitory Rate 2020-05-03 13:51:00 [facility] Heart Rate 2020-05-03 13:51:00 [facility] [place] Systolic (mm Hg) 2020-05-03 13:51:00 [facility] Diastolic (mm Hg) 2020-05-03 13:51:00 [facility] Height 2020-05-01 13:46:00 157.48 cm [facility] Weight 2020-05-01 13:46:00 [facility] BMI Calculated 2020-05-01 13:46:00 [facility] Temperature Oral (F) 2020-04-29 10:05:00 97.6 F [facility] Respitory Rate 2020-04-29 10:05:00 [facility] Systolic (mm Hg) 2020-04-29 10:05:00 [facility] Diastolic (mm Hg) 2020-04-29 10:05:00 [facility] Temperature Oral (F) 2020-04-29 06:19:00 97.6 F [facility] Respitory Rate 2020-04-29 06:19:00 [facility] Systolic (mm Hg) 2020-04-29 06:19:00 [facility] Diastolic (mm Hg) 2020-04-29 06:19:00 [facility] Temperature Oral (F) 2020-04-29 02:49:00 97.7 F [facility] Systolic (mm Hg) 2020-04-29 02:49:00 [facility] Diastolic (mm Hg) 2020-04-29 02:49:00 [facility] Respitory Rate 2020-04-29 02:49:00 [facility] Heart Rate 2020-04-28 17:59:00 [facility] [place] Heart Rate 2020-04-28 13:20:00 [facility] Heart Rate 2020-04-28 10:22:00 [facility] Height 2020-04-27 14:04:00 157.48 cm [facility] BMI Calculated 2020-04-27 14:04:00 [facility] Weight 2020-04-27 14:04:00 [facility] Height 2020-04-15 14:25:00 157.48 cm [facility] Weight 2020-04-15 14:25:00 [facility] BMI Calculated 2020-04-15 14:25:00 [facility] Height 2020-01-01 16:16:00 157.48 cm Drake olveraadilene Burger Weight 2020-01-01 16:16:00 Booor carolyn Toa BMI Calculated 2020-01-01 16:16:00 M waleska Burger Procedures Procedure Date / Time Performed Performing Clinician Source Total knee arthroplasty 2022-08-27 05:00:00 [facility] VACCINATIONS - CONSENTS, ELIGIBILITY, HISTORY 2022-02-11 06:01:00 Doctor Unassigned, [place] [facility] PHACOEMULSIFICATION OF CATARACT WITH INTRAOCULAR LENS IMPLANT 2021-12-10 13:25:00 Rome Serrano [facility] POCT GLUCOSE (AUTOMATED) 2021-12-10 12:50:00 Rome Serrano [facility] POCT GLUCOSE (AUTOMATED) 2021-12-10 12:50:00 Rome Serrano [facility] PATIENT QUESTIONNAIRE 2021-12-10 05:01:00 Doctor Unassigned, [place] [facility] DAY SURGERY - ADC 2021-12-10 05:01:00 Doctor Unassigned, [place] [facility] CONSENT/REFUSAL FOR DIAGNOSI S AND TREATMENT 2021-12-08 15:08:31 Doctor Unassigned, [place] [facility] CONSENT/REFUSAL FOR DIAGNOSI S AND TREATMENT 2021-12-08 15:08:31 Doctor Unassigned, [place] [facility] ASSIGNMENT OF BENEFITS 2021-12-08 15:07:39 Doctor Unassigned, [place] [facility] ASSIGNMENT OF BENEFITS 2021-12-08 15:07:39 Doctor Unassigned, [place] [facility] PHACOEMULSIFICATION OF CATARACT WITH INTRAOCULAR LENS IMPLANT 2021-11-26 14:05:00 Rome Serrano [facility] POCT GLUCOSE (AUTOMATED) 2021-11-26 12:56:00 Rome Serrano [facility] POCT GLUCOSE (AUTOMATED) 2021-11-26 12:56:00 Rome Serrano [facility] POCT GLUCOSE(AGE >30DAYS) 2021-11-26 12:55:00 Rome Serrano [facility] POCT GLUCOSE(AGE >30DAYS) 2021-11-26 12:55:00 Rome Serrano [facility] ASSIGNMENT OF BENEFITS 2021-11-21 21:33:15 Doctor Unassigned, [place] [facility] Orthopedic device removal 2021-06-30 05:00:00 Ebonie Burger XR FEMUR 2+ VW LEFT 2020-11-22 16:40:27 Misael Flowers [facility] XR FEMUR 2+ VW LEFT 2020-11-22 16:40:27 ReganMarek marieothy [facility] Operation 2020-11-22 05:00:00 Ebonie Burger KNEE WO CONTRAST CT 2020-10-18 14:30[facility] 2020-10-18 14:30[facility]51 [facility] Rem[facility] of [facility] device 2020-06-14 05:00:00 Ebonie Burger Post Op Promis 29 Survey 2020-05-23 00:00:00 [facility] Intramedullary nailing of femur 2020-04-28 06:00:00 Ebonie Burger Procedure<sup>1</sup> 1956-06-22 00:00:00 Ebonie Burger Colonoscopy Ebonie Morgan n Gallbladder operation<sup>2</sup> Ebonie Burger Assess fracture care<sup>2</sup> Ebonie Burger Hysterectomy Ebonie Morgan n Carpal tunnel release [facility] Hernia repair Ebonie Jones nn Parotidectomy [facility] Karen nn Encounters Start Date/Time End Date/Time Encounter Type Admission Type Attending Clinicians Care Facility Care Department Encounter ID Source 2022-09-16 10:51:41 Outpatient [facility] [id number] [facility] 2022-09-10 22:05:57 Outpatient [facility] [id number] [facility] 2022-09-07 14:02:57 Outpatient [facility] [id number] [facility] 2022-09-01 12:30:01 Outpatient [facility] [id number] [facility] 2022-08-13 14:59:21 Outpatient [facility] [id number] [facility] 2022-08-05 15:56:23 Outpatient [facility] [id number] [facility] 2022-07-31 10:42:45 Outpatient [facility] [id number] [facility] 2022-06-11 11:47:33 Outpatient [facility] [id number] [facility] 2022-04-23 16:38:22 Outpatient [facility] [id number] [facility] 2021-12-29 07:45:14 Outpatient [facility] [id number] [facility] 2021-03-10 10:27:15 Outpatient [facility] [id number] [facility] 2021-01-27 10:02:37 Outpatient [facility] [id number] [facility] 2021-01-10 08:59:27 Outpatient [facility] [id number] [facility] 2020-12-09 12:41:11 Outpatient SHONDA ZULUAGA [facility] [id number] [facility] 2020-12-09 11:48:25 Outpatient [facility] [id number] [facility] 2020-11-11 09:03:22 Outpatient [facility] [id number] [facility] 2020-11-11 09:03:22 Outpatient [facility] [id number] [facility] 2020-08-09 14:07:26 Outpatient [facility] [id number] [facility] 2020-08-01 15:12:43 Outpatient [facility] [id number] [facility] 2020-07-15 01:02:05 Outpatient MILLI ORDAZ [facility] [id number] [facility] 2024-07-05 09:17:06 2024-07-05 10:44:16 Outpatient Elective M[facility] [id number] [facility] 2024-03-29 13:35:00 2024-03-29 14:15:01 Outpatient [facility] [id number] [facility] 2024-03-29 13:30:00 2024-03-29 14:15:01 Office Visit Caprice Leos [facility] [id number] [facility] 2024-03-29 13:30:00 2024-03-29 14:15:01 Outpatient [facility] [id number] [facility] 2024-01-26 13:30:00 2024-01-26 13:30:00 Outpatient RICH FARRAR CAPRICE [facility] [id number] [facility] 2023 12:30:00 2023 12:30:00 Outpatient RICH FARRAR CAPRICE [facility] [id number] [facility] 2023-09-22 13:45:00 2023-09-22 15:01:00 Office Visit Caprice Leos [facility] PHYSICIAN S ORTHOPEDI CS - [place] [id number] [facility] 2023-09-01 10:45:00 2023-09-01 10:45:00 Outpatient CAPRICE LEOS [facility] [id number] [facility] 2023-08-13 10:15:00 2023-08-13 11:50:39 Office Visit Therese Zhang [place] Physician s [facility] [id number] [facility] 2023-08-11 13:45:00 2023-08-11 13:45:00 Outpatient CAPRICE LEOS [facility] [id number] [facility] 2023-08-04 15:00:00 2023-08-04 15:44:11 Clinical Support Mehdi Salinas [facility] PHYSICIAN S ORTHOPEDI CS - [place] [id number] [id number] [facility] 2023-08-04 15:00:00 2023-08-04 15:00:00 Outpatient [facility] [id number] [facility] 2023-07-21 13:20:00 2023-07-21 13:56:59 Clinical Support Mehdi Salinas [facility] PHYSICIAN S ORTHOPEDI CS - [place] 1.2.840.114 350.1.13.58 9.2.7.2.686 [id number] [facility] 2023-07-07 09:20:00 2023-07-07 10:00:22 Clinical Support Mehdi Salinas PHYSICIAN S ORTHOPEDI CS - [place] [id number] 350.1.13.58 [id number] [id number] [facility] 2023-06-24 10:31:00 2023-06-25 12:52:00 Inpatient CAPRICE LEOS [facility] [id number] [facility] 2023-06-24 11:45:00 2023-06-24 11:45:00 Outpatient CAPRICE LEOS [facility] [id number] [facility] 2023-05-28 13:15:00 2023-05-28 15:23:47 Outpatient BETSEY ONEAL [facility] [id number] [facility] 2023-05-28 12:30:00 2023-05-28 14:24:00 Office Visit Caprice Leos [facility] PHYSICIAN S ORTHOPEDI CS - [place] [id number] 350.1.13.58 [id number] [id number] [facility] 2023-05-28 12:10:00 2023-05-28 12:10:00 Outpatient [facility] [id number] [facility] 2023-05-17 14:00:00 2023-05-17 14:00:00 Outpatient DANIA CAMACHO [facility] [id number] [facility] 2023-04-05 13:30:00 2023-04-05 14:33:34 Office Visit Dania Camacho [facility] PHYSICIAN S ORTHOPEDI CS - [place] 1.2.840.114 350.1.13.58 [id number] [id number] [facility] 2023-02-26 12:30:00 2023-02-26 12:30:00 Outpatient [facility] [id number] [facility] 2023-02-26 12:30:00 2023-02-26 12:30:00 Office Visit Caprice Leos [facility] PHYSICIAN S ORTHOPEDI CS - [place] 1.2.840.114 350.1.13.58 9.2.7.2.686 [id number] [facility] 2023-02-04 10:15:00 2023-02-04 11:30:26 Office Visit Hanysage Therese [facility] PHYSICIAN S ORTHOPEDI CS - [place] 1.2.840.114 350.1.13.58 9.2.7.2.686 [id number] [facility] 2023-02-03 14:30:00 2023-02-03 14:30:00 Outpatient [facility] [id number] [facility] 2023-01-20 14:45:00 2023-01-20 16:13:24 Clinical Support Mehdi Salinas [facility] PHYSICIAN S ORTHOPEDI CS - [place] 1.2.840.114 350.1.13.58 9.2.7.2.686 [id number] [facility] 2023-01-12 21:54:00 2023-01-13 13:31:00 Outpatient CAPRICE LEOS [facility] [id number] [facility] 2023-01-12 14:45:00 2023-01-12 14:45:00 Outpatient CAPRICE LEOS [facility] [id number] [facility] 2022-12-25 09:45:00 2022-12-25 09:45:00 Outpatient [facility] [id number] [facility] 2022-12-14 15:10:00 2022-12-14 15:10:00 Ambulatory Pre-Reg [facility] [id number] Juanpablo Burger 2022-11-13 14:45:00 2022-11-13 15:54:51 Office Visit Caprice Leos [facility] PHYSICIAN S ORTHOPEDI CS - [place] 1.2.840.114 350.1.13.58 [id number] [id number] [facility] 2022-11-13 14:45:00 2022-11-13 14:45:00 Outpatient [facility] [id number] [facility] 2022-10-28 14:30:00 2022-10-28 14:30:00 Outpatient CAPRICE LEOS [facility] [id number] [facility] 2022-09-14 13:30:00 2022-09-14 14:17:59 Office Visit Caprice Leos [facility] PHYSICIAN S ORTHOPEDI CS - [place] 1.2.840.114 350.1.13.58 [id number] [id number] [facility] 2022-09-14 13:30:00 2022-09-14 13:30:00 Outpatient [facility] [id number] [facility] 2022-09-11 14:00:00 2022-09-11 14:00:00 Outpatient CAPRICE LEOS [facility] [id number] [facility] 2022-09-04 14:30:00 2022-09-04 14:30:00 Outpatient ROGER GALARZA [facility] [id number] [facility] 2022-09-02 14:30:00 2022-09-02 15:30:08 Office Visit Iggy Jeffery [facility] PHYSICIAN S ORTHOPEDI CS - [place] 1.2.840.114 350.1.13.58 [id number] [id number] [facility] 2022-08-27 16:26:00 2022-08-27 22:50:00 Bedded Outpatient [facility] [id number] Juanpablo Burger 2022-08-27 11:26:00 2022-08-27 17:50:00 Outpatient CAPRICE LEOS [id number] 2022-08-27 10:00:00 2022-08-27 10:00:00 Outpatient CAPRICE LEOS [facility] [id number] [facility] 2022-08-17 15:54:00 2022-08-18 04:59:00 Outpt Diag Services [facility] [place] [id number] Juanpablo head Tao 2022-08-07 11:00:00 2022-08-07 11:00:00 Outpatient JANICEDANIA [facility] [id number] [facility] 2022-08-05 13:45:00 2022-08-05 14:27:05 Office Visit Caprice Leos [facility] PHYSIC[facility] S ORTHOPEDI [facility] [id number] [facility] 2022-08-05 13:45:00 2022-08-05 13:45:00 Outpatient [facility] [id number] [facility] [facility] 2022-07-31 11:00:00 2022-07-31 11:30:27 Office Visit Dania Camacho [facility] 1 1.2.840.114 350.1.13.58 9.2.7.2.686 [id number] [facility] 2022-07-24 11:00:00 2022-07-24 11:00:00 Outpatient JANICEDANIA [facility] [id number] [facility] 2022-05-18 15:00:00 2022-05-19 04:59:59 Outpatient [facility] [place] [id number] Juanpablo Burger 2022-04-27 14:36:00 2022-04-28 05:59:00 Outpt Diag Services [facility] [place] [id number] Juanpablo Burger 2022-02-11 00:00:00 2022-02-11 00:00:00 Orders Only Doctor Unassigned, Tidioute [facility] 1.2.840.114 350.1.13.10 4.2.7.2.686 [id number] [facility] 2022-01-12 10:15:00 2022-01-12 10:15:00 Outpatient SHONDA ZULUAGA [facility] [id number] [facility] 2021-12-29 10:00:00 2021-12-29 10:50:58 Outpatient [facility] [id number] [facility] 2021-12-29 10:00:00 2021-12-29 10:50:58 Office Visit Shonda Zuluaga [facility] [address] 1.2.840.114 350.1.13.58 9.2.7.2.686 [id number] [facility] 2021-12-19 11:30:00 2021-12-19 12:13:34 Office Visit Pilar Pelaez [facility] 1 1.2.840.114 350.1.13.58 9.2.7.2.686 [id number] [facility] 2021-12-12 12:00:00 2021-12-12 12:00:00 Outpatient PILAR HUTTON [facility] [id number] [facility] 2021-12-10 07:37:00 2021-12-10 09:34:00 Outpatient R ROME SERRANO [facility] OPH [id number] [facility] 2021-12-10 07:37:00 2021-12-10 09:34:00 Hospital Encounter Rome Serrano [facility] 1.2.840.114 350.1.13.10 4.2.7.2.686 [id number] [facility] 2021-12-10 08:25:00 2021-12-10 08:58:00 Surgery Rome Serrano [facility] 1.2.840.114 350.1.13.10 4.2.7.2.686 [id number] [facility] 2021-12-05 11:00:00 2021-12-05 11:41:03 Office Visit Pilar Pelaez [facility] 1 1.2.840.114 350.1.13.58 9.2.7.2.686 [id number] [facility] 2021-12-01 12:30:00 2021-12-01 12:30:00 Outpatient PILAR PELAEZ [facility] [id number] [facility] 2021-11-26 07:26:00 2021-11-26 10:11:00 Hospital Encounter Rome Serrano [facility] 1.2.840.114 350.1.13.10 4.2.7.2.686 [id number] [facility] 2021-11-26 07:26:00 2021-11-26 10:11:00 Outpatient R ROME SERRANO [facility] OPH [id number] [facility] 2021-11-26 08:25:00 2021-11-26 09:01:00 Surgery Rome Serrano [facility] 1.2.840.114 350.1.13.10 4.2.7.2.686 [id number] [facility] 2021-11-24 09:15:00 2021-11-24 09:15:00 Outpatient R ROME SERRANO [facility] [id number] [facility] 2021-11-21 16:00:00 2021-11-21 16:15:00 Superintendent Distribution Visit Pob, Adc Lab Main Rome Serrano [facility] 1.2.840.114 350.1.13.10 4.2.7.2.686 [id number] [facility] 2021-11-21 16:00:00 2021-11-21 16:00:00 Outpatient ROME MCINTYRE [facility] [id number] [facility] 2021-11-21 00:00:00 2021-11-21 00:00:00 Orders Only Doctor Unassigned, Tidioute [facility] 1.2.840.114 350.1.13.10 4.2.7.2.686 [id number] [facility] 2021-11-12 14:25:00 2021-11-13 04:59:59 Outpatient Poojao imelda [facility] Time Share [id number] Juanpablo Burger 2021-11-11 10:45:00 2021-11-11 11:27:45 Outpatient [facility] [id number] [facility] 2021-11-11 10:45:00 2021-11-11 11:27:29 Office Visit Caprice Leos [facility] 1.2.840.114 350.1.13.58 9.2.7.2.686 [id number] [facility] 2021-10-13 10:15:00 2021-10-13 10:28:36 Office Visit Shonda Zuluaga [facility] [address] 1.2.840.114 350.1.13.58 9.2.7.2.686 [id number] 1 [id number] [facility] 2021-10-13 10:00:00 2021-10-13 10:28:36 Outpatient [facility] [id number] [facility] 2021-08-11 10:15:00 2021-08-11 10:15:00 Office Visit Shonda Zuluaga [facility]TP [address] 1.2.840.114 350.1.13.58 9.2.7.2.686 [id number] 1 [id number] [facility] 2021-07-14 10:15:00 2021-07-14 10:36:18 Office Visit KelleDee hurstisabela [facility] [address] 1.2.840.114 350.1.13.58 9.2.7.2.686 [id number] 1 [id number] [facility] 2021-06-30 10:38:00 2021-07-01 04:59:00 Day Surgery nullFlavo r [facility] [id number] Juanpablo head [place] 2021-06-30 05:38:00 2021-06-30 23:59:00 Outpatient MISAEL FLOWERS [facility] [id number] [facility] 2021-06-30 07:45:00 2021-06-30 07:45:00 Outpatient MISAEL FLOWERS [facility] [id number] [facility] 2021-06-17 17:08:00 2021-06-18 04:59:00 Outpt Diag Services [facility] Outpatient [facility] [id number] Juanpablo head [place] 2021-06-02 11:15:00 2021-06-02 13:07:56 Office Visit Shonda Zuluaga [facility] [address] 1.2.840.114 350.1.13.58 9.2.7.2.686 [id number] 1 [id number] [facility] 2021-03-03 11:00:00 2021-03-03 11:27:22 Office Visit Shonda Zuluaga [facility] [address] 1.2.840.114 350.1.13.58 9.2.7.2.686 [id number] 1 [id number] [facility] 2021-01-10 00:00:00 2021-01-10 00:00:00 [facility] [address] 1.2.840.114 350.1.13.58 9.2.7.2.686 [id number] 1 [id number] [facility] 2020-12-16 00:00:00 2020-12-16 00:00:00 [facility] 1.2.840.114 350.1.13.58 9.2.7.2.686 [id number] 1 [id number] [facility] 2020-12-09 11:02:10 2020-12-09 12:40:28 Office Visit Shonda Zuluaga [facility] 1.2.840.114 350.1.13.58 9.2.7.2.686 [id number] 1 [id number] [facility] 2020-11-22 23:25:00 2020-11-25 20:05:00 Observatio n nullFlavo r [facility] [id number] Juanpablo head [place] 2020-11-22 18:25:00 2020-11-25 15:05:00 Outpatient MISAEL FLOWERS [facility] [id number] [facility] 2020-11-25 00:00:00 2020-11-25 00:00:00 Orders Sonali Sky Diana [facility] 1.2.840.114 350.1.13.58 9.2.7.2.686 [id number] 1 [id number] [facility] 2020-11-22 08:49:54 2020-11-22 12:19:54 EXT MHH OP AchMisael marie EXT MSRDP LOCATION 1.2.840.114 350.1.13.58 9.2.7.2.686 [id number] 1 [id number] [facility] 2020-11-22 08:49:54 2020-11-22 12:19:54 EXT MHH OP ACHMISAEL MARIE EXT MSRDP LOCATION 1.2.840.114 350.1.13.58 9.2.7.2.686 [id number] 1 [id number] [facility] 2020-11-16 00:00:00 2020-11-16 00:00:00 Chace Garcia [facility] 1.2.840.114 350.1.13.58 9.2.7.2.686 [id number] 1 [id number] [facility] 2020-11-14 00:00:00 2020-11-14 00:00:00 Chace Garcia [facility] 1.2.840.114 350.1.13.58 9.2.7.2.686 [id number] 1 [id number] [facility] 2020-11-12 10:40:58 2020-11-12 12:20:13 Office Visit Caprice Leos [facility] 1.2.840.114 350.1.13.58 9.2.7.2.686 [id number] 2 [id number] [facility] 2020-11-04 07:37:07 2020-11-04 09:13:02 Office Visit Shonda Zuluaga [facility] 1.2.840.114 350.1.13.58 9.2.7.2.686 [id number] 1 [id number] [facility] 2020-11-04 00:00:00 2020-11-04 00:00:00 Refill Patricia Alexander Stephanie [facility] 1.2.840.114 350.1.13.58 9.2.7.2.686 [id number] 1 [id number] [facility] 2020-10-22 00:00:00 2020-10-22 00:00:00 Orders Sonali Sky Diana [facility] 1.2.840.114 350.1.13.58 9.2.7.2.686 [id number] 1 [id number] [facility] 2020-10-18 13:30:00 2020-10-19 04:59:00 Outpt Diag Services nullFlavo r [facility] [place] [id number] Juanpablo Burger 2020-10-19 00:00:00 2020-10-19 00:00:00 Chace Garcia [facility] 1.2.840.114 350.1.13.58 9.2.7.2.686 [id number] 1 [id number] [facility] 2020-10-18 00:00:00 2020-10-18 00:00:00 EXT MHH OP EXT MSRDP LOCATION 1.2.840.114 350.1.13.58 9.2.7.2.686 [id number] [facility] 2020-10-18 00:00:00 2020-10-18 00:00:00 EXT MHH OP EXT MSRDP LOCATION 1.2.840.114 350.1.13.58 9.2.7.2.686 [id number] 0 [id number] [facility] 2020-10-11 00:00:00 2020-10-11 00:00:00 Orders Sonali Sky Diana [facility] 1.2.840.114 350.1.13.58 9.2.7.2.686 [id number] 1 [id number] [facility] 2020-10-11 00:00:00 2020-10-11 00:00:00 Orders Sonali Sky Diana [facility] 1.2.840.114 350.1.13.58 9.2.7.2.686 [id number] 1 [id number] [facility] 2020-10-09 10:48:31 2020-10-09 11:58:44 Office Visit Milli Ordaz [facility] 1.2.840.114 350.1.13.58 9.2.7.2.686 [id number] 1 [id number] [facility] 2020-10-08 00:00:00 2020-10-08 00:00:00 Orders Only Sonali Brandon Diana [facility] 1.2.840.114 350.1.13.58 9.2.7.2.686 [id number] 1 [id number] [facility] 2020-09-22 00:00:00 2020-09-22 00:00:00 Refill Chace Ramirez [facility] 1.2.840.114 350.1.13.58 9.2.7.2.686 [id number] 1 [id number] [facility] 2020-08-29 00:00:00 2020-08-29 00:00:00 Refill Milli Ordaz [facility] 1.2.840.114 350.1.13.58 9.2.7.2.686 [id number] 1 [id number] [facility] 2020-08-07 09:59:07 2020-08-07 11:25:55 Office Visit Milli Ordaz [facility] 1.2.840.114 350.1.13.58 9.2.7.2.686 [id number] 1 [id number] [facility] 2020-08-07 00:00:00 2020-08-07 00:00:00 Orders Only Aleksandr Sonali Brandon Sonali [facility] 1.2.840.114 350.1.13.58 9.2.7.2.686 [id number] 1 [id number] [facility] 2020-06-14 11:19:00 2020-06-15 04:59:00 Day Surgery [facility] [id number] [facility] 2020-06-14 06:19:00 2020-06-14 23:59:00 Outpatient MILLI ORDAZ [facility] [id number] [facility] 2020-06-05 11:00:00 2020-06-05 11:00:00 Appointmen t; CHACE RAMIREZ P.A. GONZALES, JOANNAH, P.A. [facility] Orthopedics [facility] [id number] [place] Physici ans 2020-05-22 09:15:00 2020-05-22 09:15:00 Appointmen t; MILLI ORDAZ M.D. CHOO, ANDREW, M.D. [facility] UTP [id number] [place] Physici ans 2020-04-27 14:01:34 2020-05-03 23:00:00 Inpatient nullFlavo r [facility] [id number] Juanpablo Burger 2020-04-28 12:00:00 2020-04-28 12:00:00 Appointmen t; MILLI ORDAZ M.D. CHOO, ANDREW, M.D. [facility] [id number] [place] Physici ans 2020-04-15 14:30:00 2020-04-16 05:59:59 Outpatient nullFlavo r [facility] [id number] Juanpablo Burger 2020-03-29 16:24:00 2020-03-30 05:59:00 Outpt Diag Services nullFlavo r [facility] [place] [id number] Juanpablo Burger 2020-01-01 16:00:00 2020-01-02 05:59:59 Outpatient nullFlavo r [facility] [id number] Juanpablo Burger 2019-12-19 13:29:00 2019-12-20 04:59:00 Outpt Diag Services nullFlavo r [facility] [place] [id number] Juanpablo Burger 2019-12-06 14:40:00 2019-12-07 04:59:59 Outpatient nullFlavo r [facility] [id number] Juanpablo Burger Results Test Description Test Time Test Comments Results Result Co mments Source [facility]2023-07-06 18:26:00* Test Item Value Reference Range Interpretation Comme nts Glucose POC (test code = Glucose POC) 191 70-99 [facility]KttjliyPABNDRGMJ2324-94-27 17:44:00* Test Item Value Reference Range Interpretation Comme nts Albumin Lvl (test code = Albumin Lvl) 3.5 3.5-5.0 [facility]SLKUQOBUYN9713-59-76 17:44:00* Test Item Value Reference Range Interpretation Comme [facility] Segs (test code = Segs) 48.2 45.0-75.0 [facility] CenterRaxgqxnSXLAYZ4705-14-66 21:34:39* Test Item Value Reference Range Interpretation Comme [facility] RADRPT (test code = RADRPT) PROCEDURE INFORMATION: Exam: US Retroperitoneal; Complete; Kidneys and Bladder Exam date and time: 04/27/2022 8:57 AM Age: 66 years old Clinical indication: Calculus of kidney; Additional info: /uti, renal stone TECHNIQUE: Imaging protocol: Real-time ultrasound of the retroperitoneum with image documentation. Complete exam focused on the kidneys and bladder. COMPARISON: RETROPERITONEAL COMPLETE US 03/29/2020 11:29 AM FINDINGS: Right kidney: Measures 9.3 cm.Increased cortical echogenity. There is no hydronephrosis, nephrolithiasis. Left kidney: Measures 10.5 cm.Increased cortical echogenity. There is no hydronephrosis, nephrolithiasis. There is 2.2 cm left parapelvic renal cyst. Intraperitoneal space: No ascites. Urinary bladder: Unremarkable. IMPRESSION: 1. Simple left parapelvic renal cyst. 2. Increased renal cortical echogenicity, likely due to medical renal disease. Sally Clark MD On 04/27/2022 15:33:40; [id number] [facility] CenterOxspuvsGQTSXF3815-74-45 18:07:04* Test Item Value Reference Range Interpretation Comme [facility] RADRPT (test code = RADRPT) PROCEDURE INFORMATION: Exam: XR Abdomen Exam date and time: 04/27/2022 9:22 AM Age: 66 years old Clinical indication: Calculus of kidney; Additional info: /n20.0 n39.0 TECHNIQUE: Imaging protocol: Radiologic exam of the abdomen. Views: Frontal supine view of the abdomen. 1 View. COMPARISON: CR ABDOMEN AP DX 03/29/2020 10:40 AM FINDINGS: Gastrointestinal tract: There is a non-obstructive bowel gas pattern. There is no abnormal dilatation of bowel loops. There is no pneumatosis or mass effect. 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 Bones/joints: Unremarkable. Soft tissues: No abnormal radiopaque densities. IMPRESSION: 1. No acute findings. 2. Nonvisualization of previously noted left-sided the flow thigh assesses 3. 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 Cheryl Velasco MD On 04/27/2022 12:06:20; [id number] [facility] GLUCOSE (AUTOMATED)2021-12-10 12:54:45* Test Item Value Reference Range Interpretation Comme nts POCT GLU (test code = 4312092460) 151 mg/dL 70-110 H Lab Interpretation (test cod e = 98815-2) Abnormal [facility] GLUCOSE (AUTOMATED)2021-12-10 12:54:45* Test Item Value Reference Range Interpretation Comme nts POCT GLU (test code = 8219831856) 151 mg/dL 70-110 H Lab Interpretation (test cod e = 11527-4) Abnormal [facility] GLUCOSE (AUTOMATED)2021-11-26 13:01:46* Test Item Value Reference Range Interpretation Comme nts POCT GLU (test code = 3221888800) 115 mg/dL 70-110 H Lab Interpretation (test cod e = 68774-8) Abnormal [facility] GLUCOSE (AUTOMATED)2021-11-26 13:01:46* Test Item Value Reference Range Interpretation Comme nts POCT GLU (test code = 7220572520) 115 mg/dL 70-110 H Lab Interpretation (test cod e = 42978-2) Abnormal [facility] GLUCOSE(AGE >30DAYS)2021-11-26 12:55:00* Test Item Value Reference Range Interpretation Comme nts POCT Glu (age>30days) (test code = 3342) 115 mg/dL 70-110 A Lab Interpretation (test cod e = 88502-4) Abnormal [facility] GLUCOSE(AGE >30DAYS)2021-11-26 12:55:00* Test Item Value Reference Range Interpretation Comme nts POCT Glu (age>30days) (test code = 3342) 115 mg/dL 70-110 A Lab Interpretation (test cod e = 71349-2) [facility]normal [facility] AYLWBNL9821-47-04 15:13:00* Test Item Value Reference Range Interpretation Comme nts Result 2 (Urine Culture) (test code = Result 2 (Urine Culture)) See Result Comment [facility] AND IUCSW5711-55-84 15:02:00* Test Item Value Reference Range Interpretation Comme nts POC UA Color (test code = POC UA Color) Yellow *NA*(11/12/21 10:02 AM) [facility] [id number] 11:46:00* Test Item Value Reference Range Interpretation Comme nts Glucose Lvl (test code = Glucose Lvl) 158 70-99 [facility] HospitalIyklbkwQASGNBPSDH8675-20-41 11:46:00* Test Item Value Reference Range Interpretation Comme nts WBC (test code = WBC) 6.7 3.7-10.4 [facility]2021-10-04 10:45:00* Test Item Value Reference Range Interpretation Comme nts Glucose Lvl (test code = Glucose Lvl) 131 70-99 [facility] HospitalUovmxioOJEZLKDEGB1827-33-11 10:45:00* Test Item Value Reference Range Interpretation Comme nts WBC (test code = WBC) 8.3 3.7-10.4 [facility]2021-10-03 08:12:00* Test Item Value Reference Range Interpretation Comme nts Glucose Lvl (test code = Glucose Lvl) 225 70-99 [facility] HospitalDdeemauNPCTEUTPWN8395-90-13 08:12:00* Test Item Value Reference Range Interpretation Comme nts Segs (test code = Segs) 75.2 45.0-75.0 [facility] LIARN8592-21-28 09:30:00* Test Item Value Reference Range Interpretation Comme nts Glucose Lvl (test code = Glucose Lvl) 234 70-99 [facility] HospitalNpoxgsyXXEIUUIOGC6956-90-61 09:30:00* Test Item Value Reference Range Interpretation Comme nts Segs (test code = Segs) 84.8 45.0-75.0 [facility] Gbythdbwb0506-54-18 13:42:00* Test Item Value Reference Range Interpretation Comme nts Culture: Anaerobic (test code = Culture: Anaerobic) No Anaerobes Isolated After 5 Days [facility] HospitalGram Stain Fndxpw3191-12-24 13:42:00* Test Item Value Reference Range Interpretation Comme nts Gram Stain Report (test code = Gram Stain Report) Few Wbc'S; Many Rbc'S No Organisms Seen [facility] HospitalCulture: Aspirate/Body Fluid/Cvcfot8009-66-35 13:42:00* Test Item Value Reference Range Interpretation Comme nts Culture: Aspirate/Body Fluid /Tissue (test code = Culture: Aspirate/Body Fluid/Tissue) No Growth [facility] SOOWEKF7776-27-09 11:46:00* Test Item Value Reference Range Interpretation Comme nts ABO/Rh (test code = ABO/Rh) O POS [facility] CenterPpnsotnAPKUQAMLUW1676-97-59 11:46:00* Test Item Value Reference Range Interpretation Comme nts Eosinophils (test code = Eosinophils) 0.9 <=4.0 [facility] AOMBDOODL4229-66-65 11:46:00* Test Item Value Reference Range Interpretation Comme nts Hgb A1C (test code = Hgb A1C) 6.4 [facility] APVHRQG5384-66-17 13:16:00* Test Item Value Reference Range Interpretation Comme nts Antibody Scrn (test code = Antibody Scrn) Negative (06/14/20 8:16 AM) [facility] CenterFecmarrCCTHFZJJZN9007-35-90 13:16:00* Test Item Value Reference Range Interpretation Comme nts Segs (test code = Segs) 50.6 45.0-75.0 [facility] HospitalIdhtbilKMGCSRJRVS0284-03-70 12:00:00* Test Item Value Reference Range Interpretation Comme nts Coronavirus (COVID-19) DIANELYS (test code = Coronavirus (COVID-19) DIANELYS) Not Detected (06/14/20 7:00 AM) [facility][U] XRAY FEMUR 2 VWS LEFT [id number] 10:25:00Images acquired, not reported on this accession number.DE PhysiciansCHEM PANEL 2020-04-30 06:52:00* Test Item Value Reference Range Interpretation Comme nts Glucose Lvl (test code = Glucose Lvl) 317 70-99 [facility] CenterXmqadpqGIISHYFCCA2227-04-72 06:52:00* Test Item Value Reference Range Interpretation Comme nts Segs (test code = Segs) 79.1 45.0-75.0 [facility] HospitalCHEM PKAYS5066-43-64 07:05:00* Test Item Value Reference Range Interpretation Comme nts Glucose Lvl (test code = Glucose Lvl) 291 70-99 [facility] HospitalRshwtvoZOALRBYFRP8817-21-70 07:05:00* Test Item Value Reference Range Interpretation Comme nts Segs (test code = Segs) 90.7 45.0-75.0 [facility] SNOWI2025-62-54 10:40:00* Test Item Value Reference Range Interpretation Comme nts Glucose Lvl (test code = Glucose Lvl) 158 70-99 [facility] CenterHrfjwmeSCAGSZCZTG4199-49-11 10:40:00* Test Item Value Reference Range Interpretation Comme nts WBC (test code = WBC) 9.1 3.7-10.4 [facility] XJHEDRIPZ4989-90-88 10:40:00* Test Item Value Reference Range Interpretation Comme nts Hgb A1C (test code = Hgb A1C) 6.4 [facility] FMSUL4103-38-17 17:51:00* Test Item Value Reference Range Interpretation Comme nts Lactic Acid Lvl (test code = Lactic Acid Lvl) 2.5 0.5-2.2 [facility] HospitalDotnuxsLTGHDLNUSI7541-53-43 17:51:00* Test Item Value Reference Range Interpretation Comme nts Coronavirus (COVID-19) DIANELYS (test code = Coronavirus (COVID-19) DIANELYS) Not Detected (04/27/20 11:51 AM) [facility] WZFSRXD5047-32-66 14:32:00* Test Item Value Reference Range Interpretation Comme nts ABO/Rh (test code = ABO/Rh) O POS [facility] Actionalityco[facility] hospitalDigitalVision QVUYZ3066-22-23 14:29:00* Test Item Value Reference Range Interpretation Comme nts Glucose Lvl (test code = Glucose Lvl) 192 70-99 [facility] CenterWzgadzoEMNZMFDOUJ0906-65-87 14:29:00* Test Item Value Reference Range Interpretation Comme nts WBC X 10x3 (test code = WBC X 10x3) 8.1 3.7-10.4 [facility] AND SVHXG0944-87-27 18:53:00* Test Item Value Reference Range Interpretation Comme nts UA Color (test code = UA Color) YELLOW [facility]
--- NOTE | 2024-11-14 20:27 | RAD REPORT ---
EXAMINATION: Abdomen Pelvis Wo Contrast CLINICAL INDICATION: Female, 69 years old.stone protocol;Flank pain TECHNIQUE: CT abdomen and pelvis was performed, without IV contrast, as per department protocol. Axia l, sagittal and coronal reconstructions were obtained. One or more of the following dose reduction techniques were used: Automated exposure control, adjustment of the mA and/or kV according to the pat ient size, and/or iterative reconstruction. Unless otherwise specified, incidental findings do not require dedicated imaging follow-up. [id number]. IV CONTRAST: Not administered. COMPARISON: 01/14/2022 FINDINGS: The lack of intravenous contrast limits the sensitivity of this exam for evaluation of solid visceral organs, vascular structures, and retroperitoneum. LOWER CHEST: No acute process identified.No significant pericardial effusion. Coronary artery calcifi cations present.Small hiatal hernia. UPPER GI: Partial gastrectomy. LIVER: No significant focal abnormality. GALLBLADDER/BILE DUCTS: Cholecystectomy. Moderate extrahepatic biliary ductal dilatation. This could be secondary to the post-cholecystectomy state. Recommend correlation with LFT's. If abnormal, consider MRCP for further evaluation. ? PANCREAS: No mass, ductal dilation, or elida-pancreatic fluid. SPLEEN: Unremarkable. ADRENALS: Benign right adrenal nodule which is unchanged measuring 2.7 cm and compatible with an rhys nicanor. KIDNEYS AND URETERS: Moderate right-sided hydroureteronephrosis secondary to a 5 mm stone in the righ t distal ureter.Left renal sinus cysts.Nonobstructing renal calculi. ABDOMINAL AORTA AND OTHER VESSELS: Mild atherosclerotic changes. Unchanged partially calcified spleni c artery aneurysms. PERITONEUM: No abnormal free fluid. No free air. LYMPH NODES: No pathologic lymphadenopathy. ABDOMINAL WALL: Prior ventral hernia repair. SMALL BOWEL/COLON: Small bowel has normal course and caliber. No colonic wall thickening or pericolon ic inflammatory changes.Normal appendix. Mild diverticulosis without diverticulitis. URINARY BLADDER: Decompressed, not well assessed. REPRODUCTIVE ORGANS: Uterus surgically absent. No adnexal abnormality. MUSCULOSKELETAL: No acute or suspicious osseous abnormality. ADDITIONAL FINDINGS: None. IMPRESSION: Moderate right-sided hydroureteronephrosis secondary to a 5 mm stone in the right distal ureter.
[2024-11-14] MEDS ORDERED: NA CHLORIDE 0.9% 1,000 ML ONE (20:37)
[2024-11-14] MEDS ORDERED: KETOROLAC 30 MG/ML INJ ONE (20:37)
[2024-11-14 20:56] LABS: Absolute Lymphocytes (CBC) 1.5 K/uL (0.7-4.9); Hematocrit 41.6 % (36.0-45.0); Hemoglobin 14.0 g/dL (12.0-15.0); MCH 32.7 pg (27.0-35.0); MCHC 33.7 g/dL (32.0-36.0); MCV 97.0 fL (80-100); MPV 8.5 fL (7.6-11.3); Nucleated RBC Absolute Count 0.0 (0-0); Nucleated Red Blood Cells % 0.1 % (0-0); RBC Red Blood Cell Count 4.29 M/uL (3.86-4.86); White Blood Count 12.60 thou/uL (4.3-10.9)
[2024-11-14 21:17] LABS: ALT/SGPT 49.0 U/L (13-56); AST/SGOT 34.0 U/L (15-37); Albumin 4.1 g/dL (3.4-5.0); Albumin/Globulin Ratio 1.3 (1.1-1.8); Alkaline Phosphatase 64.0 U/L (45-117); Anion Gap 10.5 mEq/L (5.0-15.0); BUN Blood Urea Nitrogen 19.0 mg/dL (7-18); Globulin 3.2 g/dL (2.3-3.5); Glucose Level 146.0 mg/dL (74-106); Lipase 16.0 U/L (13-75); Potassium 3.5 mEq/L (3.5-5.1)
[2024-11-14 21:20] LABS: Sqamous Epithelial None Seen /HPF (None Seen); Urine Micro Reflex YN NO BILL MICROSCOPIC
--- NOTE | 2024-11-14 21:42 | EDPHYS ---
Physician Documentation [facility] Name: Amber Ward Age: 69 yrs Sex: Female : 1955 Arrival Date: 11/14/2024 Time: 19:01 Bed 24 Private MD: ED Physician Radha Guzman HPI: 11/14 20:00 This 69 yrs old Female presents to ER via Ambulatory with complaints of Abdominal Pain, sp3 Back Pain, Leg Pain, Urinary Problem. 20:00 69-year-old female with history of hyperlipidemia, hypertension, prior kidney stones sp3 now presents to the ED with hematuria off and on for the last 4 days with worsening left flank and suprapubic pain today. Patient sees Dr. Cox for PCP. She denies any fever, chest pain, upper back pain, vomiting, diarrhea, rash, bleeding elsewhere, or any other signs or symptoms on ROS at this time.. Historical: - Immunization history:: Adult Immunizations up to date. - Infectious Disease History:: Denies. - Social history:: Smoking status: Patient denies any tobacco usage or history of. ROS: 20:03 Constitutional: Negative for fever, chills, and weight loss, Eyes: Negative for injury, sp3 pain, redness, and discharge, Neck: Negative for injury, pain, and swelling, Cardiovascular: Negative for chest pain, palpitations, and edema, Respiratory: Negative for shortness of breath, cough, wheezing, and pleuritic chest pain, MS/Extremity: Negative for injury and deformity, Skin: Negative for injury, rash, and discoloration, Neuro: Negative for headache, weakness, numbness, tingling, and seizure, Psych: Negative for depression, anxiety, suicide ideation, homicidal ideation, and hallucinations, Allergy/Immunology: Negative for hives, rash, and allergies, Endocrine: Negative for neck swelling, polydipsia, polyuria, polyphagia, and marked weight changes, Hematologic/Lymphatic: Negative for swollen nodes, abnormal bleeding, and unusual bruising, 20:03 All other systems are negative, Exam: 20:03 Constitutional: This is a well developed, well nourished patient who is awake, alert, sp3 and in no acute distress. Head/Face: Normocephalic, atraumatic. Eyes: Pupils equal round and reactive to light, extra-ocular motions intact. Lids and lashes normal. Conjunctiva and sclera are non-icteric and not injected. Cornea within normal limits. Periorbital areas with no swelling, redness, or edema. ENT: Nares patent. No nasal discharge, no septal abnormalities noted. External auditory canals are clear. Oropharynx with no redness, swelling, or masses, exudates, or evidence of obstruction, uvula midline. Mucous membranes moist. Neck: Trachea midline, no thyromegaly or masses palpated, and no cervical lymphadenopathy. Supple, full range of motion without nuchal rigidity, or vertebral point tenderness. No Meningismus. Chest/axilla: Normal chest wall appearance and motion. Nontender with no deformity. No lesions are appreciated. Cardiovascular: Regular rate and rhythm with a normal S1 and S2. No gallops, murmurs, or rubs. Normal PMI, no JVD. No pulse deficits. Respiratory: Lungs have equal breath sounds bilaterally, clear to auscultation and percussion. No rales, rhonchi or wheezes noted. No increased work of breathing, no retractions or nasal flaring. Back: No spinal tenderness. No costovertebral tenderness. Full range of motion. Skin: Warm, dry with normal turgor. Normal color with no rashes, no lesions, and no evidence of cellulitis. MS/ Extremity: Pulses equal, no cyanosis. Neurovascular intact. Full, normal range of motion. Neuro: Awake and alert, GCS 15, oriented to person, place, time, and situation. Cranial nerves II-XII grossly intact. Motor strength 5/5 in all extremities. Sensory grossly intact. Cerebellar exam normal. Normal gait. Psych: Awake, alert, with orientation to person, place and time. Behavior, mood, and affect are within normal limits. 20:03 Abdomen/GI: Patient has suprapubic pain to palpation. Left CVA tenderness also noted. Patient has gross hematuria on her urinalysis., Vital Signs: 19:13 BP 154 / 81; Pulse 72; Resp 17; Temp 97.8; Pulse Ox 100% ; Weight 81.19 kg; Height 5 mf3 ft. 2 in. ; Pain 6/10; 21:12 BP 151 / 86; Pulse 68; Resp 16; Pulse Ox 100% on R/A; jb4 22:00 BP 158 / 82; Pulse 66; Resp 16; Pulse Ox 100% on R/A; jb4 19:13 Body Mass Index 32.74 (81.19 kg, 157.48 cm) mf3 19:13 Pain Scale: Adult mf3 MDM: 19:11 Medical Screening Exam initiated sp3 20:04 Data reviewed: vital signs, nurses notes, old medical records, lab test result(s), sp3 radiologic studies. ED course: 69-year-old female with suprapubic pain and left flank pain. Differential diagnosis includes UTI/pyelonephritis spectrum, ureterolithiasis/kidney stone spectrum, other bladder pathology, other intra-abdominal pathology including GI and MANAGER TRACK. Workup will include CT scan of the abdomen pelvis noncontrast stone protocol, general labs, UA and general supportive care. Disposition pending workup and patient course.. 21:29 ED course: This patient has 5 mm kidney stone in the right distal ureter. Creatinine at sp3 1.1 and WBC count of 12K, and WBCs and RBCs seen on urine analysis. I believe patient may have an early infection. I have discussed pros and cons of admission versus outpatient treatment. I have offered transfer to [facility] in [place] for urology evaluation and continued IV antibiotics and pain control. Patient declined stating that she has a urologist at [facility]. She elects to be discharged home after 1 dose of IV antibiotics and she will follow-up with their office tomorrow. She understands that she may return here if she changes her mind. Vital signs are normal and her pain is now controlled.. 11/14 19:47 Order name: CBC with Diff; Complete Time: 21:04 sp3 11/14 19:47 Order name: CMP; Complete Time: 21:22 sp3 11/14 19:47 Order name: Lipase; Complete Time: 21:22 sp3 11/14 21:10 Order name: UA W/Microscopic; Complete Time: 21:22 EDMS 11/14 19:47 Order name: CT Abd/Pelvis - Without Contrast; Complete Time: 20:28 sp3 11/14 19:47 Order name: IV Saline Lock; Complete Time: 20:32 sp3 11/14 19:47 Order name: Labs collected and sent; Complete Time: 20:32 sp3 Administered Medications: 20:45 Drug: TORadol - Ketorolac IVP 15 mg IVP once Route: IVP; Site: right antecubital; jb4 21:15 Follow up: Response: No adverse reaction jb4 20:45 Drug: NS 0.9% IV 1000 ml IV at 1 bolus Per protocol; to be given as a bolus over 60 jb4 minutes Route: IV; Rate: 1 bolus; Site: right antecubital; 21:45 Follow up: Response: No adverse reaction; IV Status: Completed infusion; IV Intake: jb4 1000ml 22:14 Drug: morphine IVP or IV 4 mg IVP once over 4 mins Route: IVP; Infused Over: 4 mins; jb4 Site: right antecubital; 22:47 Follow up: Response: No adverse reaction; Marked relief of symptoms; Pain is decreased jb4 22:14 Drug: Ondansetron IVP 4 mg IVP once; over 2 minutes Route: IVP; Site: right antecubital;jb4 22:47 Follow up: Response: No adverse reaction jb4 22:18 Drug: levofloxacin IVPB 500 mg 100 ml IVPB once over 60 mins Volume: 100 ml; Route: jb4 IVPB; Infused Over: 60 mins; Site: right antecubital; Disposition Summary: 11/14/24 21:41 Discharge Ordered Condition: Stable sp3 Diagnosis - Ureterolithiasis, kidney stone, right flank pain, UTI sp3 Followup: sp3 - With: Private Physician - When: Upon discharge from the Emergency Department - Reason: Continuance of care Discharge Instructions: - Discharge Summary Sheet sp3 - Kidney Stones sp3 - Urinary Tract Infection, Adult sp3 Forms: - Medication Reconciliation Form sp3 - Antibiotic Education sp3 - Prescription Opioid Use sp3 - Patient Portal Instructions sp3 - Leadership Thank You Letter sp3 Prescriptions: - Flomax 0.4 mg Oral capsule - take 1 capsule ORAL route daily; 5 capsule; Refills: 0, Product Selection sp3 Permitted - levofloxacin 500 mg Oral tablet - take 1 tablet ORAL route once daily for 6 days; 6 tablet; Refills: 0, Product sp3 Selection Permitted Signatures: Dispatcher [employer] Alphonso Boyer RN RN jb4 Radha Guzman MD MD sp3 Laureen Stein RN RN mf3 Corrections: (The following items were deleted from the chart) 19:19 19:19 PMHx: cholesterol meds; mf3 mf3 19:19 19:19 PMHx: Hyperlipidemia; mf3 mf3 19:19 19:19 PSHx: Cholecystectomy; mf3 mf3 19:19 19:19 PSHx: hysterectomy; mf3 mf3 19:47 19:47 CBC+H.LAB.BRZ ordered. EDMS EDMS 19:47 19:47 COMPREHENSIVE METABOLIC PANEL+C.LAB.BRZ ordered. EDMS EDMS 19:47 19:47 LIPASE+C.LAB.BRZ ordered. EDMS EDMS 19:47 19:47 Abdomen Pelvis Wo Con+CT.RAD.BRZ ordered. EDMS EDMS 21:10 19:47 UA Rfx Rambo Cult if indicated+U.LAB.BRZ ordered. EDMS EDMS
--- NOTE | 2024-11-14 21:42 | ER ---
Nurse's Notes [facility] Name: Amber Ward Age: 69 yrs Sex: Female : 1955 Arrival Date: 11/14/2024 Time: 19:01 Bed 24 Private MD: Diagnosis: Ureterolithiasis, kidney stone, right flank pain, UTI Presentation: 11/14 19:13 Chief complaint: Patient states: Pt to ED via POV c/o right flank pain and RLQ abd mf3 pain. pt states she has been having hematuria since Wednesday. Pt states she has hx of kidney stones. Pt also stated she took hydrocodone around 4pm today for pain. Coronavirus screen: Client denies travel out of the [place] in the last 14 days. At this time, the client does not indicate any symptoms associated with coronavirus-19. Ebola Screen: No symptoms or risks identified at this time. Initial Sepsis Screen: Does the patient meet any 2 criteria? No. Patient's initial sepsis screen is negative. Does the patient have a suspected source of infection? No. Patient's initial sepsis screen is negative. Risk Assessment: Do you want to hurt yourself or someone else? Patient reports no desire to harm self or others. Onset of symptoms was November 11, 2024. 19:13 Method Of Arrival: Ambulatory 3 19:13 Acuity: SHAUNA 3 mf3 Triage Assessment: 19:19 General: Appears in no apparent distress. Behavior is calm, cooperative, appropriate mf3 for age. Pain: Denies pain. Complains of pain in right low back Pain currently is 7 out of 10 on a pain scale. GI: Abdomen is flat. Historical: - Immunization history:: Adult Immunizations up to date. - Infectious Disease History:: Denies. - Social history:: Smoking status: Patient denies any tobacco usage or history of. Screenin:05 [facility] ED Fall Risk Assessment (Adult) History of falling in the last 3 months, jb4 including since admission No falls in past 3 months (0 pts) Confusion or Disorientation No (0 pts) Intoxicated or Sedated No (0 pts) Impaired Gait No (0 pts) Mobility Assist Device Used No (0 pt) Altered Elimination No (0 pt) Score/Fall Risk Level 0 - 2 = Low Risk Oriented to surroundings, Maintained a safe environment. Abuse screen: Denies threats or abuse. Nutritional screening: No deficits noted. Tuberculosis screening: No symptoms or risk factors identified. Assessment: 21:05 Reassessment: Patient appears in no apparent distress at this time. Patient and/or jb4 family updated on plan of care and expected duration. Pain level reassessed. Patient is alert, oriented x 3, equal unlabored respirations, skin warm/dry/pink. Patient states feeling better. 22:18 Reassessment: Patient appears in no apparent distress at this time. Patient and/or jb4 family updated on plan of care and expected duration. Pain level reassessed. Patient is alert, oriented x 3, equal unlabored respirations, skin warm/dry/pink. Vital Signs: 19:13 BP 154 / 81; Pulse 72; Resp 17; Temp 97.8; Pulse Ox 100% ; Weight 81.19 kg; Height 5 mf3 ft. 2 in. ; Pain 6/10; 21:12 BP 151 / 86; Pulse 68; Resp 16; Pulse Ox 100% on R/A; jb4 22:00 BP 158 / 82; Pulse 66; Resp 16; Pulse Ox 100% on R/A; jb4 19:13 Body Mass Index 32.74 (81.19 kg, 157.48 cm) mf3 19:13 Pain Scale: Adult 3 ED Course: 19:06 Patient arrived in ED. sj2 19:06 Radha Guzman MD is Attending Physician. sp3 19:18 Triage completed. mf3 19:20 Arm band placed on right wrist. Patient placed in waiting room. mf3 20:13 CT Abd/Pelvis - Without Contrast In Process Unspecified. EDMS 21:05 Alphonso Silva, BENJAMIN is Primary Nurse. jb4 21:05 Patient has correct armband on for positive identification. Bed in low position. Call jb4 light in reach. Side rails up X 1. Provided Education on: plan of care. 21:05 No provider procedures requiring assistance completed. jb4 Administered Medications: 20:45 Drug: TORadol - Ketorolac IVP 15 mg IVP once Route: IVP; Site: right antecubital; jb4 21:15 Follow up: Response: No adverse reaction jb4 20:45 Drug: NS 0.9% IV 1000 ml IV at 1 bolus Per protocol; to be given as a bolus over 60 jb4 minutes Route: IV; Rate: 1 bolus; Site: right antecubital; 21:45 Follow up: Response: No adverse reaction; IV Status: Completed infusion; IV Intake: jb4 1000ml 22:14 Drug: morphine IVP or IV 4 mg IVP once over 4 mins Route: IVP; Infused Over: 4 mins; jb4 Site: right antecubital; 22:47 Follow up: Response: No adverse reaction; Marked relief of symptoms; Pain is decreased jb4 22:14 Drug: Ondansetron IVP 4 mg IVP once; over 2 minutes Route: IVP; Site: right antecubital;jb4 22:47 Follow up: Response: No adverse reaction jb4 22:18 Drug: levofloxacin IVPB 500 mg 100 ml IVPB once over 60 mins Volume: 100 ml; Route: jb4 IVPB; Infused Over: 60 mins; Site: right antecubital; Intake: 21:45 IV: 1000ml; Total: 1000ml. jb4 Outcome: 21:41 Discharge ordered by MD. pool 23:26 Discharged to home via wheelchair, with family, jb4 23:26 Condition: stable 23:26 Discharge instructions given to patient, Instructed on discharge instructions, follow up and referral plans. medication usage, Demonstrated understanding of instructions, follow-up care, medications, Prescriptions given X 2, 23:27 Patient left the ED. jb4 Signatures: Dispatcher [employer] EDMS Alphonso Silva, RN RN jb4 Radha Guzman MD MD sp3 Tong Wilkinson 2 Laureen Stein RN RN mf3 Corrections: (The following items were deleted from the chart) 19:19 19:19 PMHx: cholesterol meds; 3 3 19:19 19:19 PMHx: Hyperlipidemia; 3 3 19:19 19:19 PSHx: Cholecystectomy; mf3 mf3 19:19 19:19 PSHx: hysterectomy; mf3 mf3
[2024-11-14] MEDS ORDERED: ONDANSETRON 4 MG/2 ML VIAL ONE (21:51)
[2024-11-14] MEDS ORDERED: MORPHINE 4 MG/ML SYR ONE (21:52)
[2024-11-14] MEDS ORDERED: Levofloxacin500mg IV 500 MG/100 ML BAG IV ONE (21:52)
[2024-11-14 23:32] VITALS: TEMP 97.8; O2SAT 100
[2024-11-14 23:36] VITALS: BP 158/82
== END 2024-11-14 23:27 | disposition home or self-care (01) ==
LOC: ER 19:01
DX: N20.2 Calculus of kidney with calculus of ureter (principal); N39.0 Urinary tract infection, site not specified; Z87.442 Personal history of urinary calculi
CPT/HCPCS: 96361; 85025; 81001; 36415; 83690; 80053; 74176; 96375; 96374; 99284; J2405; J7030